=== PATIENT | male | born 1965 | race Hispanic/Latino ===

== ENCOUNTER 2017-02-07 00:31 | Emergency (ER) | payer MEDICAID ==
[2017-02-07 00:31] VITALS: BMI 31.2
--- NOTE | 2017-02-07 01:11 | ED PDOC ---
HPI: General Adult Time Seen by Provider: 02/07/17 01:10 Chief Complaint (Nursing): Abnormal Skin Integrity Chief Complaint (Provider): rash History Per: Patient (51 y/o male homeless here with complaint of rash noted today bilateral lower extremity. Has additional finding of lower extremity edema. Patient states this is new for him. IS not currently on any medications. Has had rash ) Past Medical History Vital Signs: Last Vital Signs Temp 98.6 F 02/07/17 00:38 Pulse 108 H 02/07/17 00:38 Resp 18 02/07/17 00:38 BP 141/70 02/07/17 00:38 Pulse Ox 100 02/07/17 02:53 - Medical History PMH: HTN Denies: Alzheimer's Disease, Anemia, Anxiety, Arthritis, Asthma, Atrial Fibrillation, Bipolar Disorder, Bronchitis, CAD, Cardia Arrhythmia, CHF, COPD, Crohn's Disease, Dementia, Depression, Diverticulitis, Emphysema, Fractures, Gastritis, Gall Bladder Disease, HIV, Hypercholesterolemia, Hyperthyroidism, Hypothyroidism, Kidney Stones, Migraine, Mitral Valve Prolapse, Multiple Sclerosis, Osteoporosis, Pancreatitis, Paranoia, Parkinson's Disease, Peripheral Edema, Pneumonia, Post Traumatic Stress Disorder, Pulmonary Embolism , Chronic Kidney Disease, Rheumatoid Arthritis, Schizophrenia, Seizures, Sickle Cell Disease, Sexually Transmitted Disease, Sleep Apnea, TIA - Surgical History Surgical History: Denies: Appendectomy, CABG, Carotid Endarterectomy, Cholecystectomy, Coronary Stent, Pacemaker, Tonsillectomy - Family History Family History: States: Unknown Family Hx - Home Medications Home Medications: Ambulatory Orders Medication Instructions Recorded Cyclobenzaprine [Cyclobenzaprine 10 mg PO TID #20 tab 01/20/17 HCl] Dicyclomine [Bentyl] 10 mg PO QID PRN #10 cap 01/20/17 Hydrocortisone 1% Cream [Cortizone 1 dap TOP BID #1 tube 01/20/17 1% Cream] Ibuprofen [Motrin] 600 mg PO Q6 #20 tab 01/20/17 Lisinopril [Prinivil] 1 tab PO DAILY 01/20/17 amLODIPine [Norvasc] 1 tab PO DAILY 01/20/17 hydroCHLOROthiazide [Hydrodiuril] 1 tab PO DAILY 01/20/17 Mupirocin 2% Cream [Bactroban 30 applic TOP BID PRN #30 tube 02/07/17 Cream] - Allergies Allergies/Adverse Reactions: Allergies Allergy/AdvReac Type Severity Reaction Status Date / Time No Known Allergies Allergy Verified 12/18/16 15:46 - Laboratory Results Result Diagrams: 02/07/17 01:15 02/07/17 01:15 - ECG O2 Sat by Pulse Oximetry: 100 Disposition - Clinical Impression Clinical Impression: Sun-damaged skin, Rash and nonspecific skin eruption - Patient ED Disposition Is Patient to be Admitted: No - Disposition Referrals: [facility] [Outside] Disposition: Routine/Home Disposition Time: 02:52 Condition: FAIR Prescriptions: Mupirocin 2% Cream [Bactroban Cream] 30 applic TOP BID PRN #30 tube PRN Reason: Rash Instructions: Sunburn (ED)
[2017-02-07 01:24] LABS: BASO # 0.1 K/uL (0.0-0.2); BASO % 0.9 % (0.0-2.0); EOS # 0.2 K/uL (0.0-0.7); EOS % 1.4 % (0.0-4.0); HEMATOCRIT 42.1 % (35.0-51.0); LYMPH # 1.7 K/uL (1.0-4.3); LYMPH % 15.7 % (20.0-40.0); MEAN CELL VOLUME 86.3 fl (80.0-94.0); MEAN CORPUSCULAR HEMOGLOBIN 29.5 pg (27.0-31.0); MEAN CORPUSCULAR HGB CONC 34.2 g/dL (33.0-37.0); MEAN PLATELET VOLUME 6.9 fl (7.2-11.7); MONO # 0.9 K/uL (0.0-0.8); MONO % 8.5 % (0.0-10.0); NEUT % 73.5 % (50.0-75.0); RED CELL DISTRIBUTION WIDTH 14.7 % (11.5-14.5); WHITE BLOOD COUNT 10.9 K/uL (4.8-10.8)
[2017-02-07 01:34] LABS: ALB/GLOB RATIO 1.2 (1.0-2.1); ALKALINE PHOSPHATASE 64 U/L (38-126); ALT/SGPT 41 U/L (21-72); AST/SGOT 33 U/L (17-59); BILIRUBIN,TOTAL 1.1 mg/dl (0.2-1.3); BLOOD UREA NITROGEN 10 mg/dl (9-20); CALCIUM 8.8 mg/dL (8.4-10.2); CARBON DIOXIDE 25 mmol/L (22-30); CHLORIDE 94 mmol/L (98-107); GFR AFRICAN-AMERICAN > 60; GLUCOSE,RANDOM 113 mg/dL (75-110); POTASSIUM 3.5 MMOL/L (3.6-5.0); SODIUM 133 mmol/l (132-148); TOTAL PROTEIN 7.5 G/DL (6.3-8.2)
[2017-02-07 03:07] VITALS: BP 149/87; PULSE 86; RESP 16; TEMP 98
[2017-02-07 03:10] VITALS: O2SAT 100
== END 2017-02-07 03:22 | disposition home or self-care (01) ==
LOC: H.ER 00:31
DX: L57.8 Other skin changes due to chronic exposure to nonionizing radiation (principal)

== ENCOUNTER 2017-02-18 13:55 | Emergency (ER) | payer MEDICAID ==
[2017-02-18 13:55] VITALS: BMI 31.2
[2017-02-18 14:22] VITALS: BP 156/85; PULSE 110; RESP 16; TEMP 98.5; O2SAT 100
--- NOTE | 2017-02-18 14:56 | ED PDOC ---
HPI: Skin/Bite Injury Time Seen by Provider: 02/18/17 14:45 Chief Complaint (Nursing): Abnormal Skin Integrity Chief Complaint (Provider): Abnormal Skin Integrity History Per: Patient History/Exam Limitations: no limitations Onset/Duration Of Symptoms: Days Current Symptoms Are (Timing): Still Present Quality Of Symptoms: Itching Severity: Mild Additional Complaint(s): Patient is a 51 year old male who presents to ED for evaluation of an itchy rash to extremities and abdomen for 2 weeks. Patient states he was initially evaluated in ED for rash to lower legs, prescribed Hydrocortisone cream but notes only mild relief. Patient concerned he may have scabies. Notes rash along hands and pubic region. States rash has since spread to upper extremities. Denies any new exposures. Patient also requesting a refill of his GERD medication, Omeprazole Past Medical History Reviewed: Historical Data, Nursing Documentation, Vital Signs Vital Signs: Last Vital Signs Temp 98.5 F 02/18/17 14:14 Pulse 110 H 02/18/17 14:14 Resp 16 02/18/17 14:14 BP 156/85 H 02/18/17 14:14 Pulse Ox 100 02/18/17 15:04 - Medical History PMH: HTN Denies: Alzheimer's Disease, Anemia, Anxiety, Arthritis, Asthma, Atrial Fibrillation, Bipolar Disorder, Bronchitis, CAD, Cardia Arrhythmia, CHF, COPD, Crohn's Disease, Dementia, Depression, Diverticulitis, Emphysema, Fractures, Gastritis, Gall Bladder Disease, HIV, Hypercholesterolemia, Hyperthyroidism, Hypothyroidism, Kidney Stones, Migraine, Mitral Valve Prolapse, Multiple Sclerosis, Osteoporosis, Pancreatitis, Paranoia, Parkinson's Disease, Peripheral Edema, Pneumonia, Post Traumatic Stress Disorder, Pulmonary Embolism , Chronic Kidney Disease, Rheumatoid Arthritis, Schizophrenia, Seizures, Sickle Cell Disease, Sexually Transmitted Disease, Sleep Apnea, TIA - Surgical History Surgical History: No Surg Hx Denies: Appendectomy, CABG, Carotid Endarterectomy, Cholecystectomy, Coronary Stent, Pacemaker, Tonsillectomy - Family History Family History: States: Unknown Family Hx - Home Medications Home Medications: Ambulatory Orders Medication Instructions Recorded Cyclobenzaprine [Cyclobenzaprine 10 mg PO TID #20 tab 01/20/17 HCl] Dicyclomine [Bentyl] 10 mg PO QID PRN #10 cap 01/20/17 Hydrocortisone 1% Cream [Cortizone 1 dap TOP BID #1 tube 01/20/17 1% Cream] Ibuprofen [Motrin] 600 mg PO Q6 #20 tab 01/20/17 Lisinopril [Prinivil] 1 tab PO DAILY 01/20/17 amLODIPine [Norvasc] 1 tab PO DAILY 01/20/17 hydroCHLOROthiazide [Hydrodiuril] 1 tab PO DAILY 01/20/17 Mupirocin 2% Cream [Bactroban 30 applic TOP BID PRN #30 tube 02/07/17 Cream] Omeprazole 40 mg PO DAILY #15 capsule. 02/18/17 Permethrin [Elimite] 60 gm TP ONCE #60 cream..g. 02/18/17 - Allergies Allergies/Adverse Reactions: Allergies Allergy/AdvReac Type Severity Reaction Status Date / Time No Known Allergies Allergy Verified 02/18/17 14:14 Review of Systems ROS Statement: Except As Marked, All Systems Reviewed And Found Negative Constitutional: Negative for: Fever, Chills Cardiovascular: Negative for: Chest Pain, Palpitations Respiratory: Negative for: Shortness of Breath Musculoskeletal: Negative for: Neck Pain, Back Pain Skin: Positive for: Rash Neurological: Negative for: Weakness, Numbness Physical Exam - Reviewed Nursing Documentation Reviewed: Yes Vital Signs Reviewed: Yes - Physical Exam Appears: Positive for: Non-toxic, No Acute Distress Head Exam: Positive for: ATRAUMATIC, NORMAL INSPECTION, NORMOCEPHALIC Skin: Positive for: Normal Color, Warm, Rash (papular lesions to upper axilla, bilateral inner thighs and pubic region ) Eye Exam: Positive for: Normal appearance ENT: Positive for: Normal ENT Inspection Neck: Positive for: Normal, Painless ROM Cardiovascular/Chest: Positive for: Regular Rate, Rhythm Respiratory: Positive for: CNT, Normal Breath Sounds Gastrointestinal/Abdominal: Positive for: Normal Exam, Bowel Sounds, Soft Back: Positive for: Normal Inspection Extremity: Positive for: Normal ROM Neurologic/Psych: Positive for: Alert, Oriented - ECG O2 Sat by Pulse Oximetry: 100 (RA) Pulse Ox Interpretation: Normal Medical Decision Making Medical Decision Making: Time: 1445 Initial Impression: Rash Initial Plan: Advised patient that we will prescribed a new medication and give a 2 week refill of his Omeprazole but he must follow up with PMD as soon as possible for further evaluation. Patient verbalized understanding and states he will see him next week Scribe Attestation: Documented by Loan Garcia, acting as a scribe for Cora Hodge PA-C. Provider Scribe Attestation: All medical record entries made by the Scribe were at my direction and personally dictated by me. I have reviewed the chart and agree that the record accurately reflects my personal performance of the history, physical exam, medical decision making, and the department course for this patient. I have also personally directed, reviewed, and agree with the discharge instructions and disposition. Disposition - Clinical Impression Clinical Impression: Rash and nonspecific skin eruption - Patient ED Disposition Is Patient to be Admitted: No - Disposition Disposition: Routine/Home Disposition Time: 15:43 Condition: FAIR Prescriptions: Permethrin [Elimite] 60 gm TP ONCE #60 cream..g. Omeprazole 40 mg PO DAILY #15 capsule. Instructions: Scabies (ED)
== END 2017-02-18 15:43 | disposition home or self-care (01) ==
LOC: H.ER 13:55
DX: R21 Rash and other nonspecific skin eruption (principal); I10 Essential (primary) hypertension

== ENCOUNTER 2017-04-12 10:48 | Emergency (ER) | payer MEDICAID ==
[2017-04-12 10:49] VITALS: BMI 31.2
[2017-04-12 10:54] VITALS: BP 156/99; PULSE 94; TEMP 97.9; O2SAT 98
[2017-04-12 11:00] VITALS: RESP 20
--- NOTE | 2017-04-12 11:32 | ED PDOC ---
HPI: General Adult Time Seen by Provider: 04/12/17 11:03 Chief Complaint (Nursing): Med Refill Chief Complaint (Provider): med refill History Per: Patient History/Exam Limitations: no limitations Additional Complaint(s): 51yo M in ED with hx of HTN for refill of HCTZ 50mg QD, Amlodipine 10mg QD, lisinopril 25mg QD, states he has been w/p medication x 5d and now has mild SINGH without weakness, vision changes, dizziness. PT states his doctor is too far to get to. Past Medical History Reviewed: Historical Data, Nursing Documentation, Vital Signs Vital Signs: Last Vital Signs Temp 97.9 F 04/12/17 10:58 Pulse 94 H 04/12/17 10:58 Resp 20 04/12/17 10:58 BP 156/99 H 04/12/17 10:58 Pulse Ox 98 04/12/17 10:58 - Medical History PMH: HTN Denies: Alzheimer's Disease, Anemia, Anxiety, Arthritis, Asthma, Atrial Fibrillation, Bipolar Disorder, Bronchitis, CAD, Cardia Arrhythmia, CHF, COPD, Crohn's Disease, Dementia, Depression, Diverticulitis, Emphysema, Fractures, Gastritis, Gall Bladder Disease, HIV, Hypercholesterolemia, Hyperthyroidism, Hypothyroidism, Kidney Stones, Migraine, Mitral Valve Prolapse, Multiple Sclerosis, Osteoporosis, Pancreatitis, Paranoia, Parkinson's Disease, Peripheral Edema, Pneumonia, Post Traumatic Stress Disorder, Pulmonary Embolism , Chronic Kidney Disease, Rheumatoid Arthritis, Schizophrenia, Seizures, Sickle Cell Disease, Sexually Transmitted Disease, Sleep Apnea, TIA - Surgical History Surgical History: Denies: Appendectomy, CABG, Carotid Endarterectomy, Cholecystectomy, Coronary Stent, Pacemaker, Tonsillectomy - Family History Family History: States: Unknown Family Hx - Home Medications Home Medications: Ambulatory Orders Medication Instructions Recorded Cyclobenzaprine [Cyclobenzaprine 10 mg PO TID #20 tab 01/20/17 HCl] Dicyclomine [Bentyl] 10 mg PO QID PRN #10 cap 01/20/17 Hydrocortisone 1% Cream [Cortizone 1 dap TOP BID #1 tube 01/20/17 1% Cream] Ibuprofen [Motrin] 600 mg PO Q6 #20 tab 01/20/17 Lisinopril [Prinivil] 1 tab PO DAILY 01/20/17 amLODIPine [Norvasc] 1 tab PO DAILY 01/20/17 hydroCHLOROthiazide [Hydrodiuril] 1 tab PO DAILY 01/20/17 Mupirocin 2% Cream [Bactroban 30 applic TOP BID PRN #30 tube 02/07/17 Cream] Omeprazole 40 mg PO DAILY #15 capsule.dr 02/18/17 Permethrin [Elimite] 60 gm TP ONCE #60 cream..g. 02/18/17 Lisinopril [Zestril] 20 mg PO DAILY #30 tab 04/12/17 amLODIPine [Norvasc] 10 mg PO DAILY #30 tab 04/12/17 hydroCHLOROthiazide [Microzide] 50 mg PO DAILY #30 tab 04/12/17 - Allergies Allergies/Adverse Reactions: Allergies Allergy/AdvReac Type Severity Reaction Status Date / Time No Known Allergies Allergy Verified 04/12/17 10:58 Review of Systems ROS Statement: Except As Marked, All Systems Reviewed And Found Negative Constitutional: Negative for: Fever, Weakness Eyes: Negative for: Vision Change Cardiovascular: Negative for: Chest Pain, Palpitations Musculoskeletal: Negative for: Neck Pain, Shoulder Pain Neurological: Positive for: Headache (mild). Negative for: Weakness, Numbness, Incoordination, Change in Speech, Confusion, Seizures, Altered Mental Status, Dizziness Physical Exam - Reviewed Nursing Documentation Reviewed: Yes Vital Signs Reviewed: Yes - Physical Exam Appears: Positive for: Well, Non-toxic, No Acute Distress Head Exam: Positive for: ATRAUMATIC, NORMAL INSPECTION, NORMOCEPHALIC Skin: Positive for: Normal Color, Warm, DRY Eye Exam: Positive for: Normal appearance, EOMI, PERRL Cardiovascular/Chest: Positive for: Regular Rate, Rhythm, Chest Non Tender Respiratory: Positive for: CNT, Normal Breath Sounds Gastrointestinal/Abdominal: Positive for: Normal Exam, Bowel Sounds, Soft. Negative for: Tenderness Neurologic/Psych: Positive for: Alert, grassroots organizer II-XII (intact), Oriented. Negative for: Motor/Sensory Deficits - ECG O2 Sat by Pulse Oximetry: 98 Medical Decision Making Medical Decision Making: PT at this time is stable, no longer is complaining of SINGH,. and denies additional symptoms pt is stable for d/c and given Rx for requested medication. 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 Disposition - Clinical Impression Clinical Impression: Medication refill - Patient ED Disposition Is Patient to be Admitted: No Counseled Patient/Family Regarding: Need For Followup, Rx Given - Disposition Referrals: [facility] [Outside] [facility] [Outside] Disposition: Routine/Home Disposition Time: 11:34 Condition: STABLE Prescriptions: amLODIPine [Norvasc] 10 mg PO DAILY #30 tab hydroCHLOROthiazide [Microzide] 50 mg PO DAILY #30 tab Lisinopril [Zestril] 20 mg PO DAILY #30 tab Instructions: Hypertension (ED)
== END 2017-04-12 12:00 | disposition home or self-care (01) ==
LOC: H.ER 10:48
DX: I10 Essential (primary) hypertension (principal)

== ENCOUNTER 2017-05-09 14:41 | Emergency (ER) | payer MEDICAID ==
[2017-05-09 14:41] VITALS: BMI 31.2
[2017-05-09 14:58] VITALS: BP 136/82; PULSE 116; RESP 19; TEMP 98.1; O2SAT 99
[2017-05-09] MEDS ORDERED: Alum-Mag Hydrox-Simethicone Susp (30 mL) PO ONE (15:43)
--- NOTE | 2017-05-09 15:59 | ED PDOC ---
HPI: General Adult Time Seen by Provider: 05/09/17 15:37 Chief Complaint (Nursing): Abdominal Pain Chief Complaint (Provider): nausea, heartburn History Per: Patient History/Exam Limitations: no limitations Current Symptoms Are (Timing): Still Present Recently: Seen In ED Additional Complaint(s): 51yo male states he ran out of his prilosec several weeks ago and now has symptoms of heartburn and nausea return. Denies vomiting, fever, melena or weakness. Past Medical History Reviewed: Historical Data, Nursing Documentation, Vital Signs Vital Signs: Last Vital Signs Temp 98.1 F 05/09/17 14:55 Pulse 116 H 05/09/17 14:55 Resp 19 05/09/17 14:55 BP 136/82 05/09/17 14:55 Pulse Ox 99 05/09/17 16:05 - Medical History PMH: HTN Denies: Alzheimer's Disease, Anemia, Anxiety, Arthritis, Asthma, Atrial Fibrillation, Bipolar Disorder, Bronchitis, CAD, Cardia Arrhythmia, CHF, COPD, Crohn's Disease, Dementia, Depression, Diverticulitis, Emphysema, Fractures, Gastritis, Gall Bladder Disease, HIV, Hypercholesterolemia, Hyperthyroidism, Hypothyroidism, Kidney Stones, Migraine, Mitral Valve Prolapse, Multiple Sclerosis, Osteoporosis, Pancreatitis, Paranoia, Parkinson's Disease, Peripheral Edema, Pneumonia, Post Traumatic Stress Disorder, Pulmonary Embolism , Chronic Kidney Disease, Rheumatoid Arthritis, Schizophrenia, Seizures, Sickle Cell Disease, Sexually Transmitted Disease, Sleep Apnea, TIA - Surgical History Surgical History: Denies: Appendectomy, CABG, Carotid Endarterectomy, Cholecystectomy, Coronary Stent, Pacemaker, Tonsillectomy - Family History Family History: States: Unknown Family Hx - Home Medications Home Medications: Ambulatory Orders Medication Instructions Recorded Cyclobenzaprine [Cyclobenzaprine 10 mg PO TID #20 tab 01/20/17 HCl] Dicyclomine [Bentyl] 10 mg PO QID PRN #10 cap 01/20/17 Hydrocortisone 1% Cream [Cortizone 1 dap TOP BID #1 tube 01/20/17 1% Cream] Ibuprofen [Motrin] 600 mg PO Q6 #20 tab 01/20/17 Lisinopril [Prinivil] 1 tab PO DAILY 01/20/17 amLODIPine [Norvasc] 1 tab PO DAILY 01/20/17 hydroCHLOROthiazide [Hydrodiuril] 1 tab PO DAILY 01/20/17 Mupirocin 2% Cream [Bactroban 30 applic TOP BID PRN #30 tube 02/07/17 Cream] Omeprazole 40 mg PO DAILY #15 capsule. 02/18/17 Permethrin [Elimite] 60 gm TP ONCE #60 cream..g. 02/18/17 Lisinopril [Zestril] 20 mg PO DAILY #30 tab 04/12/17 amLODIPine [Norvasc] 10 mg PO DAILY #30 tab 04/12/17 hydroCHLOROthiazide [Microzide] 50 mg PO DAILY #30 tab 04/12/17 Omeprazole Magnesium [Prilosec Otc] 20 mg PO DAILY #20 tablet. 05/09/17 - Allergies Allergies/Adverse Reactions: Allergies Allergy/AdvReac Type Severity Reaction Status Date / Time No Known Allergies Allergy Verified 04/12/17 10:58 Review of Systems ROS Statement: Except As Marked, All Systems Reviewed And Found Negative Constitutional: Negative for: Fever, Chills Cardiovascular: Negative for: Chest Pain, Palpitations Respiratory: Negative for: Cough, Shortness of Breath Gastrointestinal: Positive for: Nausea. Negative for: Vomiting Genitourinary Male: Negative for: Dysuria, Frequency Musculoskeletal: Negative for: Neck Pain, Shoulder Pain Skin: Negative for: Rash, Lesions, Jaundice Neurological: Negative for: Weakness, Numbness, Headache Physical Exam - Reviewed Nursing Documentation Reviewed: Yes Vital Signs Reviewed: Yes - Physical Exam Appears: Positive for: Well, Non-toxic, No Acute Distress Head Exam: Positive for: ATRAUMATIC, NORMAL INSPECTION, NORMOCEPHALIC Skin: Positive for: Normal Color, Warm, Dry (mild sunburn face) Eye Exam: Positive for: EOMI, Normal appearance, PERRL ENT: Positive for: Normal ENT Inspection Neck: Positive for: Normal, Painless ROM Cardiovascular/Chest: Positive for: Regular Rate, Rhythm Respiratory: Positive for: CNT, Normal Breath Sounds Gastrointestinal/Abdominal: Positive for: Bowel Sounds, Soft, Other (reducible umbilical hernia) Back: Positive for: Normal Inspection Extremity: Positive for: Normal ROM. Negative for: Tenderness Neurologic/Psych: Positive for: Alert, Oriented. Negative for: Motor/Sensory Deficits - ECG O2 Sat by Pulse Oximetry: 99 Medical Decision Making Medical Decision Makinyo male c/o epigastric burning since he ran out of prilosec medication. Unable to acquire new medication. Admits to social alcohol but denies daily etoh intake. Disposition - Clinical Impression Clinical Impression: Epigastric pain - Patient ED Disposition Is Patient to be Admitted: No Counseled Patient/Family Regarding: Need For Followup, Rx Given - Disposition Referrals: [facility] [Outside] Disposition: Routine/Home Disposition Time: 17:30 Condition: IMPROVED Additional Instructions: Followup with PMD and GI in 3-4 days. Return to ER for any new or worsening symptoms. Prescriptions: Omeprazole Magnesium [Prilosec Otc] 20 mg PO DAILY #20 tablet.dr Instructions: Acute Abdominal Pain (ED)
[2017-05-09] MEDS ORDERED: Alum-Mag Hydrox-Simethicone Susp (30 mL) ONE (17:08)
--- NOTE | 2017-05-15 06:32 | CARD ---
APPROVED REPORT EKG Measurement Heart [id number] <Conclusion> Sinus tachycardia Possible Left atrial enlargement Borderline ECG
== END 2017-05-09 18:45 | disposition home or self-care (01) ==
LOC: H.ER 14:41
DX: R10.13 Epigastric pain (principal); R12 Heartburn

== ENCOUNTER 2017-06-04 13:53 | Observation (INO) | payer MEDICAID ==
[2017-06-04 13:54] VITALS: BMI 31.2
--- NOTE | 2017-06-04 14:27 | ED PDOC ---
HPI: General Adult Time Seen by Provider: 06/04/17 14:10 Chief Complaint (Nursing): Med Refill Chief Complaint (Provider): Hypertension History Per: Patient History/Exam Limitations: no limitations Onset/Duration Of Symptoms: Days Have you had recent travel within the past 21 days to any of the following countries: [place], [place], [place] or [place]?: No Additional Complaint(s): The patient is a 51yo male, past medical history of hypertension, presents to the ED for evaluation of headache, present for the past couple days as the patient has not been able to take his medications due to running out of them. He denies any weaknesses and offers no additional medical complaints. 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 Past Medical History Reviewed: Historical Data, Nursing Documentation, Vital Signs Vital Signs: Last Vital Signs Temp 98 F 06/04/17 13:59 Pulse 98 H 06/04/17 15:56 Resp 18 06/04/17 15:42 BP 122/82 06/04/17 15:42 Pulse Ox 96 06/04/17 15:56 - Medical History PMH: HTN Denies: Alzheimer's Disease, Anemia, Anxiety, Arthritis, Asthma, Atrial Fibrillation, Bipolar Disorder, Bronchitis, CAD, Cardia Arrhythmia, CHF, COPD, Crohn's Disease, Dementia, Depression, Diverticulitis, Emphysema, Fractures, Gastritis, Gall Bladder Disease, HIV, Hypercholesterolemia, Hyperthyroidism, Hypothyroidism, Kidney Stones, Migraine, Mitral Valve Prolapse, Multiple Sclerosis, Osteoporosis, Pancreatitis, Paranoia, Parkinson's Disease, Peripheral Edema, Pneumonia, Post Traumatic Stress Disorder, Pulmonary Embolism , Chronic Kidney Disease, Rheumatoid Arthritis, Schizophrenia, Seizures, Sickle Cell Disease, Sexually Transmitted Disease, Sleep Apnea, TIA - Surgical History Surgical History: Denies: Appendectomy, CABG, Carotid Endarterectomy, Cholecystectomy, Coronary Stent, Pacemaker, Tonsillectomy - Family History Family History: States: Unknown Family Hx - Home Medications Home Medications: Ambulatory Orders Medication Instructions Recorded Cyclobenzaprine [Cyclobenzaprine 10 mg PO TID #20 tab 01/20/17 HCl] Dicyclomine [Bentyl] 10 mg PO QID PRN #10 cap 01/20/17 Hydrocortisone 1% Cream [Cortizone 1 dap TOP BID #1 tube 01/20/17 1% Cream] Ibuprofen [Motrin] 600 mg PO Q6 #20 tab 01/20/17 Lisinopril [Prinivil] 1 tab PO DAILY 01/20/17 amLODIPine [Norvasc] 1 tab PO DAILY 01/20/17 hydroCHLOROthiazide [Hydrodiuril] 1 tab PO DAILY 01/20/17 Mupirocin 2% Cream [Bactroban 30 applic TOP BID PRN #30 tube 02/07/17 Cream] Omeprazole 40 mg PO DAILY #15 capsule. 02/18/17 Permethrin [Elimite] 60 gm TP ONCE #60 cream..g. 02/18/17 Lisinopril [Zestril] 20 mg PO DAILY #30 tab 04/12/17 amLODIPine [Norvasc] 10 mg PO DAILY #30 tab 04/12/17 hydroCHLOROthiazide [Microzide] 50 mg PO DAILY #30 tab 04/12/17 Omeprazole Magnesium [Prilosec Otc] 20 mg PO DAILY #20 tablet. 05/09/17 - Allergies Allergies/Adverse Reactions: Allergies Allergy/AdvReac Type Severity Reaction Status Date / Time No Known Allergies Allergy Verified 04/12/17 10:58 Review of Systems ROS Statement: Except As Marked, All Systems Reviewed And Found Negative Constitutional: Negative for: Weakness Neurological: Positive for: Headache Physical Exam - Reviewed Nursing Documentation Reviewed: Yes Vital Signs Reviewed: Yes - Physical Exam Appears: Positive for: Well, Non-toxic, No Acute Distress Head Exam: Positive for: ATRAUMATIC, NORMAL INSPECTION, NORMOCEPHALIC Skin: Positive for: Normal Color, Warm, DRY Eye Exam: Positive for: EOMI, Normal appearance, PERRL Neck: Positive for: Normal, Supple Cardiovascular/Chest: Positive for: Regular Rate, Rhythm Respiratory: Positive for: Normal Breath Sounds. Negative for: Respiratory Distress Extremity: Positive for: Normal ROM, Other (faculty i on call medical assistant strength 5/5 bilaterally). Negative for: Deformity Neurologic/Psych: Positive for: Alert, Oriented. Negative for: Motor/Sensory Deficits - Laboratory Results Result Diagrams: 06/04/17 14:43 06/04/17 14:43 - ECG ECG: Positive for: Interpreted By Me, Viewed By Me ECG Rhythm: Positive for: Sinus Rhythm. Negative for: Nonspecific Changes Interpretation Of ECG: Performed at 1439. Rate: 98 O2 Sat by Pulse Oximetry: 96 Medical Decision Making Medical Decision Making: Time: 1420 Impression: Hypertension Plan: -- CT head -- Labs -- Amlodipine 10 mg -- Lisinopril 20 mg Reassess Time: 1535 CT Head IMPRESSION: Right periventricular and optic radiation lucency is appreciated of an indeterminate etiology in this 51-year-old patient. If the patient has a vasculopathic, then it may simply reflect chronic microangiopathy. Otherwise, evolving lacunar infarction not excluded on acute or subacute basis as well as other etiologies and further clinical correlation advised. Please see discussion above. No acute intra hemorrhage or significant mass effect. Decreased cerebral atrophy appears mild and is of uncertain origin. Yes CT head reviewed with ED attending Dr. Israel Time: 1545 Patient seen and evaluated by Dr. Israel at bedside. Dr. Israel advises patient to be admitted for 24 hours to be seen by neurologist for further evaluation. All questions answered and patient is agreeable. Time: [address] Armijo, neurologist conservation biology professor. Consult placed to Dr. Aguilar medical service conservation biology professor. Time: [address] Aguilar for admission. 16:00PM D/W DR. ARMIJO. REQUESTS MRI OF BRAIN FOR FURTHER EVALUATION OF CT SCAN FINDINGS Scribe Attestation: Documented by Racquel Remy acting as a scribe for DA Vázquez Provider Attestation: All medical record entries made by the Scribe were at my direction and personally dictated by me. I have reviewed the chart and agree that the record accurately reflects my personal performance of the history, physical exam, medical decision making, and the department course for this patient. I have also personally directed, reviewed, and agree with the discharge instructions and disposition. Disposition - Clinical Impression Clinical Impression: Abnormal finding on CT scan, Hypertensive urgency - Patient ED Disposition Is Patient to be Admitted: Yes - Disposition Disposition Time: 16:01 Condition: FAIR Forms: [employer] ([place]) - Pt Status Changed To: Hospital Disposition Of: Observation
[2017-06-04 15:06] LABS: ALBUMIN 4.5 g/dL (3.5-5.0)
[2017-06-04 15:09] LABS: ALB/GLOB RATIO 1.4 (1.0-2.1); AST/SGOT 30 U/L (17-59); BLOOD UREA NITROGEN 14 mg/dl (9-20); GFR AFRICAN-AMERICAN > 60; GFR NON-AFRICAN AMERICAN > 60
[2017-06-04 15:10] LABS: ALT/SGPT 33 U/L (21-72); CALCIUM 9.7 mg/dL (8.4-10.2)
[2017-06-04 15:15] LABS: BASO # 0.2 K/uL (0.0-0.2); BASO % 1.3 % (0.0-2.0); EOS # 0.2 K/uL (0.0-0.7); EOS % 1.6 % (0.0-4.0); LYMPH # 1.9 K/uL (1.0-4.3); LYMPH % 16.1 % (20.0-40.0); MEAN CELL VOLUME 88.7 fl (80.0-94.0); MEAN CORPUSCULAR HEMOGLOBIN 30.6 pg (27.0-31.0); MEAN CORPUSCULAR HGB CONC 34.5 g/dL (33.0-37.0); MEAN PLATELET VOLUME 7.6 fl (7.2-11.7); MONO # 1.1 K/uL (0.0-0.8); MONO % 9.3 % (0.0-10.0); NEUT # 8.6 K/uL (1.8-7.0); NEUT % 71.7 % (50.0-75.0); RBC 5.23 Mil/uL (4.40-5.90)
--- NOTE | 2017-06-04 15:34 | CT ---
PROCEDURE: CT HEAD WITHOUT CONTRAST. HISTORY: AMS COMPARISON: None available. TECHNIQUE: Axial computed tomography images were obtained through the head/brain without intravenous contrast. Radiation dose: Total exam DLP = 875 mGy-cm. This CT exam was performed using one or more of the following dose reduction techniques: Automated exposure control, adjustment of the mA and/or kV according to patient size, and/or use of iterative reconstruction technique. FINDINGS: HEMORRHAGE: No intracranial hemorrhage. BRAIN: No mass effect. Note is made of a right periventricular lucency as well as a rounded lucency in the right optic radiation of the right parietal lobe. If the patient is a vasculopath in these lucent findings may reflect chronic microangiopathy may reflect both but in the absence significant vascular disorder, consider other etiologies including prior demyelination or even evolving acute or subacute lacune anteriorly to the right. Mild expansion of the ventricular sulcal sternal spaces appreciated compatible with diffuse cerebral atrophy, somewhat accelerated for the patient's age of 51 years. Clinically correlate. Posterior fossa contents appear unremarkable to the brainstem. VENTRICLES: . No hydrocephalus. CALVARIUM: Unremarkable. PARANASAL SINUSES: Unremarkable as visualized. No significant inflammatory changes. MASTOID AIR CELLS: Unremarkable as visualized. No inflammatory changes. OTHER FINDINGS: None. IMPRESSION: Right periventricular and optic radiation lucency is appreciated of an indeterminate etiology in this 51-year-old patient. If the patient has a vasculopathic, then it may simply reflect chronic microangiopathy. Otherwise, evolving lacunar infarction not excluded on acute or subacute basis as well as other etiologies and further clinical correlation advised. Please see discussion above. No acute intra hemorrhage or significant mass effect. Decreased cerebral atrophy appears mild and is of uncertain origin. Yes
--- NOTE | 2017-06-04 18:02 | MRI ---
PROCEDURE: MRI BRAIN WITHOUT CONTRAST HISTORY: EVALUATE FOR POSSIBLE SUBACUTE INFARCT COMPARISON: Comparison made with prior CT scan obtained earlier same day. TECHNIQUE: Multiplanar, multisequence MR images of the brain were obtained without intravenous contrast enhancement. FINDINGS: HEMORRHAGE: No acute parenchymal, subarachnoid or extra-axial hemorrhage. DWI: No definitive evidence of acute infarcts seen on diffusion imaging small focal area of what appears represent shine through artifact noted in the subcortical region right posterior temporoparietal watershed zone. BRAIN PARENCHYMA: Re- demonstrated is a any elliptical shaped approximately 14 mm x 6.3 mm focus of increased T2 signal in the right carrington radiata/ inferior centrum semiovale nonspecific the however this lesion also exhibits some shine through type artifact. Rule out a demyelinating plaque. Additionally, there appear to be some very minimal slightly confluent prolonged T2 signal changes in the periventricular white matter most conspicuous in the parietal regions with more discrete focus adjacent to the right parieto-occipital sulcus. Multiple smaller focal areas of increased T2 signal also seen scattered about the subcortical white matter both cerebral hemispheres. Changes are of uncertain etiology however as mentioned above, rule out a demyelinating disease process such as multiple sclerosis. Chronic sequela of small vessel disease, sequela of old trauma, migraine headaches or post infectious/ inflammatory etiologies to be considered. Mild generalized volume loss. VENTRICLES: No evidence of obstructive hydrocephalus CRANIUM: Calvarium appears grossly intact. ORBITS: Orbits and contents grossly unremarkable. PARANASAL SINUSES/MASTOIDS: Clear VASCULAR SYSTEM: Skull base flow voids intact. OTHER FINDINGS: None. IMPRESSION: No evidence of acute intracranial hemorrhage or infarct. There are mild slightly confluent prolonged T2 signal changes seen in the periventricular white matter. Additionally, a discrete elliptical shaped focus of increased T2 signal in the right carrington radiata/centrum semiovale with this long axis perpendicular to the long axis of the ventricles noted. Rule out demyelinating disease process such as multiple sclerosis. See above discussion for additional differential diagnostic considerations. Smaller additional focal areas of increased T2 signal scattered about the subcortical white matter as detailed above.
--- NOTE | 2017-06-05 04:25 | CON ---
LOCATION: The patient's room number is 418, bed number 2. REASON FOR CONSULTATION: Abnormal CAT scan. CHIEF COMPLAINT: The patient was brought into [facility] with history of 4 to 5 days of right frontal headache. Because of the headache, the patient did have CT of the head, which showed some subacute process of stroke. Because of the abnormal CAT scan finding, from neurologic point of view, I was called in and the patient was admitted for further evaluation. PAST MEDICAL HISTORY: Hypertension. PERSONAL HISTORY: He is a smoker. No history of alcohol use. ALLERGIES: NO KNOWN ALLERGIES. REVIEW OF SYSTEMS: As per H and P. MEDICATIONS: Amlodipine, Zestril and lisinopril. PHYSICAL EXAMINATION: VITAL SIGNS: Blood pressure 122/82, mean arterial pressure of 95, respiratory rate is 16, temperature *------*, pulse rate 98 regular. NECK: Supple. No carotid bruit. HEART: Sounds regular. CHEST: Fair air entry. EXTREMITIES: No edema in legs. NEUROLOGIC EXAMINATION: MENTAL STATUS EXAMINATION: He is awake, alert, oriented to person, place and time. Speech is clear. Naming, repetition, fluency, comprehension all within normal. CRANIAL NERVE EXAMINATION: Visual field intact. Pupils reactive to light. Extraocular movements normal. No facial sensory deficit. 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 Hearing is normal. Tongue is midline. Good gag. MOTOR EXAMINATION: Outstretched hand with eyes closed, no drift noted. Power is symmetric on either side. DEEP TENDON REFLEXES: Biceps to brachialis, triceps 1+. Both knees are 1+. Both ankles are absent. Plantars are downgoing. SENSORY EXAMINATION: Grossly intact. GAIT: Romberg sign negative. Tandem is good. CONCLUSION: Upon reviewing his history and neurological examination, the patient has been presenting with no lateralizing sign at present. No ischemic process is going on from neurological point of view. His radiological findings are incidental findings. WORKUP: MRI of the brain showed 14 mm x 6.3 mm focus of increased T2 signal over right carrington radiata inferior to the centrum ovale region. There is also evidence of increased T2 signal in periventricular region noted. Multiple small areas of focal area of T2 signals noted in addition to this. EKG, normal sinus rhythm. BLOOD WORKUP: WBC 12.0, hemoglobin 16.0, hematocrit 46.3, platelet 342. Sodium 130, potassium 4.4, chloride of 94, bicarbonate is 26, BUN of 14, creatinine 0.9. GFR more than 60. Liver functions are normal. RECOMMENDATIONS: 1. The patient should be on blood pressure medication to keep the blood pressure under well control. 2. NSAID can be given for his headache. 3. Aspirin should be given for stroke prophylaxis. The patient should be checked for his lipid profile and given statin. The patient's abstinence from smoking has been well discussed with him. The patient should have further workup of his abnormal MRI that can be done as outpatient. The patient's condition has been well discussed. If medically stable, the patient can be discharged and should have followup visit as outpatient. Raz Dominguez MD
[2017-06-05] MEDS ORDERED: Pantoprazole 20 mg EC Tab PO SCH (09:00)
--- NOTE | 2017-06-05 10:33 | CARD ---
APPROVED REPORT EKG Measurement Heart [id number] <Conclusion> Normal sinus rhythm Possible Left atrial enlargement Borderline ECG
--- NOTE | 2017-06-05 15:22 | CP.PCM.HP ---
History of Present Illness - History of Present Illness History of Present Illness: 51 y/o obese male with a PMHx of HTN, [place] Palsy, presented to the [facility] ED for evaluation of headache. Pt reports headaches started a couple of days ago when he ran out of his anti-hypertension medications. Pain is 7/10, intermittent, nonradiating, w/o changes in vision, exacerbated by movement and mildly alleviated with rest/OTC NSAIDS. No other complaints. He denies fever/chills, changes in vision, dizziness/lightheadedness, CP/SOB/Palpitaitons, N/V/D/C, urinary symptoms, numbness/tingling/weakness. 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 FamilyHx: unknown ED COURSE: Vitals on presentation: T 98, BP 140/92, HR 108, RR 18, POX 96% RA Labs: CBC: 12.0>16.0/46.3<342 CMP: Na 130, otherwise WNL Imaging: Noncontrast CT HEAD: Right periventricular and optic radiation lucency is appreciated of an indeterminate etiology in this 51-year-old patient. If the patient has a vasculopathic, then it may simply reflect chronic microangiopathy. Otherwise, evolving lacunar infarction not excluded on acute or subacute basis as well as other etiologies and further clinical correlation advised. Please see discussion above. No acute intra hemorrhage or significant mass effect. Decreased cerebral atrophy appears mild and is of uncertain origin Admitted for Obs and neuro consult Present on Admission - Present on Admission Any Indicators Present on Admission: No Past Patient History - Infectious Disease Hx of Infectious Diseases: None - Past Medical History & Family History Past Medical History?: Yes - Past Social History Smoking Status: Heavy Smoker > 10 Cigarettes Daily - CARDIAC Hx Cardiac Disorders: Yes Hx Hypertension: Yes - PULMONARY Hx Respiratory Disorders: No - NEUROLOGICAL Hx Neurological Disorder: No - HEENT Hx HEENT Problems: No - RENAL Hx Chronic Kidney Disease: No - ENDOCRINE/METABOLIC Hx Endocrine Disorders: No - HEMATOLOGICAL/ONCOLOGICAL Hx Blood Disorders: No Hx AIDS: No Hx Human Immunodeficiency Virus (HIV): No - INTEGUMENTARY Hx Dermatological Problems: No - MUSCULOSKELETAL/RHEUMATOLOGICAL Hx Arthritis: Yes Hx Falls: No - GASTROINTESTINAL Hx Crohn's Disease: No Hx Diverticulitis: No Hx Gall Bladder Disease: No Hx Gastritis: No Hx Pancreatitis: No - GENITOURINARY/GYNECOLOGICAL Hx Genitourinary Disorders: No - PSYCHIATRIC Hx Psychophysiologic Disorder: No Hx Substance Use: No - SURGICAL HISTORY Hx Appendectomy: No Hx Carotid Endarterectomy: No Hx Cholecystectomy: No Hx Coronary Artery Bypass Graft: No Hx Coronary Stent: No Hx Herniorrhaphy: Yes (umbilical hernia repair) Hx Orthopedic Surgery: Yes (left forearm fx as a kid) Hx Tonsillectomy: No - ANESTHESIA Hx Anesthesia: Yes Hx Anesthesia Reactions: No Meds Home Medications: Home Medication List Medication Instructions Recorded Confirmed Type Aspirin [Ecotrin] 81 mg PO DAILY #30 06/05/17 Rx Atorvastatin [Lipitor] 10 mg PO DAILY #30 tab 06/05/17 Rx Lisinopril/Hydrochlorothiazide 1 each PO DAILY #30 tablet 06/05/17 Rx [Lisinopril-Hctz 20-25 mg Tab] amLODIPine [Norvasc] 10 mg PO DAILY #30 tab 06/05/17 Rx Allergies/Adverse Reactions: Allergies Allergy/AdvReac Type Severity Reaction Status Date / Time No Known Allergies Allergy Verified 04/12/17 10:58 Physical Exam - Constitutional Appears: Non-toxic, No Acute Distress - Head Exam Head Exam: ATRAUMATIC, NORMOCEPHALIC - Eye Exam Eye Exam: EOMI. absent: Conjunctival injection, Scleral icterus Pupil Exam: PERRL - ENT Exam ENT Exam: Mucous Membranes Moist - Respiratory Exam Respiratory Exam: Clear to Auscultation Bilateral, NORMAL BREATHING PATTERN. absent: Rales, Rhonchi, Wheezes - Cardiovascular Exam Cardiovascular Exam: REGULAR RHYTHM, RRR, +S1, +S2. absent: JVD, Rubs - GI/Abdominal Exam GI & Abdominal Exam: Normal Bowel Sounds, Soft. absent: Tenderness - Extremities Exam Extremities exam: Positive for: normal inspection - Back Exam Back exam: NORMAL INSPECTION - Neurological Exam Neurological exam: Alert, CN II-XII Intact, Oriented x3 - Psychiatric Exam Psychiatric exam: Normal Affect, Normal Mood Results - Vital Signs Recent Vital Signs: Last Vital Signs Temp 97.5 F L 06/05/17 12:00 Pulse 88 06/05/17 12:00 Resp 18 06/05/17 12:00 BP 136/79 06/05/17 12:00 Pulse Ox 97 06/05/17 12:00 - Labs Result Diagrams: 06/04/17 14:43 06/04/17 14:43 Assessment & Plan (1) Abnormal finding on CT scan Assessment and Plan: rule out CVA Neurology on board Brain MRI ordered Status: Acute (2) Hypertension Assessment and Plan: resumed pts home meds Status: Chronic
--- NOTE | 2017-06-05 15:22 | CP.PCM.DIS ---
Provider - Provider Date of Admission: 06/04/17 16:07 Attending physician: Tello Aguilar MD Time Spent in preparation of Discharge (in minutes): 35 Diagnosis - Discharge Diagnosis (1) Abnormal finding on CT scan Status: Acute Hospital Course - Lab Results Lab Results: Most Recent Lab Values WBC 12.0 K/uL (4.8-10.8) H 06/04/17 14:43 RBC 5.23 Mil/uL (4.40-5.90) 06/04/17 14:43 Hgb 16.0 g/dL (12.0-18.0) 06/04/17 14:43 Hct 46.3 % (35.0-51.0) 06/04/17 14:43 MCV 88.7 fl (80.0-94.0) D 06/04/17 14:43 MCH 30.6 pg (27.0-31.0) 06/04/17 14:43 MCHC 34.5 g/dL (33.0-37.0) 06/04/17 14:43 RDW 13.0 % (11.5-14.5) 06/04/17 14:43 Plt Count 342 K/uL (130-400) 06/04/17 14:43 MPV 7.6 fl (7.2-11.7) 06/04/17 14:43 Neut % (Auto) 71.7 % (50.0-75.0) 06/04/17 14:43 Lymph % (Auto) 16.1 % (20.0-40.0) L 06/04/17 14:43 [place] % (Auto) 9.3 % (0.0-10.0) 06/04/17 14:43 Eos % (Auto) 1.6 % (0.0-4.0) 06/04/17 14:43 Baso % (Auto) 1.3 % (0.0-2.0) 06/04/17 14:43 Neut # 8.6 K/uL (1.8-7.0) H 06/04/17 14:43 Lymph # 1.9 K/uL (1.0-4.3) 06/04/17 14:43 [place] # 1.1 K/uL (0.0-0.8) H 06/04/17 14:43 Eos # 0.2 K/uL (0.0-0.7) 06/04/17 14:43 Baso # 0.2 K/uL (0.0-0.2) 06/04/17 14:43 Sodium 130 mmol/l (132-148) L 06/04/17 14:43 Potassium 4.4 MMOL/L (3.6-5.0) 06/04/17 14:43 Chloride 94 mmol/L (98-107) L 06/04/17 14:43 Carbon Dioxide 26 mmol/L (22-30) 06/04/17 14:43 Anion Gap 14 (10-20) 06/04/17 14:43 BUN 14 mg/dl (9-20) 06/04/17 14:43 Creatinine 0.9 mg/dL (0.8-1.5) 06/04/17 14:43 Est GFR ( Amer) > 60 06/04/17 14:43 Est GFR (Non-Af Amer) > 60 06/04/17 14:43 Random Glucose 87 mg/dL (75-110) 06/04/17 14:43 Calcium 9.7 mg/dL (8.4-10.2) 06/04/17 14:43 Total Bilirubin 0.7 mg/dl (0.2-1.3) 06/04/17 14:43 AST 30 U/L (17-59) 06/04/17 14:43 ALT 33 U/L (21-72) 06/04/17 14:43 Alkaline Phosphatase 67 U/L (38-126) 06/04/17 14:43 Total Protein 7.8 G/DL (6.3-8.2) 06/04/17 14:43 Albumin 4.5 g/dL (3.5-5.0) 06/04/17 14:43 Globulin 3.3 gm/dL (2.2-3.9) 06/04/17 14:43 Albumin/Globulin Ratio 1.4 (1.0-2.1) 06/04/17 14:43 - Hospital Course Hospital Course: 51 y/o obese male with a PMHx of HTN, [place] Palsy, presented to the [facility] ED for evaluation of headache. Pt reports headaches started a couple of days ago when he ran out of his anti-hypertension medications. Pain is 7/10, intermittent, nonradiating, w/o changes in vision, exacerbated by movement and mildly alleviated with rest/OTC NSAIDS. No other complaints. He denies fever/chills, changes in vision, dizziness/lightheadedness, CP/SOB/Palpitaitons, N/V/D/C, urinary symptoms, numbness/tingling/weakness. 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 FamilyHx: unknown ED COURSE: Vitals on presentation: T 98, BP 140/92, HR 108, RR 18, POX 96% RA Labs: CBC: 12.0>16.0/46.3<342 CMP: Na 130, otherwise WNL Imaging: Noncontrast CT HEAD: Right periventricular and optic radiation lucency is appreciated of an indeterminate etiology in this 51-year-old patient. If the patient has a vasculopathic, then it may simply reflect chronic microangiopathy. Otherwise, evolving lacunar infarction not excluded on acute or subacute basis as well as other etiologies and further clinical correlation advised. Please see discussion above. No acute intra hemorrhage or significant mass effect. Decreased cerebral atrophy appears mild and is of uncertain origin Admitted for Obs and neuro consult HOSPITAL COURSE: Pt remained normotensive thoughout stay. Dr. Dominguez saw the pt and recommeded decreased tobacco usage, starting the pt on statin and controlling BP. Brain MRI was performed and was negative for acute hemorrhage or infarct. After an uneventful hospital stay, the pt was discharged in stable condition. Discharge Exam - Head Exam Head Exam: ATRAUMATIC, NORMAL INSPECTION, NORMOCEPHALIC - Eye Exam Eye Exam: EOMI Pupil Exam: PERRL - Respiratory Exam Respiratory Exam: Clear to PA & Lateral, NORMAL BREATHING PATTERN, UNREMARKABLE - Cardiovascular Exam Cardiovascular Exam: REGULAR RHYTHM, RRR, +S1, +S2. absent: JVD - GI/Abdominal Exam GI & Abdominal Exam: Normal Bowel Sounds, Unremarkable - Extremities Exam Extremities exam: normal inspection - Neurological Exam Neurological exam: Alert, CN II-XII Intact, Oriented x3, Reflexes Normal - Psychiatric Exam Psychiatric exam: Normal Affect, Normal Mood - Skin Skin Exam: Dry, Intact, Normal Color Discharge Plan - Discharge Medications Prescriptions: amLODIPine [Norvasc] 10 mg PO DAILY #30 tab Aspirin [Ecotrin] 81 mg PO DAILY #30 Atorvastatin [Lipitor] 10 mg PO DAILY #30 tab Lisinopril/Hydrochlorothiazide [Lisinopril-Hctz 20-25 mg Tab] 1 each PO DAILY # 30 tablet - Follow Up Plan Condition: FAIR Disposition: HOME/ ROUTINE Instructions: Chronic Hypertension (DC) Additional Instructions: patient cleared for discharge to Home today by ] Rx for all meds provided pt. will f/u with in 1 week fu with neuro outpatient in 1 week
[2017-06-05 15:48] VITALS: BP 102/65; PULSE 99; RESP 20; TEMP 98; O2SAT 98
== END 2017-06-05 16:25 | disposition home or self-care (01) ==
LOC: H.ER 13:53 → H.ERHOLD 16:07 → H.TEL 18:56
PROVIDERS: ADMIT Family Medicine; ATTEND Family Medicine
DX: R93.0 Abnormal findings on diagnostic imaging of skull and head, not elsewhere classified (principal); I10 Essential (primary) hypertension; G51.0 Bell's palsy; E66.9 Obesity, unspecified; Z68.31 Body mass index [BMI] 31.0-31.9, adult; F17.200 Nicotine dependence, unspecified, uncomplicated

== ENCOUNTER 2017-06-30 22:40 | Emergency (ER) | payer MEDICAID ==
[2017-06-30 22:40] VITALS: BMI 31.2
--- NOTE | 2017-06-30 23:10 | ED PDOC ---
HPI: General Adult Time Seen by Provider: 06/30/17 23:04 Chief Complaint (Nursing): Medical Clearance Chief Complaint (Provider): insect bites History Per: Patient Additional Complaint(s): 51-year-old male with history of high blood pressure presents to emergency department with insect bites to buttocks area 2 days. Patient believes he was bit by mosquitoes. Patient denies any symptoms of possible infestation. He has history of bedbugs and states that his symptoms today are not consistent with previous bedbugs infestations. Patient has insect bites to buttocks region only. He denies active drainage, no fever or chills. Past Medical History Reviewed: Historical Data, Nursing Documentation, Vital Signs Vital Signs: Last Vital Signs Temp 98.1 F 06/30/17 23:22 Pulse 83 06/30/17 23:22 Resp 18 06/30/17 23:22 BP 147/81 06/30/17 23:22 Pulse Ox 98 06/30/17 23:22 - Medical History PMH: Arthritis, HTN Denies: Alzheimer's Disease, Anemia, Anxiety, Asthma, Atrial Fibrillation, Bipolar Disorder, Bronchitis, CAD, Cardia Arrhythmia, CHF, COPD, Crohn's Disease , Dementia, Depression, Diverticulitis, Emphysema, Fractures, Gastritis, Gall Bladder Disease, HIV, Hypercholesterolemia, Hyperthyroidism, Hypothyroidism, Kidney Stones, Migraine, Mitral Valve Prolapse, Multiple Sclerosis, Osteoporosis , Pancreatitis, Paranoia, Parkinson's Disease, Peripheral Edema, Pneumonia, Post Traumatic Stress Disorder, Pulmonary Embolism, Chronic Kidney Disease, Rheumatoid Arthritis, Schizophrenia, Seizures, Sickle Cell Disease, Sexually Transmitted Disease, Sleep Apnea, TIA - Surgical History Surgical History: Denies: Appendectomy, CABG, Carotid Endarterectomy, Cholecystectomy, Coronary Stent, Pacemaker, Tonsillectomy - Family History Family History: States: No Known Family Hx - Living Arrangements Living Arrangements: Other (non-domiciled) - Social History Current smoker - smoking cessation education provided: No Alcohol: None Drugs: Denies - Home Medications Home Medications: Ambulatory Orders Medication Instructions Recorded Aspirin [Ecotrin] 81 mg PO DAILY #30 06/05/17 Atorvastatin [Lipitor] 10 mg PO DAILY #30 tab 06/05/17 Lisinopril/Hydrochlorothiazide 1 each PO DAILY #30 tablet 06/05/17 [Lisinopril-Hctz 20-25 mg Tab] amLODIPine [Norvasc] 10 mg PO DAILY #30 tab 06/05/17 DiphenhydrAMINE [Benadryl] 25 mg PO ASDIR #1 packet 06/30/17 Prednisone 50 mg PO DAILY #5 tablet 06/30/17 - Allergies Allergies/Adverse Reactions: Allergies Allergy/AdvReac Type Severity Reaction Status Date / Time No Known Allergies Allergy Verified 04/12/17 10:58 Review of Systems ROS Statement: Except As Marked, All Systems Reviewed And Found Negative Constitutional: Negative for: Fever Skin: Positive for: Other (insect bites to buttocks) Physical Exam - Reviewed Nursing Documentation Reviewed: Yes Vital Signs Reviewed: Yes - Physical Exam Appears: Positive for: Well, Non-toxic, No Acute Distress Skin: Positive for: Rash (Raised erythematous lesions noted to buttocks bilaterally, appearance consistent with insect bites, no acute infection) Eye Exam: Positive for: Normal appearance Cardiovascular/Chest: Positive for: Regular Rate, Rhythm Respiratory: Positive for: Normal Breath Sounds Neurologic/Psych: Positive for: Alert, Oriented - ECG O2 Sat by Pulse Oximetry: 98 Pulse Ox Interpretation: Normal Medical Decision Making Medical Decision Makin51 year old with insect bites to buttocks Patient given initial dose of prednisone and Benadryl. Prescriptions given for same. Patient was advised to keep area clean and dry and take meds as directed. He was referred to clinic for follow up. Disposition - Clinical Impression Clinical Impression: Insect bites - Patient ED Disposition Is Patient to be Admitted: No Counseled Patient/Family Regarding: Diagnosis, Need For Followup, Rx Given - Disposition Referrals: [facility] [Outside] Disposition: Routine/Home Disposition Time: 23:05 Condition: STABLE Additional Instructions: Take rx meds as directed. Follow up in 2-3 days with clinic. Prescriptions: DiphenhydrAMINE [Benadryl] 25 mg PO ASDIR #1 packet Prednisone 50 mg PO DAILY #5 tablet Instructions: Insect Bite or Sting (ED) Forms: [employer] (Croatian)
[2017-06-30 23:23] VITALS: BP 147/81; PULSE 83; RESP 18; TEMP 98.1; O2SAT 98
== END 2017-06-30 23:48 | disposition home or self-care (01) ==
LOC: H.ER 22:40
DX: T14.8 Other injury of unspecified body region (principal); W57.XXXA Bitten or stung by nonvenomous insect and other nonvenomous arthropods, initial encounter; Y92.89 Other specified places as the place of occurrence of the external cause; I10 Essential (primary) hypertension; Z79.82 Long term (current) use of aspirin

== ENCOUNTER 2017-09-01 13:55 | Emergency (ER) | payer MEDICAID ==
[2017-09-01 13:56] VITALS: BMI 31.2
[2017-09-01 14:03] VITALS: RESP 16; TEMP 98
--- NOTE | 2017-09-01 14:34 | ED PDOC ---
Lower Extremity Pain/Injury Time Seen by Provider: 09/01/17 14:15 Chief Complaint (Nursing): Lower Extremity Problem/Injury Chief Complaint (Provider): Left ankle pain History Per: Patient History/Exam Limitations: no limitations Onset/Duration Of Symptoms: Days (x1) Current Symptoms Are (Timing): Still Present Additional Complaint(s): Juan J is a 51 y/o non-domiciled male who presents to the ED complaining of left ankle pain since this morning. He states that this morning he was sitting on the bench when his leg fell asleep, and he jumped up, rolling the left ankle. Took Ibuprofen this morning without relief. He is able to ambulate and move his toes. PMD: Provider TBD Past Medical History Reviewed: Historical Data, Nursing Documentation, Vital Signs Vital Signs: Last Vital Signs Temp 98.0 F 09/01/17 14:00 Pulse 97 H 09/01/17 14:00 Resp 16 09/01/17 14:00 BP 178/112 H 09/01/17 14:00 Pulse Ox 98 09/01/17 14:00 - Medical History PMH: Arthritis, HTN Denies: Alzheimer's Disease, Anemia, Anxiety, Asthma, Atrial Fibrillation, Bipolar Disorder, Bronchitis, CAD, Cardia Arrhythmia, CHF, COPD, Crohn's Disease , Dementia, Depression, Diverticulitis, Emphysema, Fractures, Gastritis, Gall Bladder Disease, HIV, Hypercholesterolemia, Hyperthyroidism, Hypothyroidism, Kidney Stones, Migraine, Mitral Valve Prolapse, Multiple Sclerosis, Osteoporosis , Pancreatitis, Paranoia, Parkinson's Disease, Peripheral Edema, Pneumonia, Post Traumatic Stress Disorder, Pulmonary Embolism, Chronic Kidney Disease, Rheumatoid Arthritis, Schizophrenia, Seizures, Sickle Cell Disease, Sexually Transmitted Disease, Sleep Apnea, TIA - Surgical History Surgical History: Denies: Appendectomy, CABG, Carotid Endarterectomy, Cholecystectomy, Coronary Stent, Pacemaker, Tonsillectomy - Family History Family History: States: Unknown Family Hx - Living Arrangements Living Arrangements: Other (Non-domiciled) - Home Medications Home Medications: Ambulatory Orders Medication Instructions Recorded Aspirin [Ecotrin] 81 mg PO DAILY #30 06/05/17 Atorvastatin [Lipitor] 10 mg PO DAILY #30 tab 06/05/17 Lisinopril/Hydrochlorothiazide 1 each PO DAILY #30 tablet 06/05/17 [Lisinopril-Hctz 20-25 mg Tab] amLODIPine [Norvasc] 10 mg PO DAILY #30 tab 06/05/17 DiphenhydrAMINE [Benadryl] 25 mg PO ASDIR #1 packet 06/30/17 Prednisone 50 mg PO DAILY #5 tablet 06/30/17 traMADol [Ultram] 50 mg PO Q6H PRN #5 tab 09/01/17 - Allergies Allergies/Adverse Reactions: Allergies Allergy/AdvReac Type Severity Reaction Status Date / Time No Known Allergies Allergy Verified 04/12/17 10:58 Review of Systems ROS Statement: Except As Marked, All Systems Reviewed And Found Negative Musculoskeletal: Positive for: Foot Pain (Left ankle) Physical Exam - Reviewed Nursing Documentation Reviewed: Yes Vital Signs Reviewed: Yes - Physical Exam Appears: Positive for: Well, Non-toxic, No Acute Distress Head Exam: Positive for: ATRAUMATIC, NORMAL INSPECTION, NORMOCEPHALIC Skin: Positive for: Normal Color, Warm, Dry Eye Exam: Positive for: Normal appearance Neck: Positive for: Normal Respiratory: Negative for: Accessory Muscle Use, Respiratory Distress Extremity: Positive for: Normal ROM, Capillary Refill (< 2 sec). Negative for: Tenderness, Pedal Edema, Deformity Neurologic/Psych: Positive for: Alert, Oriented - ECG O2 Sat by Pulse Oximetry: 98 (RA) Pulse Ox Interpretation: Normal Medical Decision Making Medical Decision Making: Time: 14:45 Initial Plan: --X-Ray Left Foot --Tramadol 50 mg PO --Pending reevaluation Scribe Attestation: Documented by Pamela Garcia, acting as a scribe for Azucena Cherry PA-C Provider Scribe Attestation: All medical record entries made by the Scribe were at my direction and personally dictated by me. I have reviewed the chart and agree that the record accurately reflects my personal performance of the history, physical exam, medical decision making, and the department course for this patient. I have also personally directed, reviewed, and agree with the discharge instructions and disposition. Disposition - Clinical Impression Clinical Impression: Foot injury - Disposition Disposition: Routine/Home Disposition Time: 15:29 Condition: GOOD Prescriptions: traMADol [Ultram] 50 mg PO Q6H PRN #5 tab PRN Reason: Pain Instructions: Foot Sprain (ED) Forms: [employer] (Micronesian)
[2017-09-01 15:32] VITALS: BP 135/85; PULSE 91; O2SAT 99
--- NOTE | 2017-09-01 18:41 | RAD ---
PROCEDURE: Left Foot Radiographs. HISTORY: right foot pain, twisted ankle COMPARISON: None. FINDINGS: BONES: Normal. No fracture. JOINTS: Normal. SOFT TISSUES: Normal. OTHER FINDINGS: None. IMPRESSION: No acute findings related to/accounting for the clinical presentation. Please note: No preliminary report/ innterpretation of this examination provided by emergency department personnel.
== END 2017-09-01 15:34 | disposition home or self-care (01) ==
LOC: H.ER 13:55
DX: M79.672 Pain in left foot (principal); I10 Essential (primary) hypertension; Z79.82 Long term (current) use of aspirin

== ENCOUNTER 2017-10-30 12:07 | Emergency (ER) | payer MEDICAID ==
[2017-10-30 12:08] VITALS: BMI 31.2
[2017-10-30 12:12] VITALS: BP 161/103; PULSE 99; RESP 16; TEMP 97; O2SAT 99
--- NOTE | 2017-10-30 12:23 | ED PDOC ---
HPI: General Adult Time Seen by Provider: 10/30/17 12:14 Chief Complaint (Nursing): Cough, Cold, Congestion Chief Complaint (Provider): Flu-Like Symptoms History Per: Patient History/Exam Limitations: no limitations Onset/Duration Of Symptoms: Days (x3) Have you had recent travel within the past 21 days to any of the following countries: [place], [place], [place] or [place]?: No Current Symptoms Are (Timing): Still Present Additional Complaint(s): 52 year old male presents to ED with complaints of flu-like symptoms x3 days and has a past medical history of HTN. (+) productive cough, chest tightness, subjective fever, pleuritic chest pain, sore throat, headache, and body aches. ( -) sneezing. Denies receiving the flu vaccine this year. PCP: Dr. Blake Manuel Past Medical History Reviewed: Historical Data, Nursing Documentation, Vital Signs Vital Signs: Last Vital Signs Temp 97.0 F L 10/30/17 12:09 Pulse 99 H 10/30/17 12:09 Resp 16 10/30/17 12:09 BP 161/103 H 10/30/17 12:09 Pulse Ox 99 10/30/17 12:47 - Medical History PMH: Arthritis, HTN Denies: Alzheimer's Disease, Anemia, Anxiety, Asthma, Atrial Fibrillation, Bipolar Disorder, Bronchitis, CAD, Cardia Arrhythmia, CHF, COPD, Crohn's Disease , Dementia, Depression, Diverticulitis, Emphysema, Fractures, Gastritis, Gall Bladder Disease, HIV, Hypercholesterolemia, Hyperthyroidism, Hypothyroidism, Kidney Stones, Migraine, Mitral Valve Prolapse, Multiple Sclerosis, Osteoporosis , Pancreatitis, Paranoia, Parkinson's Disease, Peripheral Edema, Pneumonia, Post Traumatic Stress Disorder, Pulmonary Embolism, Chronic Kidney Disease, Rheumatoid Arthritis, Schizophrenia, Seizures, Sickle Cell Disease, Sexually Transmitted Disease, Sleep Apnea, TIA - Surgical History Surgical History: Denies: Appendectomy, CABG, Carotid Endarterectomy, Cholecystectomy, Coronary Stent, Pacemaker, Tonsillectomy - Family History Family History: States: Unknown Family Hx - Social History Current smoker - smoking cessation education provided: Yes Ex-Smoker (has not smoked in the last 12 months): No Drugs: Denies - Immunization History Hx Influenza Vaccination: No - Home Medications Home Medications: Ambulatory Orders Medication Instructions Recorded Aspirin [Ecotrin] 81 mg PO DAILY #30 06/05/17 Atorvastatin [Lipitor] 10 mg PO DAILY #30 tab 06/05/17 Lisinopril/Hydrochlorothiazide 1 each PO DAILY #30 tablet 06/05/17 [Lisinopril-Hctz 20-25 mg Tab] amLODIPine [Norvasc] 10 mg PO DAILY #30 tab 06/05/17 DiphenhydrAMINE [Benadryl] 25 mg PO ASDIR #1 packet 06/30/17 Prednisone 50 mg PO DAILY #5 tablet 06/30/17 traMADol [Ultram] 50 mg PO Q6H PRN #5 tab 09/01/17 Azithromycin [Zithromax] 250 mg PO DAILY #6 tab 09/18/17 Dextromethorphan Polistirex 30 mg PO BID #100 tennille.er.12h 10/30/17 [Delsym] Guaifenesin [Mucinex] 600 mg PO BID #14 tab.er.12h 10/30/17 Oseltamivir Phosphate [Tamiflu] 75 mg PO BID #10 capsule 10/30/17 - Allergies Allergies/Adverse Reactions: Allergies Allergy/AdvReac Type Severity Reaction Status Date / Time No Known Allergies Allergy Verified 09/18/17 08:35 Review of Systems ROS Statement: Except As Marked, All Systems Reviewed And Found Negative Constitutional: Positive for: Fever (subjective), Other ((+) body aches) ENT: Positive for: Throat Pain. Negative for: Nose Discharge Cardiovascular: Positive for: Chest Pain (chest tightness) Respiratory: Positive for: Cough (productive), Pleuritic Pain Neurological: Positive for: Headache Physical Exam - Reviewed Nursing Documentation Reviewed: Yes Vital Signs Reviewed: Yes - Physical Exam Appears: Positive for: Non-toxic, No Acute Distress Skin: Positive for: Normal Color, Warm, Dry Eye Exam: Positive for: Normal appearance ENT: Positive for: Normal ENT Inspection, Pharynx Is (clear), TM Is/Are (clear) . Negative for: Sinus Pain/Drainage, Pharyngeal Erythema Neck: Positive for: Normal Respiratory: Positive for: Normal Breath Sounds. Negative for: Respiratory Distress Lymphatic: Negative for: Adenopathy Neurologic/Psych: Positive for: Alert. Negative for: Oriented - ECG O2 Sat by Pulse Oximetry: 99 (RA) Pulse Ox Interpretation: Normal Medical Decision Making Medical Decision Makin Initial impression: viral illness Initial plan: * CXR 1245 CXR unchanged from previous: mild left atelectasis Patient is stable for discharge with Rx for Tamiflu. Scribe Attestation: Documented by Carmen Jacob, acting as a scribe for Magalie Khan PA-C. Provider Scribe Attestation: All medical record entries made by the Scribe were at my direction and personally dictated by me. I have reviewed the chart and agree that the record accurately reflects my personal performance of the history, physical exam, medical decision making, and the department course for this patient. I have also personally directed, reviewed, and agree with the discharge instructions and disposition. Disposition - Clinical Impression Clinical Impression: Influenza-like symptoms - Patient ED Disposition Is Patient to be Admitted: No Counseled Patient/Family Regarding: Need For Followup - Disposition Disposition: Routine/Home Disposition Time: 12:45 Condition: STABLE Prescriptions: Dextromethorphan Polistirex [Delsym] 30 mg PO BID #100 tennille.er.12h Guaifenesin [Mucinex] 600 mg PO BID #14 tab.er.12h Oseltamivir Phosphate [Tamiflu] 75 mg PO BID #10 capsule Instructions: Influenza (ED) Forms: [employer] (Belarusian)
--- NOTE | 2017-10-30 15:28 | RAD ---
HISTORY: cough COMPARISON: Chest radiographs 09/18/2017. TECHNIQUE: Chest PA and lateral FINDINGS: LUNGS: No active pulmonary disease. PLEURA: No significant pleural effusion identified. No pneumothorax apparent. CARDIOVASCULAR: Normal. OSSEOUS STRUCTURES: No significant abnormalities. VISUALIZED UPPER ABDOMEN: Normal. OTHER FINDINGS: None. IMPRESSION: No interval acute cardiopulmonary disease appreciated.
== END 2017-10-30 14:07 | disposition home or self-care (01) ==
LOC: H.ER 12:07
DX: R05 Cough (principal); R50.9 Fever, unspecified; B34.9 Viral infection, unspecified; F17.200 Nicotine dependence, unspecified, uncomplicated; I10 Essential (primary) hypertension; Z79.82 Long term (current) use of aspirin

== ENCOUNTER 2017-11-04 14:09 | Emergency (ER) | payer MEDICAID ==
[2017-11-04 14:09] VITALS: BMI 31.2
[2017-11-04 14:23] VITALS: TEMP 97.7
[2017-11-04] MEDS ORDERED: Albuterol-Ipratrop 3 mg / 0.5 (3 ml) UD ONE (14:49)
[2017-11-04] MEDS: Albuterol-Ipratrop 3 mg / 0.5 (3 ml) UD INH STA (14:52)
--- NOTE | 2017-11-04 15:11 | ED PDOC ---
HPI: CCC, URI, Sore Throat Time Seen by Provider: 11/04/17 14:23 Chief Complaint (Nursing): Chest Pain Chief Complaint (Provider): Cough, "I'm still sick" History Per: Patient History/Exam Limitations: no limitations Onset/Duration Of Symptoms: Days Current Symptoms Are (Timing): Still Present Location Of Pain: Diffuse Myalgias Sick Contacts (Context): None Associated Symptoms: Chills, Cough, Sputum. denies: Fever, Sore Throat Ear Symptoms: Bilateral: None Additional Complaint(s): Cough, yellow phlegm x 2 weeks. Chest pain only when coughing. Past Medical History Reviewed: Historical Data, Nursing Documentation, Vital Signs Vital Signs: Last Vital Signs Temp 97.7 F 11/04/17 14:20 Pulse 109 H 11/04/17 14:20 Resp 20 11/04/17 14:20 BP 168/108 H 11/04/17 14:20 Pulse Ox 97 11/04/17 14:20 - Medical History PMH: Arthritis, HTN Denies: Alzheimer's Disease, Anemia, Anxiety, Asthma, Atrial Fibrillation, Bipolar Disorder, Bronchitis, CAD, Cardia Arrhythmia, CHF, COPD, Crohn's Disease , Dementia, Depression, Diverticulitis, Emphysema, Fractures, Gastritis, Gall Bladder Disease, HIV, Hypercholesterolemia, Hyperthyroidism, Hypothyroidism, Kidney Stones, Migraine, Mitral Valve Prolapse, Multiple Sclerosis, Osteoporosis , Pancreatitis, Paranoia, Parkinson's Disease, Peripheral Edema, Pneumonia, Post Traumatic Stress Disorder, Pulmonary Embolism, Chronic Kidney Disease, Rheumatoid Arthritis, Schizophrenia, Seizures, Sickle Cell Disease, Sexually Transmitted Disease, Sleep Apnea, TIA - Surgical History Surgical History: Denies: Appendectomy, CABG, Carotid Endarterectomy, Cholecystectomy, Coronary Stent, Pacemaker, Tonsillectomy - Family History Family History: States: Unknown Family Hx - Living Arrangements Living Arrangements: Other - Social History Current smoker - smoking cessation education provided: No - Immunization History Hx Influenza Vaccination: No - Home Medications Home Medications: Ambulatory Orders Medication Instructions Recorded Aspirin [Ecotrin] 81 mg PO DAILY #30 06/05/17 Atorvastatin [Lipitor] 10 mg PO DAILY #30 tab 06/05/17 Lisinopril/Hydrochlorothiazide 1 each PO DAILY #30 tablet 06/05/17 [Lisinopril-Hctz 20-25 mg Tab] amLODIPine [Norvasc] 10 mg PO DAILY #30 tab 06/05/17 DiphenhydrAMINE [Benadryl] 25 mg PO ASDIR #1 packet 06/30/17 Prednisone 50 mg PO DAILY #5 tablet 06/30/17 traMADol [Ultram] 50 mg PO Q6H PRN #5 tab 09/01/17 Azithromycin [Zithromax] 250 mg PO DAILY #6 tab 09/18/17 Dextromethorphan Polistirex 30 mg PO BID #100 tennille.er.12h 10/30/17 [Delsym] Guaifenesin [Mucinex] 600 mg PO BID #14 tab.er.12h 10/30/17 Oseltamivir Phosphate [Tamiflu] 75 mg PO BID #10 capsule 10/30/17 Albuterol 0.083% [Albuterol 0.083% 2.5 mg IH QID PRN #20 11/04/17 Inhal Jamee (2.5 mg/3 ml) UD] Albuterol HFA [Ventolin HFA 90 1 puff IH BID PRN #1 unit 11/04/17 mcg/actuation (8 g)] Azithromycin [Zithromax] 250 mg PO DAILY #6 tab 11/04/17 - Allergies Allergies/Adverse Reactions: Allergies Allergy/AdvReac Type Severity Reaction Status Date / Time No Known Allergies Allergy Verified 09/18/17 08:35 Review of Systems ROS Statement: Except As Marked, All Systems Reviewed And Found Negative Constitutional: Positive for: Chills. Negative for: Fever Respiratory: Positive for: Cough. Negative for: Shortness of Breath Physical Exam - Reviewed Nursing Documentation Reviewed: Yes Vital Signs Reviewed: Yes - Physical Exam Appears: Positive for: Well, Non-toxic, No Acute Distress Head Exam: Positive for: ATRAUMATIC, NORMAL INSPECTION, NORMOCEPHALIC Skin: Positive for: Normal Color, Warm, DRY Eye Exam: Positive for: Normal appearance ENT: Positive for: Normal ENT Inspection Neck: Positive for: Normal, Painless ROM Cardiovascular/Chest: Positive for: Regular Rate, Rhythm Respiratory: Positive for: CNT, Normal Breath Sounds Gastrointestinal/Abdominal: Positive for: Normal Exam, Bowel Sounds, Soft Back: Positive for: Normal Inspection Extremity: Positive for: Normal ROM Neurologic/Psych: Positive for: Alert, Oriented - ECG O2 Sat by Pulse Oximetry: 97 Disposition - Clinical Impression Clinical Impression: URI (upper respiratory infection) - Patient ED Disposition Is Patient to be Admitted: No Counseled Patient/Family Regarding: Diagnosis, Need For Followup, Rx Given - Disposition Disposition: Routine/Home Disposition Time: 15:09 Condition: GOOD Prescriptions: Albuterol 0.083% [Albuterol 0.083% Inhal Jamee (2.5 mg/3 ml) UD] 2.5 mg IH QID PRN #20 PRN Reason: Shortness Of Breath Albuterol HFA [Ventolin HFA 90 mcg/actuation (8 g)] 1 puff IH BID PRN #1 unit PRN Reason: Wheezing Azithromycin [Zithromax] 250 mg PO DAILY #6 tab Instructions: Upper Respiratory Infection (ED)
[2017-11-04 15:29] VITALS: BP 160/90; PULSE 91; RESP 16
[2017-11-04 15:31] VITALS: O2SAT 97
--- NOTE | 2017-11-05 08:25 | CARD ---
APPROVED REPORT EKG Measurement Heart [id number] <Conclusion> Sinus tachycardia Possible Left atrial enlargement Borderline ECG
== END 2017-11-04 15:29 | disposition home or self-care (01) ==
LOC: H.ER 14:09
DX: J06.9 Acute upper respiratory infection, unspecified (principal); I10 Essential (primary) hypertension; Z79.82 Long term (current) use of aspirin

== ENCOUNTER 2018-02-24 21:55 | Observation (INO) | payer MEDICAID ==
[2018-02-24 21:56] VITALS: BMI 32.5
[2018-02-24 22:54] LABS: BASO # 0.2 K/uL (0.0-0.2); BASO % 1.5 % (0.0-2.0); EOS # 0.5 K/uL (0.0-0.7); EOS % 3.1 % (0.0-4.0); HEMOGLOBIN 13.6 g/dL (12.0-18.0); LYMPH # 2.9 K/uL (1.0-4.3); LYMPH % 18.4 % (20.0-40.0); MEAN CORPUSCULAR HEMOGLOBIN 30.9 pg (27.0-31.0); MEAN CORPUSCULAR HGB CONC 35.5 g/dL (33.0-37.0); MONO # 1.3 K/uL (0.0-0.8); MONO % 8.2 % (0.0-10.0); NEUT % 68.8 % (50.0-75.0); NRBC % 0.1 % (0.0-0.0); RBC 4.39 Mil/uL (4.40-5.90); RED CELL DISTRIBUTION WIDTH 13.1 % (11.5-14.5); WHITE BLOOD COUNT 15.9 K/uL (4.8-10.8)
--- NOTE | 2018-02-24 22:54 | ED PDOC ---
HPI: Chest Pain Time Seen by Provider: 02/24/18 22:16 Chief Complaint (Nursing): Chest Pain Chief Complaint (Provider): Chest pain History Per: Patient History/Exam Limitations: no limitations Onset/Duration Of Symptoms: Hrs Current Symptoms Are (Timing): Still Present Additional Complaint(s): 52yo male,with history of hypertension, dislipidemia, presents to ed with complaints of chest pain since this afternoon. Patient states he is 1 week post- op from a ventral hernia repair, performed by Dr. Rivera. Patient states he developed a "nagging" chest pain, mostly left sided; also reports associated diaphoresis and shortness of breath but denies any nausea or vomiting. Patient has no other medical complaints. Past Medical History Reviewed: Historical Data, Nursing Documentation, Vital Signs Vital Signs: Last Vital Signs Temp 97.5 F L 02/24/18 22:07 Pulse 96 H 02/25/18 02:46 Resp 18 02/25/18 02:13 BP 139/90 02/25/18 02:13 Pulse Ox 99 02/25/18 02:46 - Medical History PMH: Arthritis, HTN Denies: Atrial Fibrillation, CAD - Surgical History Surgical History: Endoscopy, Hernia Repair (ventral) - Family History Family History: States: Unknown Family Hx - Social History Current smoker - smoking cessation education provided: Yes - Immunization History Hx Influenza Vaccination: No - Home Medications Home Medications: Ambulatory Orders Medication Instructions Recorded Atorvastatin [Lipitor] 10 mg PO DAILY #30 tab 06/05/17 amLODIPine [Norvasc] 10 mg PO DAILY #30 tab 06/05/17 Omeprazole 40 mg PO DAILY 02/19/18 Hydrochlorothiazide [Microzide] 02/25/18 Lisinopril/Hydrochlorothiazide 20 mg PO DAILY 02/25/18 [Lisinopril-Hctz 20-25 mg Tab] - Allergies Allergies/Adverse Reactions: Allergies Allergy/AdvReac Type Severity Reaction Status Date / Time No Known Allergies Allergy Verified 09/18/17 08:35 Review of Systems ROS Statement: Except As Marked, All Systems Reviewed And Found Negative Constitutional: Positive for: Sweats. Negative for: Fever, Chills Cardiovascular: Positive for: Chest Pain Respiratory: Positive for: Shortness of Breath Gastrointestinal: Negative for: Nausea, Vomiting Physical Exam - Reviewed Nursing Documentation Reviewed: Yes Vital Signs Reviewed: Yes - Physical Exam Appears: Positive for: Non-toxic, No Acute Distress Head Exam: Positive for: ATRAUMATIC Skin: Positive for: Normal Color Eye Exam: Positive for: Normal appearance Neck: Positive for: Normal, Supple Cardiovascular/Chest: Positive for: Regular Rate, Rhythm Respiratory: Positive for: Normal Breath Sounds. Negative for: Respiratory Distress Gastrointestinal/Abdominal: Positive for: Normal Exam, Soft, Other ((+)healing ventral midline scar is noted that is C/D w/o surrounding erythema, warmth, or drainage). Negative for: Tenderness Back: Positive for: Normal Inspection Extremity: Positive for: Normal ROM. Negative for: Deformity, Swelling Neurologic/Psych: Positive for: Alert, Oriented. Negative for: Motor/Sensory Deficits - Laboratory Results Result Diagrams: 02/24/18 22:40 02/24/18 22:40 - ECG ECG: Positive for: Interpreted By Me, Viewed By Me ECG Rhythm: Positive for: Sinus Rhythm Rate: 96 (22:03) O2 Sat by Pulse Oximetry: 99 (RA) Pulse Ox Interpretation: Normal Medical Decision Making Medical Decision Making: Impression: 52yo male with chest pain in setting of known post-op status Plan: -- Labs -- EKG -- Chest x-ray -- CT Angio Chest (PE Protocol) Time: 3 --CTA chest FINDINGS: Pulmonary arteries: Unremarkable. No pulmonary embolism. Aorta: No acute findings. No thoracic aortic aneurysm. Lungs: Unremarkable. No mass. No consolidation. Pleural space: Unremarkable. No significant effusion. No pneumothorax. Heart: Coronary artery calcifications. No significant pericardial effusion. No evidence of RV dysfunction. Mediastinum: Small esophageal hiatal hernia. Bones/joints: Old healed right anterior rib fractures. No dislocation. Soft tissues: Unremarkable. Lymph nodes: Unremarkable. No enlarged lymph nodes. IMPRESSION: No pulmonary embolism. No acute findings. Time: 0130 --Labs: no significant abnormalities. --Upon provider reevaluation, patient is medically stable and requires no further treatment in the ED at this time. Patient will be admitted to hospital to Dr. Geiger for chest pain observation. Counseling was provided and all questions were answered regarding diagnosis. There is agreement to discharge plan. Return if symptoms persist or worsen. Clinical Impression: Chest pain Scribe Attestation: Documented by Racquel Remy and Filomena Monteiro, acting scribes for Luis Angel Aponte MD. Provider Attestation: All medical record entries made by the Scribe were at my direction and personally dictated by me. I have reviewed the chart and agree that the record accurately reflects my personal performance of the history, physical exam, medical decision making, and the department course for this patient. I have also personally directed, reviewed, and agree with the discharge instructions and disposition. Disposition - Clinical Impression Clinical Impression: Chest pain - Patient ED Disposition Is Patient to be Admitted: Yes Discussed With DrSis: Tello Aguilar Doctor Will See Patient In The: Hospital Counseled Patient/Family Regarding: Studies Performed, Diagnosis, Need For Followup - Disposition Disposition Time: 23:56 Condition: FAIR - Pt Status Changed To: Hospital Disposition Of: Observation
[2018-02-24 23:01] LABS: ALB/GLOB RATIO 1.2 (1.0-2.1); ALT/SGPT 57 U/L (21-72); AST/SGOT 42 U/L (17-59); BLOOD UREA NITROGEN 19 mg/dl (9-20); CALCIUM 8.6 mg/dL (8.4-10.2); GFR AFRICAN-AMERICAN > 60; GFR NON-AFRICAN AMERICAN > 60
[2018-02-24 23:02] LABS: PARTIAL THROMBOPLASTIN TIME 30.9 Seconds (25.6-37.1); PROTHROMBIN TIME 10.6 Seconds (9.8-13.1)
[2018-02-24] MEDS ORDERED: Sodium Chloride 0.9% 100 ML ONE (23:08)
[2018-02-24] MEDS ORDERED: Iodixanol 320 MG/ML 100 ML BOTTLE IV ONE (23:08)
[2018-02-24 23:25] LABS: BARBITURATES, UR NEGATIVE (NEGATIVE); BENZODIAZEPINES, UR NEGATIVE (NEGATIVE); OPIATES, UR NEGATIVE (NEGATIVE); PHENCYCLIDINE, UR NEGATIVE (NEGATIVE)
--- NOTE | 2018-02-25 07:34 | RAD ---
HISTORY: chest pain COMPARISON: Chest radiographs 10/30/2017. FINDINGS: LUNGS: No acute pulmonary disease. Trace fibrosis in the inferior left base laterally. PLEURA: No significant pleural effusion identified, no pneumothorax apparent. CARDIOVASCULAR: Normal. OSSEOUS STRUCTURES: No significant abnormalities. VISUALIZED UPPER ABDOMEN: Normal. OTHER FINDINGS: None. IMPRESSION: No acute cardiopulmonary disease is seen in the interval.
--- NOTE | 2018-02-25 08:16 | CARD ---
APPROVED REPORT EKG Measurement Heart [id number] <Conclusion> Normal sinus rhythm Possible Left atrial enlargement Borderline ECG
--- NOTE | 2018-02-25 08:39 | CT ---
PROCEDURE: CT Chest with contrast (Pulmonary Angiogram) HISTORY: chest pain r/o PE COMPARISON: None available. TECHNIQUE: Axial computed tomography images were obtained of the chest in the pulmonary arterial phase of enhancement. Coronal and sagittal reformatted images were created and reviewed. Maximum intensity projection (MIP) reconstructed images in the following planes: Axial only. Intravenous contrast dose: 95 cc Visipaque 320. Mean Hounsfield unit values in the main pulmonary artery: 231.87 Radiation dose: Total exam DLP = 467. 880 mGy-cm. This CT exam was performed using one or more of the following dose reduction techniques: Automated exposure control, adjustment of the mA and/or kV according to patient size, and/or use of iterative reconstruction technique. FINDINGS: PULMONARY ARTERIES: Unremarkable. No pulmonary embolism. AORTA: No acute findings. No thoracic aortic aneurysm. LUNGS: Unremarkable. No nodule, mass or pulmonary consolidation. PLEURAL SPACES: Unremarkable. No effusion or pneuomothorax. HEART: Unremarkable. No cardiomegaly. No significant pericardial effusion. LYMPH NODES: No lymphadenopathy. BONES, CHEST WALL: Unremarkable. No fracture or destructive lesion OTHER FINDINGS: Hepatomegaly although the liver is incompletely visualized. IMPRESSION: Unremarkable CT pulmonary angiogram. No pulmonary embolus. Additional benign and/or incidental findings described above. Concordant results (preliminary interpretation) provided by [employer]. Procedure Completed: 23:31 Preliminary ([facility]Rad) Report: Dictated and Authenticated: 23:53 Final Interpretation: 08:36 February 25, 2018.
[2018-02-25] MEDS: Enoxaparin 40 mg Syringe SC SCH (08:47)
[2018-02-25] MEDS: Pantoprazole 40 mg EC Tab PO SCH (08:47)
[2018-02-25] MEDS ORDERED: HYDROCHLOROTHIAZIDE PO SCH (09:00)
[2018-02-25] MEDS ORDERED: LISINOPRIL PO SCH (09:00)
[2018-02-25 09:19] LABS: HEMOGLOBIN 13.4 g/dL (12.0-18.0); MEAN CELL VOLUME 88.9 fl (80.0-94.0); MEAN CORPUSCULAR HEMOGLOBIN 30.4 pg (27.0-31.0); MEAN CORPUSCULAR HGB CONC 34.1 g/dL (33.0-37.0); RBC 4.42 Mil/uL (4.40-5.90); RED CELL DISTRIBUTION WIDTH 13.1 % (11.5-14.5)
[2018-02-25 09:51] LABS: BLOOD UREA NITROGEN 16 mg/dl (9-20); CALCIUM 9.2 mg/dL (8.4-10.2); GFR AFRICAN-AMERICAN > 60; GFR NON-AFRICAN AMERICAN > 60
[2018-02-25] MEDS ORDERED: Lactulose 10 gm/15 ml Syrup PO PRN (11:03)
[2018-02-25] MEDS: Metoprolol Succinate 50 mg XL Tab PO SCH (12:49)
[2018-02-25] MEDS: Amoxicillin-Clav 875-125 mg Tab PO SCH ×2 (12:49→22:02)
--- NOTE | 2018-02-25 13:17 | CP.PCM.HP ---
History of Present Illness - History of Present Illness History of Present Illness: CC: chest pain HPI: 52 y/o man w/ pmh of HTN presented to ED with complaints of chest pain. Patient reports chest pain started yesterday afternoon. Patient reports mid- sternal/left sided chest pain, sharp in nature, non-radiating, not relieved by anything, associated w/ mild dyspnea and diaphoresis. Patient reports he is 1 week post-op s/p open ventral hernia repair, performed by Dr. Rivera. Patient reports abdominal pain and the surgical site. Patient denies headaches, nausea , vomiting, diarrhea, dysuria, or fever. PMD: Dr. Mendez (in [place]) PMH: HTN meds: see med list Allergies: NKDA PSH: open ventral hernia repair 02/17/2018, laparascopic ventral hernia repair 2015 Fam: mother HTN age 67, father healthy age 90 SOC: smokes 2-10 cigarettes/day, denies alcohol, and drugs ROS: 12 points assessed and negative unless otherwise reported in HPI Present on Admission - Present on Admission Any Indicators Present on Admission: No History of DVT/PE: No History of Uncontrolled Diabetes: No Urinary Catheter: No Decubitus Ulcer Present: No Review of Systems - Constitutional Constitutional: absent: Chills, Fever, Headache - EENT Eyes: absent: Change in Vision - Cardiovascular Cardiovascular: As Per HPI, Chest Pain, Dyspnea - Respiratory Respiratory: As Per HPI, Dyspnea - Gastrointestinal Gastrointestinal: Abdominal Pain. absent: Diarrhea, Nausea, Vomiting - Genitourinary Genitourinary: absent: Dysuria - Integumentary Integumentary: absent: Rash Past Patient History - Infectious Disease Hx of Infectious Diseases: None - Past Medical History & Family History Past Medical History?: Yes - Past Social History Smoking Status: Current Some Days Smoker - CARDIAC Hx Atrial Fibrillation: No Hx Hypercholesterolemia: Yes Hx Hypertension: Yes - PULMONARY Hx Bronchitis: Yes - MUSCULOSKELETAL/RHEUMATOLOGICAL Hx Arthritis: Yes Hx Falls: No - PSYCHIATRIC Hx Substance Use: No - ANESTHESIA Hx Anesthesia: Yes Hx Anesthesia Reactions: No Meds Allergies/Adverse Reactions: Allergies Allergy/AdvReac Type Severity Reaction Status Date / Time No Known Allergies Allergy Verified 09/18/17 08:35 Physical Exam - Constitutional Appears: Non-toxic, No Acute Distress - Head Exam Head Exam: ATRAUMATIC, NORMAL INSPECTION, NORMOCEPHALIC - Eye Exam Eye Exam: Normal appearance - ENT Exam ENT Exam: Mucous Membranes Moist - Neck Exam Neck exam: Positive for: Full Rom. Negative for: Tenderness - Respiratory Exam Respiratory Exam: Clear to Auscultation Bilateral. absent: Accessory Muscle Use , Decreased Breath Sounds, Rales, Rhonchi, Wheezes, Respiratory Distress - Cardiovascular Exam Cardiovascular Exam: REGULAR RHYTHM. absent: Tachycardia - GI/Abdominal Exam GI & Abdominal Exam: Normal Bowel Sounds, Soft. absent: Distended, Tenderness Additional comments: healing incision s/p open ventral hernia repair, jazmin in place, no discharge - Extremities Exam Extremities exam: Negative for: calf tenderness, pedal edema, tenderness - Neurological Exam Neurological exam: Alert, Normal Gait, Oriented x3 - Skin Skin Exam: Dry, Intact, Normal Color, Warm Results - Vital Signs Recent Vital Signs: Last Vital Signs Temp 98.3 F 02/25/18 12:00 Pulse 90 02/25/18 12:49 Resp 18 02/25/18 12:00 BP 105/67 02/25/18 12:49 Pulse Ox 98 02/25/18 12:00 - Labs Result Diagrams: 02/25/18 09:00 02/25/18 09:15 Labs: Laboratory Results - last 24 hr 02/24/18 02/24/18 02/24/18 22:40 22:40 22:40 WBC 15.9 H RBC 4.39 L Hgb 13.6 D Hct 38.2 MCV 87.0 MCH 30.9 MCHC 35.5 RDW 13.1 Plt Count 422 H MPV 7.0 L Neut % (Auto) 68.8 Lymph % (Auto) 18.4 L [place] % (Auto) 8.2 Eos % (Auto) 3.1 Baso % (Auto) 1.5 Neut # (Auto) 11.0 H Lymph # (Auto) 2.9 [place] # (Auto) 1.3 H Eos # (Auto) 0.5 Baso # (Auto) 0.2 PT 10.6 INR 1.0 APTT 30.9 D-Dimer, Quantitative 479 H Sodium 131 L Potassium 4.0 Chloride 91 L Carbon Dioxide 26 Anion Gap 18 BUN 19 Creatinine 1.0 Est GFR ( Amer) > 60 Est GFR (Non-Af Amer) > 60 Random Glucose 108 Calcium 8.6 Total Bilirubin 0.5 AST 42 ALT 57 Alkaline Phosphatase 80 Troponin I < 0.0120 Total Protein 7.3 Albumin 4.0 Globulin 3.3 Albumin/Globulin Ratio 1.2 Triglycerides Cholesterol LDL Cholesterol Direct HDL Cholesterol TSH 3rd Generation Urine Opiates Screen Urine Methadone Screen Ur Barbiturates Screen Ur Phencyclidine Scrn Ur Amphetamines Screen U Benzodiazepines Scrn U Oth Cocaine Metabols U Cannabinoids Screen 02/24/18 02/25/18 02/25/18 22:40 06:15 08:00 WBC RBC Hgb Hct MCV MCH MCHC RDW Plt Count MPV Neut % (Auto) Lymph % (Auto) [place] % (Auto) Eos % (Auto) Baso % (Auto) Neut # (Auto) Lymph # (Auto) [place] # (Auto) Eos # (Auto) Baso # (Auto) PT INR APTT D-Dimer, Quantitative Sodium Potassium Chloride Carbon Dioxide Anion Gap BUN Creatinine Est GFR ( Amer) Est GFR (Non-Af Amer) Random Glucose Calcium Total Bilirubin AST ALT Alkaline Phosphatase Troponin I < 0.0120 Total Protein Albumin Globulin Albumin/Globulin Ratio Triglycerides 262 H Cholesterol 190 LDL Cholesterol Direct 119 HDL Cholesterol 26 L TSH 3rd Generation 3.41 Urine Opiates Screen Negative Urine Methadone Screen Negative Ur Barbiturates Screen Negative Ur Phencyclidine Scrn Negative Ur Amphetamines Screen Negative U Benzodiazepines Scrn Negative U Oth Cocaine Metabols Negative U Cannabinoids Screen Negative 02/25/18 02/25/18 09:00 09:15 WBC 14.0 H RBC 4.42 Hgb 13.4 Hct 39.3 MCV 88.9 MCH 30.4 MCHC 34.1 RDW 13.1 Plt Count 415 H MPV Neut % (Auto) Lymph % (Auto) [place] % (Auto) Eos % (Auto) Baso % (Auto) Neut # (Auto) Lymph # (Auto) [place] # (Auto) Eos # (Auto) Baso # (Auto) PT INR APTT D-Dimer, Quantitative Sodium 137 Potassium 4.1 Chloride 96 L Carbon Dioxide 24 Anion Gap 21 H BUN 16 Creatinine 0.9 Est GFR ( Amer) > 60 Est GFR (Non-Af Amer) > 60 Random Glucose 106 Calcium 9.2 Total Bilirubin AST ALT Alkaline Phosphatase Troponin I Total Protein Albumin Globulin Albumin/Globulin Ratio Triglycerides Cholesterol LDL Cholesterol Direct HDL Cholesterol TSH 3rd Generation Urine Opiates Screen Urine Methadone Screen Ur Barbiturates Screen Ur Phencyclidine Scrn Ur Amphetamines Screen U Benzodiazepines Scrn U Oth Cocaine Metabols U Cannabinoids Screen Assessment & Plan (1) Chest pain Status: Acute (2) Hypertension Status: Chronic - Assessment and Plan (Free Text) Plan: c/w present management afebrile, nontachycardic, normotensive cardiology consult ordered EKG: NSR, possible left atrial enlargement, no acute ST elevation/depression CXR: no active cardiopulmonary disease process CT chest: no pulmonary embolism CBC: 14.0>13.4/39.3<415 CMP: 137/4.1, 96/24, 16/0.9, glucose 106 troponin negative x2 TSH 3.41 lipid profile: trig 262, chol 190, LDL 119, HDL 26 c/w atorvastatin 20 mg PO daily start augmentin 1 tab PO Q12h start valsartan 160 mg PO daily start metoprolol succinate 50 mg PO daily f/u echo f/u 3rd troponin f/u HbA1c prophylactic measures: DVT lovenox 40 mg SC daily monitor for acute changes
[2018-02-25] MEDS: Lactobacillus Acidophilus 500 MU Cap PO SCH (17:07)
--- NOTE | 2018-02-25 19:45 | CP.PCM.CON ---
History of Present Illness - History of Present Illness History of Present Illness: I was asked to evaluate patient by Dr Aguilar. Patient is a 52 year old male with PMH HTN, hypercholesterolemia who presents with chest pain. He had reapir of a ventral hernia about one week ago and has noted substernal chest discomfort while at rest. Symptoms occurred while lying down. He denied associated dyspnea. The patient presented for further evaluation. Review of Systems - Constitutional Constitutional: absent: As Per HPI, Anorexia, Chills, Daytime Sleepiness, Excessive Sweating, Fatigue, Fever, Frequent Falls, Headache, Increased Appetite , Lethargy, Malaise, Night Sweats, Snoring, Sleep Apnea, Weight Gain, Weight Loss, Weakness, Other - EENT Eyes: absent: As Per HPI, Blind Spots, Blurred Vision, Change in Vision, Decreased Night Vision, Diplopia, Discharge, Dry Eye, Exophthalmos, Floaters, Irritation, Itchy Eyes, Loss of Peripheral Vision, Pain, Photophobia, Requires Corrective Lenses, Sees Flashes, Spots in Vision, Tunnel Vision, Other Visual Disturbances, Loss of Vision, Other Ears: absent: As Per HPI, Decreased Hearing, Ear Discharge, Ear Pain, Tinnitus, Abnormal Hearing, Disequilibrium, Dizziness, Other Nose/Mouth/Throat: absent: As Per HPI, Epistaxis, Nasal Congestion, Nasal Discharge, Nasal Obstruction, Nasal Trauma, Nose Pain, Post Nasal Drip, Sinus Pain, Sinus Pressure, Bleeding Gums, Change in Voice, Dental Pain, Dry Mouth, Dysphagia, Halitosis, Hoarsness, Lip Swelling, Mouth Lesions, Mouth Pain, Odynophagia, Sore Throat, Throat Swelling, Tongue Swelling, Facial Pain, Neck Pain, Neck Mass, Other - Cardiovascular Cardiovascular: Chest Pain - Respiratory Respiratory: absent: As Per HPI, Cough, Dyspnea, Hemoptysis, Dyspnea on Exertion , Wheezing, Snoring, Stridor, Pain on Inspiration, Chest Congestion, Excessive Mucous Production, Change in Mucous Color, Pain with Coughing, Other - Gastrointestinal Gastrointestinal: absent: As Per HPI, Abdominal Pain, Belching, Bloating, Change in Bowel Habits, Change in Stool Character, Coffee Ground Emesis, Constipation, Cramping, Diarrhea, Dyspepsia, Dysphagia, Early Satiety, Excessive Flatus, Fecal Incontinence, Heartburn, Hematemesis, Hematochezia, Loose Stools, Melena, Nausea, Odynophagia, Temesmus, Vomiting, Other - Genitourinary Genitourinary: absent: As Per HPI, Change in Urinary Stream, Difficulty Urinating, Dysuria, Flank Pain, Hematuria, Pyuria, Nocturia, Urinary Incontinence, Urinary Frequency, Urinary Hesitance, Urinary Urgency, Voiding Freq/Small Amts, Freq UTI, Hx Renal/Bladder Calculi, Hx /Renal Surgery, Bladder Distension, Other - Musculoskeletal Musculoskeletal: absent: As Per HPI, Abnormal Gait, Arthralgias, Atrophy, Back Pain, Deformity, Joint Swelling, Limited Range of Motion, Loss of Height, Muscle Cramps, Muscle Weakness, Myalgias, Neck Pain, Numbness, Radiating Pain into Limb, Stiffness, Tingling, Other - Integumentary Integumentary: absent: As Per HPI, Acne, Alopecia, Bleeding Lesions, Change in Hair, Change in Nails, Change in Pigmentation, Changing Lesions, Dry Skin, Erythema, Furuncle, Hirsutism, Lesions, New Lesions, Non-Healing Lesions, Photosensitivity, Pruritus, Rash, Skin Pain, Skin Ulcer, Sores, Striae, Swelling , Unusual Bruising, Wounds, Jaundice, Other - Neurological Neurological: absent: As Per HPI, Abnormal Gait, Abnormal Hearing, Abnormal Movements, Abnormal Speech, Behavioral Changes, Burning Sensations, Confusion, Convulsions, Disequilibrium, Dizziness, Numbness, Focal Weakness, Frequent Falls , Headaches, Lack of Coordination, Loss of Vision, Memory Loss, Paresthesias, Radicular Pain, Restless Legs, Sensory Deficit, Syncope, Tingling, Tremor, Vertigo, Weakness, Other Visual Disturbances, Other - Psychiatric Psychiatric: absent: As Per HPI, Abnormal Sleep Pattern, Anhedonia, Anxiety, Auditory Hallucinations, Behavioral Changes, Change in Appetite, Change in Libido, Confusion, Depression, Difficulty Concentrating, Hallucinations, Homicidal Ideation, Hopelessness, Irritability, Memory Loss, Mood Swings, Panic Attacks, Paranoia, Suicidal Ideation, Visual Hallucinations, Tactile Hallucinations, Other - Endocrine Endocrine: absent: As Per HPI, Change in Body Appearance, Change in Libido, Cold Intolorance, Deepening of Voice, Excessive Sweating, Fatigue, Flushing, Heat Intolorance, Increase in Ring/Shoe/Hat Size, Palpitations, Polydipsia, Polyphagia, Polyuria, Other - Hematologic/Lymphatic Hematologic: absent: As Per HPI, Easy Bleeding, Easy Bruising, Lymphadenopathy, Other Past Patient History - Infectious Disease Hx of Infectious Diseases: None - Past Medical History & Family History Past Medical History?: Yes - Past Social History Smoking Status: Current Some Days Smoker - CARDIAC Hx Atrial Fibrillation: No Hx Hypercholesterolemia: Yes Hx Hypertension: Yes - PULMONARY Hx Bronchitis: Yes - MUSCULOSKELETAL/RHEUMATOLOGICAL Hx Arthritis: Yes Hx Falls: No - PSYCHIATRIC Hx Substance Use: No - ANESTHESIA Hx Anesthesia: Yes Hx Anesthesia Reactions: No Meds Allergies/Adverse Reactions: Allergies Allergy/AdvReac Type Severity Reaction Status Date / Time No Known Allergies Allergy Verified 09/18/17 08:35 - Medications Medications: Current Medications Amoxicillin/Clavulanate Potassium (Augmentin 875 Mg-125 Mg Tab) 1 tab PO Q12 [facility] PRN Reason: Protocol Last Admin: 02/25/18 12:49 Dose: 1 tab Atorvastatin Calcium (Lipitor) 20 mg PO DAILY [facility] Last Admin: 02/25/18 12:49 Dose: 20 mg Enoxaparin Sodium (Lovenox) 40 mg SC DAILY [facility] PRN Reason: Protocol Last Admin: 02/25/18 08:47 Dose: 40 mg Lactobacillus Acidophilus (Bacid Acidophilus) 1 cap PO BID [facility] Last Admin: 02/25/18 17:07 Dose: Not Given Lactulose (Enulose) 10 gm PO DAILY PRN PRN Reason: Constipation Metoprolol Succinate (Toprol Xl) 50 mg PO DAILY [facility] Last Admin: 02/25/18 12:49 Dose: 50 mg Pantoprazole Sodium (Protonix Ec Tab) 40 mg PO DAILY [facility] Last Admin: 02/25/18 08:47 Dose: 40 mg Valsartan (Diovan) 160 mg PO DAILY [facility] Last Admin: 02/25/18 12:48 Dose: 160 mg Physical Exam - Constitutional Appears: Non-toxic - Head Exam Head Exam: NORMAL INSPECTION - Eye Exam Eye Exam: Normal appearance - ENT Exam ENT Exam: Mucous Membranes Moist - Neck Exam Neck exam: Positive for: Normal Inspection - Respiratory Exam Respiratory Exam: NORMAL BREATHING PATTERN - Cardiovascular Exam Cardiovascular Exam: REGULAR RHYTHM - GI/Abdominal Exam GI & Abdominal Exam: Normal Bowel Sounds - Rectal Exam Rectal Exam: Deferred - Extremities Exam Extremities exam: Negative for: pedal edema - Back Exam Back exam: NORMAL INSPECTION - Neurological Exam Neurological exam: Alert, Oriented x3 - Psychiatric Exam Psychiatric exam: Normal Affect - Skin Skin Exam: Normal Color Results - Vital Signs Recent Vital Signs: Last Vital Signs Temp 98 F 02/25/18 15:59 Pulse 79 02/25/18 15:59 Resp 20 02/25/18 15:59 BP 143/73 02/25/18 15:59 Pulse Ox 94 L 02/25/18 15:59 - Labs Result Diagrams: 02/25/18 09:00 02/25/18 09:15 Labs: Laboratory Results - last 24 hr 02/24/18 02/24/18 02/24/18 22:40 22:40 22:40 WBC 15.9 H RBC 4.39 L Hgb 13.6 D Hct 38.2 MCV 87.0 MCH 30.9 MCHC 35.5 RDW 13.1 Plt Count 422 H MPV 7.0 L Neut % (Auto) 68.8 Lymph % (Auto) 18.4 L Josephine % (Auto) 8.2 Eos % (Auto) 3.1 Baso % (Auto) 1.5 Neut # (Auto) 11.0 H Lymph # (Auto) 2.9 Josephine # (Auto) 1.3 H Eos # (Auto) 0.5 Baso # (Auto) 0.2 PT 10.6 INR 1.0 APTT 30.9 D-Dimer, Quantitative 479 H Sodium 131 L Potassium 4.0 Chloride 91 L Carbon Dioxide 26 Anion Gap 18 BUN 19 Creatinine 1.0 Est GFR ( Amer) > 60 Est GFR (Non-Af Amer) > 60 Random Glucose 108 Calcium 8.6 Total Bilirubin 0.5 AST 42 ALT 57 Alkaline Phosphatase 80 Troponin I < 0.0120 Total Protein 7.3 Albumin 4.0 Globulin 3.3 Albumin/Globulin Ratio 1.2 Triglycerides Cholesterol LDL Cholesterol Direct HDL Cholesterol TSH 3rd Generation Urine Opiates Screen Urine Methadone Screen Ur Barbiturates Screen Ur Phencyclidine Scrn Ur Amphetamines Screen U Benzodiazepines Scrn U Oth Cocaine Metabols U Cannabinoids Screen 02/24/18 02/25/18 02/25/18 22:40 06:15 08:00 WBC RBC Hgb Hct MCV MCH MCHC RDW Plt Count MPV Neut % (Auto) Lymph % (Auto) Josephine % (Auto) Eos % (Auto) Baso % (Auto) Neut # (Auto) Lymph # (Auto) Josephine # (Auto) Eos # (Auto) Baso # (Auto) PT INR APTT D-Dimer, Quantitative Sodium Potassium Chloride Carbon Dioxide Anion Gap BUN Creatinine Est GFR ( Amer) Est GFR (Non-Af Amer) Random Glucose Calcium Total Bilirubin AST ALT Alkaline Phosphatase Troponin I < 0.0120 Total Protein Albumin Globulin Albumin/Globulin Ratio Triglycerides 262 H Cholesterol 190 LDL Cholesterol Direct 119 HDL Cholesterol 26 L TSH 3rd Generation 3.41 Urine Opiates Screen Negative Urine Methadone Screen Negative Ur Barbiturates Screen Negative Ur Phencyclidine Scrn Negative Ur Amphetamines Screen Negative U Benzodiazepines Scrn Negative U Oth Cocaine Metabols Negative U Cannabinoids Screen Negative 02/25/18 02/25/18 02/25/18 09:00 09:15 15:13 WBC 14.0 H RBC 4.42 Hgb 13.4 Hct 39.3 MCV 88.9 MCH 30.4 MCHC 34.1 RDW 13.1 Plt Count 415 H MPV Neut % (Auto) Lymph % (Auto) Josephine % (Auto) Eos % (Auto) Baso % (Auto) Neut # (Auto) Lymph # (Auto) Josephine # (Auto) Eos # (Auto) Baso # (Auto) PT INR APTT D-Dimer, Quantitative Sodium 137 Potassium 4.1 Chloride 96 L Carbon Dioxide 24 Anion Gap 21 H BUN 16 Creatinine 0.9 Est GFR ( Amer) > 60 Est GFR (Non-Af Amer) > 60 Random Glucose 106 Calcium 9.2 Total Bilirubin AST ALT Alkaline Phosphatase Troponin I < 0.0120 Total Protein Albumin Globulin Albumin/Globulin Ratio Triglycerides Cholesterol LDL Cholesterol Direct HDL Cholesterol TSH 3rd Generation Urine Opiates Screen Urine Methadone Screen Ur Barbiturates Screen Ur Phencyclidine Scrn Ur Amphetamines Screen U Benzodiazepines Scrn U Oth Cocaine Metabols U Cannabinoids Screen - EKG Data EKG Interpreted by: Myself EKG shows normal: Sinus rhythm Assessment & Plan (1) Chest pain Assessment and Plan: patient has ruled out for myocardial infarction. I reviewed the echocardiogram with the patient. The left ventricular function is normal and there are no regional wall motion abnormalities. He has cardiac risk factors and I have discussed risk factor modification. I recommend medical therapy with ASA. statin. Will schedule outpatient stress test. Status: Acute (2) Hypertension Assessment and Plan: blood pressure control. Status: Chronic
[2018-02-26 08:12] VITALS: PULSE 77
[2018-02-26] MEDS: Amoxicillin-Clav 875-125 mg Tab PO SCH (09:14)
[2018-02-26] MEDS: Pantoprazole 40 mg EC Tab PO SCH (09:14)
[2018-02-26] MEDS: Metoprolol Succinate 50 mg XL Tab PO SCH (09:15)
[2018-02-26] MEDS: Enoxaparin 40 mg Syringe SC SCH (09:16)
--- NOTE | 2018-02-26 09:28 | CARD ---
APPROVED REPORT EXAM: Two-dimensional and M-mode echocardiogram with Doppler and color Doppler. Other Information Quality : GoodRhythm : NSR INDICATION Chest Pain 2D DIMENSIONS IVSd1.57 (0.7-1.1cm)LVDd2.86 (3.9-5.9cm) LVOT Diameter2.45 (1.8-2.4cm)PWd1.82 (0.7-1.1cm) IVSs1.60 (0.8-1.2cm)LVDs2.15 (2.5-4.0cm) FS (%) 24.9 %PWs1.84 (0.8-1.2cm) M-Mode DIMENSIONS Left Atrium (MM)4.33 (2.5-4.0cm)IVSd1.62 (0.7-1.1cm) Aortic Root3.21 (2.2-3.7cm)LVDd5.36 (4.0-5.6cm) Aortic Cusp Exc.2.32 (1.5-2.0cm)PWd0.93 (0.7-1.1cm) IVSs1.65 cmFS (%) 38 % LVDs3.31 (2.0-3.8cm)PWs1.92 cm Mitral Valve MV E Gibksmpz27.1cm/sMV DECEL [id number] A Gctnzgby82.6cm/s MV LUG73kiV/A ratio1.2MVA (PHT)3.85cm2 TDI Lateral E' Peak V14.34cm/sMedial E' Peak V11.57cm/sE/Lateral E'4.7 E/Medial E'5.8 LEFT VENTRICLE The left ventricle is normal size. There is normal left ventricular wall thickness. The left ventricular function is normal. The left ventricular ejection fraction is within the normal range. The Ejection Fraction is 55-60%. There is normal LV segmental wall motion. The left ventricular diastolic function is normal. RIGHT VENTRICLE The right ventricle is normal size. There is normal right ventricular wall thickness. The right ventricular systolic function is normal. ATRIA The left atrium size is normal. The right atrium size is normal. AORTIC VALVE The aortic valve is normal in structure. No aortic regurgitation is present. There is no aortic valvular stenosis. MITRAL VALVE The mitral valve is normal in structure. There is no mitral valve stenosis. There is no mitral valve regurgitation noted. TRICUSPID VALVE The tricuspid valve is normal in structure. There is no tricuspid valve regurgitation noted. There is no tricuspid valve stenosis. PULMONIC VALVE The pulmonary valve is normal in structure. There is no pulmonic valvular regurgitation. GREAT VESSELS The aortic root is normal in size. The IVC is normal in size and collapses >50% with inspiration. PERICARDIAL EFFUSION The pericardium appears normal. <Conclusion> The left ventricle is normal size. The left ventricular function is normal. The left ventricular ejection fraction is within the normal range. The Ejection Fraction is 55-60%.
[2018-02-26] MEDS: Lactobacillus Acidophilus 500 MU Cap PO SCH (09:47)
[2018-02-26 11:57] VITALS: RESP 20
[2018-02-26 12:04] VITALS: BP 116/78; TEMP 98.3; O2SAT 98
--- NOTE | 2018-02-26 12:38 | CP.PCM.DIS ---
Provider - Provider Date of Admission: 02/24/18 23:56 Attending physician: Tello Aguilar MD Time Spent in preparation of Discharge (in minutes): 15 Diagnosis - Discharge Diagnosis (1) Chest pain Status: Acute (2) Hypertension Status: Chronic Hospital Course - Lab Results Lab Results: Most Recent Lab Values WBC 14.0 K/uL (4.8-10.8) H 02/25/18 09:00 RBC 4.42 Mil/uL (4.40-5.90) 02/25/18 09:00 Hgb 13.4 g/dL (12.0-18.0) 02/25/18 09:00 Hct 39.3 % (35.0-51.0) 02/25/18 09:00 MCV 88.9 fl (80.0-94.0) 02/25/18 09:00 MCH 30.4 pg (27.0-31.0) 02/25/18 09:00 MCHC 34.1 g/dL (33.0-37.0) 02/25/18 09:00 RDW 13.1 % (11.5-14.5) 02/25/18 09:00 Plt Count 415 K/uL (130-400) H 02/25/18 09:00 MPV 7.0 fl (7.2-11.7) L 02/24/18 22:40 Neut % (Auto) 68.8 % (50.0-75.0) 02/24/18 22:40 Lymph % (Auto) 18.4 % (20.0-40.0) L 02/24/18 22:40 Ashe % (Auto) 8.2 % (0.0-10.0) 02/24/18 22:40 Eos % (Auto) 3.1 % (0.0-4.0) 02/24/18 22:40 Baso % (Auto) 1.5 % (0.0-2.0) 02/24/18 22:40 Neut # (Auto) 11.0 K/uL (1.8-7.0) H 02/24/18 22:40 Lymph # (Auto) 2.9 K/uL (1.0-4.3) 02/24/18 22:40 Ashe # (Auto) 1.3 K/uL (0.0-0.8) H 02/24/18 22:40 Eos # (Auto) 0.5 K/uL (0.0-0.7) 02/24/18 22:40 Baso # (Auto) 0.2 K/uL (0.0-0.2) 02/24/18 22:40 PT 10.6 Seconds (9.8-13.1) 02/24/18 22:40 INR 1.0 (0.9-1.2) 02/24/18 22:40 APTT 30.9 Seconds (25.6-37.1) 02/24/18 22:40 D-Dimer, Quantitative 479 ng/mlDDU (0-230) H 02/24/18 22:40 Sodium 137 mmol/l (132-148) 02/25/18 09:15 Potassium 4.1 MMOL/L (3.6-5.0) 02/25/18 09:15 Chloride 96 mmol/L (98-107) L 02/25/18 09:15 Carbon Dioxide 24 mmol/L (22-30) 02/25/18 09:15 Anion Gap 21 (10-20) H 02/25/18 09:15 BUN 16 mg/dl (9-20) 02/25/18 09:15 Creatinine 0.9 mg/dl (0.8-1.5) 02/25/18 09:15 Est GFR ( Amer) > 60 02/25/18 09:15 Est GFR (Non-Af Amer) > 60 02/25/18 09:15 Random Glucose 106 mg/dL (75-110) 02/25/18 09:15 Hemoglobin A1c 5.9 % (4.2-6.5) 02/26/18 05:50 Calcium 9.2 mg/dL (8.4-10.2) 02/25/18 09:15 Total Bilirubin 0.5 mg/dl (0.2-1.3) 02/24/18 22:40 AST 42 U/L (17-59) 02/24/18 22:40 ALT 57 U/L (21-72) 02/24/18 22:40 Alkaline Phosphatase 80 U/L (38-126) 02/24/18 22:40 Troponin I < 0.0120 ng/mL (0.00-0.120) 02/25/18 15:13 Total Protein 7.3 G/DL (6.3-8.2) 02/24/18 22:40 Albumin 4.0 g/dL (3.5-5.0) 02/24/18 22:40 Globulin 3.3 gm/dL (2.2-3.9) 02/24/18 22:40 Albumin/Globulin Ratio 1.2 (1.0-2.1) 02/24/18 22:40 Triglycerides 262 mg/DL (0-149) H 02/25/18 06:15 Cholesterol 190 mg/dL (0-199) 02/25/18 06:15 LDL Cholesterol Direct 119 mg/dL (0-129) 02/25/18 06:15 HDL Cholesterol 26 MG/DL (30-70) L 02/25/18 06:15 TSH 3rd Generation 3.41 mIU/ML (0.46-4.68) 02/25/18 06:15 Urine Opiates Screen Negative (NEGATIVE) 02/24/18 22:40 Urine Methadone Screen Negative (NEGATIVE) 02/24/18 22:40 Ur Barbiturates Screen Negative (NEGATIVE) 02/24/18 22:40 Ur Phencyclidine Scrn Negative (NEGATIVE) 02/24/18 22:40 Ur Amphetamines Screen Negative (NEGATIVE) 02/24/18 22:40 U Benzodiazepines Scrn Negative (NEGATIVE) 02/24/18 22:40 U Oth Cocaine Metabols Negative (NEGATIVE) 02/24/18 22:40 U Cannabinoids Screen Negative (NEGATIVE) 02/24/18 22:40 - Hospital Course Hospital Course: 52 y/o man w/ pmh of HTN presented to ED with complaints of chest pain. Patient seen and evaluated in the ED. Patient admitted for rule out ACS. Patient seen by cardiology. Patient's EKG, CXR, chest CT, and Echo showed no acute findings. Patient's WBC has decreased w/ augmentin PO. ACS has been ruled out and patient cleared by cardiology. Patient reports feeling better. The patient has been seen, examined, and deemed medically fit for discharge home. The patient is to follow up w/ PMD in 1 week and patient is to follow up w/ credit card clerk, Dr. Adler in 1 week. The patient has been given an updated medication list and prescriptions. The patient is to complete course of augmentin Q12 PO for 5 more days. Discharge Exam - Head Exam Head Exam: NORMAL INSPECTION - Eye Exam Eye Exam: Normal appearance - ENT Exam ENT Exam: Mucous Membranes Moist - Neck Exam Neck exam: Full Rom - Respiratory Exam Respiratory Exam: Clear to PA & Lateral. absent: Accessory Muscle Use, Decreased Breath Sounds, Rales, Rhonchi, Wheezes, Respiratory Distress - Cardiovascular Exam Cardiovascular Exam: REGULAR RHYTHM. absent: Tachycardia - GI/Abdominal Exam GI & Abdominal Exam: Normal Bowel Sounds, Soft, Tenderness. absent: Distended Additional comments: healing incision s/p open ventral hernia repair, jazmin in place, no discharge - Extremities Exam Extremities exam: normal inspection - Neurological Exam Neurological exam: Alert, Normal Gait, Oriented x3 - Skin Skin Exam: Dry, Normal Color, Warm Discharge Plan - Discharge Medications Prescriptions: Amoxicillin/Clavulanate [Augmentin 875 MG-125 MG Tab] 1 tab PO Q12 #10 tab Atorvastatin [Lipitor] 20 mg PO DAILY #30 tab Lactobacillus Acidophilus [Bacid Acidophilus] 1 cap PO BID #10 cap Metoprolol Succinate [Toprol XL] 50 mg PO DAILY #30 tab Valsartan [Diovan] 160 mg PO DAILY #30 tab - Follow Up Plan Condition: FAIR Disposition: HOME/ ROUTINE Instructions: Chest Pain (DC) Additional Instructions: pt. cleared for discharge to home today by and Rx for all meds sent to [facility] pt. instructed to f/u with for outpatient stress test f/u with and outpatient Referrals: Tello Aguilar MD [Staff Provider] - Harsh Adler MD [Medical Doctor] -
== END 2018-02-26 15:00 | disposition home or self-care (01) ==
LOC: H.ER 21:55 → H.ERHOLD 23:56 → H.TEL 02-25 03:17
PROVIDERS: ADMIT Family Medicine; ATTEND Family Medicine
DX: R07.9 Chest pain, unspecified (principal); I10 Essential (primary) hypertension; E78.00 Pure hypercholesterolemia, unspecified; F17.200 Nicotine dependence, unspecified, uncomplicated; M19.90 Unspecified osteoarthritis, unspecified site
CPT/HCPCS: 36415; 71045; 71275; 80048; 80053; 80061; 80324; 80345; 80346; 80349; 80353; 80358; 80361; 83036; 83992; 84443; 84484; 85025; 85027; 85378; 85610; 85730; 87086; 93005; 93306; 99285; G0378; J1650; J1885; Q9967

== ENCOUNTER 2018-02-27 22:09 | Observation (INO) | payer MEDICAID ==
[2018-02-27 22:09] VITALS: BMI 32.5
[2018-02-27] MEDS ORDERED: Iohexol 240 (50 ml) PO ONE (23:08)
[2018-02-27 23:22] LABS: BASO # 0.1 K/uL (0.0-0.2); BASO % 1.1 % (0.0-2.0); EOS # 0.3 K/uL (0.0-0.7); EOS % 2.6 % (0.0-4.0); HEMOGLOBIN 11.3 g/dL (12.0-18.0); LYMPH # 2.1 K/uL (1.0-4.3); LYMPH % 15.3 % (20.0-40.0); MEAN CORPUSCULAR HEMOGLOBIN 29.8 pg (27.0-31.0); MEAN CORPUSCULAR HGB CONC 33.9 g/dL (33.0-37.0); MEAN PLATELET VOLUME 6.7 fl (7.2-11.7); MONO # 0.9 K/uL (0.0-0.8); MONO % 6.6 % (0.0-10.0); NEUT % 74.4 % (50.0-75.0); RBC 3.79 Mil/uL (4.40-5.90); RED CELL DISTRIBUTION WIDTH 13.2 % (11.5-14.5); WHITE BLOOD COUNT 13.5 K/uL (4.8-10.8)
--- NOTE | 2018-02-27 23:30 | ED PDOC ---
HPI: Abdomen Time Seen by Provider: 02/27/18 22:28 Chief Complaint (Nursing): GI Problem Chief Complaint (Provider): GI Problem History Per: Patient History/Exam Limitations: no limitations Onset/Duration Of Symptoms: Hrs (today) Current Symptoms Are (Timing): Still Present Additional Complaint(s): Juan J Hurtado is a 52 year old male with a past medical history of hypertension, hypercholesterolemia, and arthritis, who is presenting to the ER with complaints of bright red blood in the stool, with associated loose bowel movements, onset earlier today. Patient reports 3 episodes of blood in the stool and states that he had a hernia repair at [facility] on 02/17/[address] Rivera. 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 Patient states he has abdominal pain localized to the surgical site for which he takes Percocet and Motrin. He denies any dark stool, vomiting, fever, dizziness, chest pain, rectal trauma, or sexual activity. Patient reports no other medical complaints. Of Note: patient reports having a colonoscopy done with normal results. Patient denies taking any blood thinners. PMD: Dedrick Mendez Past Medical History Reviewed: Historical Data, Nursing Documentation, Vital Signs Vital Signs: Last Vital Signs Temp 98.0 F 03/02/18 08:25 Pulse 74 03/02/18 08:36 Resp 20 03/02/18 08:25 BP 155/76 H 03/02/18 08:36 Pulse Ox 95 03/02/18 08:25 - Medical History PMH: Arthritis, Bronchitis, HTN, Hypercholesterolemia Denies: Atrial Fibrillation, CAD, Chronic Kidney Disease - Surgical History Surgical History: Endoscopy, Hernia Repair (ventral) - Family History Family History: States: Unknown Family Hx - Social History Current smoker - smoking cessation education provided: Yes (some, occasional) Alcohol: None Drugs: Denies - Immunization History Hx Influenza Vaccination: No - Home Medications Home Medications: Ambulatory Orders Medication Instructions Recorded Omeprazole 40 mg PO DAILY 02/19/18 Amoxicillin/Clavulanate [Augmentin 1 tab PO Q12 #10 tab 02/26/18 875 MG-125 MG Tab] Atorvastatin [Lipitor] 20 mg PO DAILY #30 tab 02/26/18 Lactobacillus Acidophilus [Bacid 1 cap PO BID #10 cap 02/26/18 Acidophilus] Metoprolol Succinate [Toprol XL] 50 mg PO DAILY #30 tab 02/26/18 Valsartan [Diovan] 160 mg PO DAILY #30 tab 02/26/18 - Allergies Allergies/Adverse Reactions: Allergies Allergy/AdvReac Type Severity Reaction Status Date / Time No Known Allergies Allergy Verified 09/18/17 08:35 Review of Systems ROS Statement: Except As Marked, All Systems Reviewed And Found Negative Constitutional: Negative for: Fever Cardiovascular: Negative for: Chest Pain Gastrointestinal: Positive for: Abdominal Pain (surgical site), Hematochezia, Other (loose bowel movements, (-) rectal trauma and sexual activity). Negative for: Vomiting, Melena Neurological: Negative for: Dizziness, Other (syncope) Physical Exam - Reviewed Nursing Documentation Reviewed: Yes Vital Signs Reviewed: Yes - Physical Exam Appears: Positive for: Non-toxic, No Acute Distress Head Exam: Positive for: ATRAUMATIC, NORMAL INSPECTION, NORMOCEPHALIC Skin: Positive for: Normal Color, Warm, Dry Eye Exam: Positive for: EOMI, Normal appearance, PERRL Neck: Positive for: Normal, Painless ROM, Supple Cardiovascular/Chest: Positive for: Regular Rate, Rhythm. Negative for: Murmur Respiratory: Positive for: Normal Breath Sounds. Negative for: Respiratory Distress Gastrointestinal/Abdominal: Positive for: Soft, Other ((+) vertical surgical scar to lower abdomen, sutures in place, swelling to the left of scar, blood oozing from lower third of surgical site. (-) dehiscence). Negative for: Tenderness, Mass Back: Positive for: Normal Inspection. Negative for: L CVA Tenderness, R CVA Tenderness, Vertebral Tenderness Rectal: Positive for: Other (bright red blood present, Male nurse Eamon chaperoned). Negative for: Hemorrhoids, Mass, Tenderness Extremity: Positive for: Normal ROM. Negative for: Pedal Edema, Deformity, Swelling Neurologic/Psych: Positive for: Alert, Oriented. Negative for: Motor/Sensory Deficits - Laboratory Results Result Diagrams: 03/01/18 05:30 02/27/18 23:19 - ECG O2 Sat by Pulse Oximetry: 95 (RA) Pulse Ox Interpretation: Normal Medical Decision Making Medical Decision Making: Time: 22:08 Impression: Rectal Bleeding Differentials: Internal hemorrhoids, colitis, diverticulitis, AVM, small bowel obstruction, other complications related to hernia repair such as bowel ischemia Plan: --Blood Type and Screen --CT Abd/Pelvis --CMP --CBC --PTT --COAG --Omnipaque 50 ml PO --Protonix Inj 40 mg IVP 23:[address] Rivera. Provider discussed the case with Dr. Rivera and surgical appliance fitter. residential property manager saw patient in ER and discussed case with Dr. Rivera. Dr. Rivera states that no surgical workup for postop complications is needed and intervention is no necessary at this time. CT report reviewed. [address] Aguliar who admitted the patient last week and accepts the patient today. Surgical consult is on board. GI will be consulted inpatient. Scribe Attestation: Documented by Hallie Connors, acting as a scribe for Chi Rojas MD. Provider Scribe Attestation: All medical record entries made by the Scribe were at my direction and personally dictated by me. I have reviewed the chart and agree that the record accurately reflects my personal performance of the history, physical exam, medical decision making, and the department course for this patient. I have also personally directed, reviewed, and agree with the discharge instructions and disposition. Disposition - Clinical Impression Clinical Impression: Gastrointestinal hemorrhage - Patient ED Disposition Is Patient to be Admitted: Yes Discussed With : Tello Aguilar Doctor Will See Patient In The: Hospital Counseled Patient/Family Regarding: Studies Performed, Diagnosis - Disposition Disposition Time: 06:30 Condition: GOOD - Pt Status Changed To: Hospital Disposition Of: Observation - POA Present On Arrival: None
[2018-02-27 23:43] LABS: PARTIAL THROMBOPLASTIN TIME 27.3 Seconds (25.6-37.1); PROTHROMBIN TIME 11.1 Seconds (9.8-13.1)
[2018-02-27 23:56] LABS: ALB/GLOB RATIO 1.2 (1.0-2.1); ALBUMIN 3.5 g/dL (3.5-5.0); ALT/SGPT 48 U/L (21-72); AST/SGOT 33 U/L (17-59); BLOOD UREA NITROGEN 16 mg/dl (9-20); CALCIUM 8.2 mg/dL (8.4-10.2); GFR AFRICAN-AMERICAN > 60; GFR NON-AFRICAN AMERICAN > 60
[2018-02-28] MEDS ORDERED: Iohexol 240 (50 ml) ONE (02:30)
[2018-02-28] MEDS ORDERED: Oxycodone/Acetaminophen 5/325 mg Tab PO ONE (02:35)
[2018-02-28] MEDS ORDERED: Iohexol 300 100 ML IJ ONE (04:16)
--- NOTE | 2018-02-28 06:18 | CT ---
EXAM: CT Abdomen and Pelvis With Intravenous Contrast CLINICAL HISTORY: 52 years old, male; Signs and symptoms; Other: Rectal bleeding; Additional info: Lower gi bleed TECHNIQUE: Axial computed tomography images of the abdomen and pelvis with intravenous contrast. All CT scans at this facility use one or more dose reduction techniques, viz.: automated exposure control; ma/kV adjustment per patient size (including targeted exams where dose is matched to indication; i.e. head); or iterative reconstruction technique. 734 images are submitted. Oral contrast was administered. Axial images are submitted in lung and soft tissue windows. Coronal and sagittal reformatted images were created and reviewed. CONTRAST: 95 mL of omnipaque 300 administered intravenously. COMPARISON: No relevant prior studies available. FINDINGS: Lung bases: Unremarkable. No mass. No consolidation. Mediastinum: Small hiatal hernia. ABDOMEN: Liver: Fatty liver. Gallbladder and bile ducts: Unremarkable. No ductal dilation. Pancreas: Unremarkable. No mass. No ductal dilation. Spleen: Unremarkable. No splenomegaly. Adrenals: Unremarkable. No mass. Kidneys and ureters: Unremarkable. No solid mass. No hydronephrosis. Stomach and bowel: There is focal distention of small bowel loops with air fluid level abutting the anterior abdominal wall seen on image 66 series 2 image 79 series 2 there is transition seen in the midabdomen on image 77 series 2. These findings may represent focal ileus versus developing partial or early small bowel obstruction patient is clinically obstructed. No mucosal thickening. There is some hyperdensity in the transverse and left colon may represent prior contrast retention. No contrast is seen in the cecal or mid to distal small bowel. Appendix: The appendix is not seen. PELVIS: Bladder: Bladder distention 16 cm. Correlation with patient's voiding status is recommended. Reproductive: Mild enlargement of prostate gland. ABDOMEN and PELVIS: Intraperitoneal space: Unremarkable. No free air. No significant fluid collection. Bones/joints: Multilevel vacuum degenerative disc disease. Remote fracture deformity of right-sided ribs. Soft tissues: There is a large anterior abdominal wall subcutaneous complex density hematoma measuring 13 cm x 13 cm by 11.6 cm. There are areas of hyperdensity and gas in this hematoma. Correlation with clinical data is recommended if infected hematoma versus acute on subacute hematoma is clinically suspected. There are anterior abdominal wall skin jazmin. Vasculature: The aorta demonstrates calcified plaque and is mildly ectatic but normal in caliber. No abdominal aortic aneurysm. Lymph nodes: Subcentimeter mesenteric and para-aortic lymph nodes. Shotty gastrohepatic ligament lymph nodes. IMPRESSION: 1. Possible focal ileus versus partial versus early mid small bowel obstruction. Correlation with patient's obstructive symptoms is recommended. If clinically indicated delayed imaging may be helpful to see transition of the contrast into the colon. 2. There is a large anterior abdominal wall subcutaneous complex density hematoma measuring 13 cm x 13 cm by 11.6 cm. There are areas of hyperdensity and gas in this hematoma. Correlation with clinical data is recommended if infected hematoma versus acute on subacute hematoma is clinically suspected. 3. Bladder distention 16 cm. Correlation with patient's voiding status is recommended.
[2018-02-28 10:44] VITALS: RESP 20
[2018-02-28] MEDS ORDERED: Sodium Chloride 0.9% 1,000 ML IV SCH (11:45)
--- NOTE | 2018-02-28 12:00 | CP.PCM.CON ---
History of Present Illness - History of Present Illness History of Present Illness: Surgery consult for hematoma, rectal bleed and partial SBO/ileus 52 M w recent surgery on 02/17 for recurrent ventral hernia came with rectal bleeding. Pt had surgery recently and when he finished percocet Rx he started to take motrin 600mg q6 for 1 week. Yesterday he noticed bloody stool x3 and decided to come in. It was bright red blood per rectum. Denies taking any blood thinner. Pt had chest pain in the last admission and ASA was recommended. Denies taking ASA. Denies h/o hemorrhoids. Pt also noticed bump on the incisional site. It is about [id number] and reports no change in size. There are small amount of blood clot draining from the punctate in the incision. Pt was send home with Augmentin for cellulitis of the incisional site. Denies Fever, chills, nausea, vomiting. PSH: ventral hernia repair PMH: HTN, HLD Review of Systems - Constitutional Constitutional: As Per HPI Past Patient History - Infectious Disease Hx of Infectious Diseases: None - Past Medical History & Family History Past Medical History?: Yes - Past Social History Alcohol: None Drugs: Denies - CARDIAC Hx Cardiac Disorders: Yes - PULMONARY Hx Respiratory Disorders: Yes - HEENT Hx HEENT Problems: No - RENAL Hx Chronic Kidney Disease: No - INTEGUMENTARY Hx Dermatological Problems: No - MUSCULOSKELETAL/RHEUMATOLOGICAL Hx Musculoskeletal Disorders: Yes - ANESTHESIA Hx Anesthesia: Yes Hx Anesthesia Reactions: No Meds Allergies/Adverse Reactions: Allergies Allergy/AdvReac Type Severity Reaction Status Date / Time No Known Allergies Allergy Verified 09/18/17 08:35 - Medications Medications: Current Medications Acetaminophen (Tylenol 325mg Tab) 650 mg PO Q6 PRN PRN Reason: Fever >100.4 F Sodium Chloride (Sodium Chloride 0.9%) 1,000 mls @ 100 mls/hr IV .Q10H [id number] Stop: 03/01/18 11:32 Oxycodone/Acetaminophen (Percocet 5/325 Mg Tab) 2 tab PO Q4 PRN PRN Reason: Pain, moderate (4-7) Stop: 03/03/18 11:30 Pantoprazole Sodium (Protonix Inj) 40 mg IVP BID [id number] Physical Exam - Constitutional Appears: No Acute Distress - Head Exam Head Exam: ATRAUMATIC, NORMAL INSPECTION, NORMOCEPHALIC - Eye Exam Eye Exam: EOMI, Normal appearance, PERRL Pupil Exam: NORMAL ACCOMODATION, PERRL - ENT Exam ENT Exam: Mucous Membranes Moist, Normal Exam - Neck Exam Neck exam: Positive for: Normal Inspection - Respiratory Exam Respiratory Exam: Clear to Auscultation Bilateral, NORMAL BREATHING PATTERN - Cardiovascular Exam Cardiovascular Exam: REGULAR RHYTHM - GI/Abdominal Exam GI & Abdominal Exam: Normal Bowel Sounds, Soft, Tenderness. absent: Distended, Firm, Hernia, Rebound, Rigid Additional comments: [id number] cm mass under the incision . Firm. jazmin in place. small amount of dry clot on the punctate. Non fluctuant. Erythema. - Rectal Exam Rectal Exam: NORMAL INSPECTION. absent: Black Stool, Bloody Stool, Hemorrhoids - Extremities Exam Extremities exam: Positive for: normal inspection - Back Exam Back exam: NORMAL INSPECTION - Neurological Exam Neurological exam: Alert, CN II-XII Intact, Normal Gait, Oriented x3, Reflexes Normal - Psychiatric Exam Psychiatric exam: Normal Affect, Normal Mood - Skin Skin Exam: Erythema, Normal Color, Warm Results - Vital Signs Recent Vital Signs: Last Vital Signs Temp 97.8 F 02/28/18 10:44 Pulse 85 02/28/18 10:44 Resp 20 02/28/18 10:44 BP 131/88 02/28/18 10:44 Pulse Ox 99 02/28/18 10:44 - Labs Result Diagrams: 02/27/18 23:19 02/27/18 23:19 Labs: Laboratory Results - last 24 hr 02/27/18 02/27/18 02/27/18 22:45 23:19 23:19 WBC 13.5 H RBC 3.79 L Hgb 11.3 L D Hct 33.3 L MCV 88.0 MCH 29.8 MCHC 33.9 RDW 13.2 Plt Count 391 MPV 6.7 L Neut % (Auto) 74.4 Lymph % (Auto) 15.3 L [place] % (Auto) 6.6 Eos % (Auto) 2.6 Baso % (Auto) 1.1 Neut # (Auto) 10.0 H Lymph # (Auto) 2.1 [place] # (Auto) 0.9 H Eos # (Auto) 0.3 Baso # (Auto) 0.1 PT INR APTT Sodium 137 Potassium 4.6 Chloride 99 Carbon Dioxide 25 Anion Gap 18 BUN 16 Creatinine 1.1 Est GFR ( Amer) > 60 Est GFR (Non-Af Amer) > 60 Random Glucose 104 Calcium 8.2 L Total Bilirubin 0.4 AST 33 ALT 48 Alkaline Phosphatase 54 Total Protein 6.3 Albumin 3.5 Globulin 2.8 Albumin/Globulin Ratio 1.2 Blood Type O POSITIVE Antibody Screen Negative BBK History Checked No verified bt 02/27/18 23:19 WBC RBC Hgb Hct MCV MCH MCHC RDW Plt Count MPV Neut % (Auto) Lymph % (Auto) [place] % (Auto) Eos % (Auto) Baso % (Auto) Neut # (Auto) Lymph # (Auto) [place] # (Auto) Eos # (Auto) Baso # (Auto) PT 11.1 INR 1.0 APTT 27.3 Sodium Potassium Chloride Carbon Dioxide Anion Gap BUN Creatinine Est GFR ( Amer) Est GFR (Non-Af Amer) Random Glucose Calcium Total Bilirubin AST ALT Alkaline Phosphatase Total Protein Albumin Globulin Albumin/Globulin Ratio Blood Type Antibody Screen BBK History Checked Assessment & Plan - Assessment and Plan (Free Text) Assessment: abd wall hematoma under incision s/p ventral hernia repair w mesh hgb 11 wbc 13.5 INR 1, PTT 25 -Diet per GI -GI consult for lower GI bleed -IVF -ABX -PPI -SCD -monitor labs -No anticoagulation JUWAN Rivera
[2018-02-28] MEDS: Dextrose 5%/Lactated Ringer's 1,000 ML IV SCH ×3 (14:27→23:54)
[2018-02-28] MEDS: Oxycodone/Acetaminophen 5/325 mg Tab PO PRN ×2 (14:32→22:23)
--- NOTE | 2018-02-28 22:02 | CP.PCM.HP ---
History of Present Illness - History of Present Illness History of Present Illness: This is a 52 y/o male admitted for a first episode of fresh blood rectal bleed yesterday . There was no abdominal pain.. Claims that the episode started when he had a bowel movement yesterday morning. He was just recently discharged the other day after an episode of chest pain. He was also noted to have an elevated WBC but negative blood and urine C and S and was sent home on Augmentin and Ibuprofen, Has a hx of HTn and hyperlipidemia. Present on Admission - Present on Admission Any Indicators Present on Admission: No History of DVT/PE: No History of Uncontrolled Diabetes: No Urinary Catheter: No Decubitus Ulcer Present: No Review of Systems - Cardiovascular Cardiovascular: Chest Pain Past Patient History - Infectious Disease Hx of Infectious Diseases: None - Past Medical History & Family History Past Medical History?: Yes - Past Social History Alcohol: None Drugs: Denies - CARDIAC Hx Cardiac Disorders: Yes - PULMONARY Hx Respiratory Disorders: Yes - HEENT Hx HEENT Problems: No - RENAL Hx Chronic Kidney Disease: No - INTEGUMENTARY Hx Dermatological Problems: No - MUSCULOSKELETAL/RHEUMATOLOGICAL Hx Musculoskeletal Disorders: Yes - ANESTHESIA Hx Anesthesia: Yes Hx Anesthesia Reactions: No Meds Allergies/Adverse Reactions: Allergies Allergy/AdvReac Type Severity Reaction Status Date / Time No Known Allergies Allergy Verified 09/18/17 08:35 Physical Exam - Head Exam Head Exam: NORMAL INSPECTION - Eye Exam Eye Exam: Normal appearance - ENT Exam ENT Exam: Mucous Membranes Moist - Respiratory Exam Respiratory Exam: NORMAL BREATHING PATTERN - Cardiovascular Exam Cardiovascular Exam: REGULAR RHYTHM - GI/Abdominal Exam GI & Abdominal Exam: Normal Bowel Sounds, Tenderness - Neurological Exam Neurological exam: CN II-XII Intact, Oriented x3 Results - Vital Signs Recent Vital Signs: Last Vital Signs Temp 97.9 F 02/28/18 16:22 Pulse 92 H 02/28/18 16:22 Resp 20 02/28/18 16:22 BP 96/63 L 02/28/18 16:22 Pulse Ox 95 02/28/18 16:22 - Labs Result Diagrams: 02/27/18 23:19 02/27/18 23:19 Labs: Laboratory Results - last 24 hr 02/27/18 02/27/18 02/27/18 22:45 23:19 23:19 WBC 13.5 H RBC 3.79 L Hgb 11.3 L D Hct 33.3 L MCV 88.0 MCH 29.8 MCHC 33.9 RDW 13.2 Plt Count 391 MPV 6.7 L Neut % (Auto) 74.4 Lymph % (Auto) 15.3 L [place] % (Auto) 6.6 Eos % (Auto) 2.6 Baso % (Auto) 1.1 Neut # (Auto) 10.0 H Lymph # (Auto) 2.1 [place] # (Auto) 0.9 H Eos # (Auto) 0.3 Baso # (Auto) 0.1 PT INR APTT Sodium 137 Potassium 4.6 Chloride 99 Carbon Dioxide 25 Anion Gap 18 BUN 16 Creatinine 1.1 Est GFR ( Amer) > 60 Est GFR (Non-Af Amer) > 60 Random Glucose 104 Calcium 8.2 L Total Bilirubin 0.4 AST 33 ALT 48 Alkaline Phosphatase 54 Total Protein 6.3 Albumin 3.5 Globulin 2.8 Albumin/Globulin Ratio 1.2 Blood Type O POSITIVE Antibody Screen Negative BBK History Checked No verified bt 02/27/18 23:19 WBC RBC Hgb Hct MCV MCH MCHC RDW Plt Count MPV Neut % (Auto) Lymph % (Auto) [place] % (Auto) Eos % (Auto) Baso % (Auto) Neut # (Auto) Lymph # (Auto) [place] # (Auto) Eos # (Auto) Baso # (Auto) PT 11.1 INR 1.0 APTT 27.3 Sodium Potassium Chloride Carbon Dioxide Anion Gap BUN Creatinine Est GFR ( Amer) Est GFR (Non-Af Amer) Random Glucose Calcium Total Bilirubin AST ALT Alkaline Phosphatase Total Protein Albumin Globulin Albumin/Globulin Ratio Blood Type Antibody Screen BBK History Checked Assessment & Plan (1) Rectal bleeding Status: Acute (2) Gastritis Status: Acute (3) Hypertension Status: Chronic - Assessment and Plan (Free Text) Plan: Keep NPO Hydrate IV protonix GI eval.
--- NOTE | 2018-03-01 02:09 | CP.PCM.CON ---
History of Present Illness - History of Present Illness History of Present Illness: 52 yo male with surgery 1 1/2 weeks ago for ventral wall hernia admitted for bleeding from surgical incision for 2 days and then rectal bleed the day before admission. Patient over past week has been using ibuprofen 600 mg for pain. since admission has not been having rectal bleeding. Review of Systems - Constitutional Constitutional: absent: Chills - EENT Eyes: absent: Blurred Vision Ears: absent: Decreased Hearing Nose/Mouth/Throat: absent: Epistaxis - Cardiovascular Cardiovascular: absent: Chest Pain - Respiratory Respiratory: absent: Dyspnea - Gastrointestinal Gastrointestinal: Abdominal Pain, Hematochezia Past Patient History - Infectious Disease Hx of Infectious Diseases: None - Past Medical History & Family History Past Medical History?: Yes - Past Social History Alcohol: None Drugs: Denies - CARDIAC Hx Cardiac Disorders: Yes - PULMONARY Hx Respiratory Disorders: Yes - HEENT Hx HEENT Problems: No - RENAL Hx Chronic Kidney Disease: No - INTEGUMENTARY Hx Dermatological Problems: No - MUSCULOSKELETAL/RHEUMATOLOGICAL Hx Musculoskeletal Disorders: Yes - ANESTHESIA Hx Anesthesia: Yes Hx Anesthesia Reactions: No Meds Allergies/Adverse Reactions: Allergies Allergy/AdvReac Type Severity Reaction Status Date / Time No Known Allergies Allergy Verified 09/18/17 08:35 - Medications Medications: Current Medications Acetaminophen (Tylenol 325mg Tab) 650 mg PO Q6 PRN PRN Reason: Fever >100.4 F Vancomycin HCl 1 gm/ Sodium (Chloride) 250 mls @ 166.667 mls/hr IVPB Q12H [facility] PRN Reason: Protocol Last Admin: 02/28/18 23:52 Dose: 166.667 mls/hr Dextrose/Lactated Ringer's (Dextrose 5%/Lactated Ringer's) 1,000 mls @ 125 mls/ hr IV .Q8H [facility] Stop: 03/03/18 23:00 Last Admin: 02/28/18 23:54 Dose: 125 mls/hr Oxycodone/Acetaminophen (Percocet 5/325 Mg Tab) 2 tab PO Q4 PRN PRN Reason: Pain, moderate (4-7) Stop: 03/03/18 11:30 Last Admin: 02/28/18 22:23 Dose: 2 tab Pantoprazole Sodium (Protonix Inj) 40 mg IVP BID [facility] Last Admin: 02/28/18 16:59 Dose: 40 mg Physical Exam - Head Exam Head Exam: ATRAUMATIC - Eye Exam Eye Exam: Normal appearance Pupil Exam: PERRL - ENT Exam ENT Exam: Mucous Membranes Moist - Neck Exam Neck exam: Positive for: Normal Inspection - Respiratory Exam Respiratory Exam: Clear to Auscultation Bilateral - Cardiovascular Exam Cardiovascular Exam: REGULAR RHYTHM, +S1, +S2 - GI/Abdominal Exam GI & Abdominal Exam: Distended, Tenderness Results - Vital Signs Recent Vital Signs: Last Vital Signs Temp 97.6 F 03/01/18 00:06 Pulse 82 03/01/18 00:06 Resp 20 03/01/18 00:06 BP 126/82 03/01/18 00:06 Pulse Ox 95 03/01/18 00:06 - Labs Result Diagrams: 02/27/18 23:19 02/27/18 23:19 - Imaging and Cardiology CT scan - abdomen Status: Report reviewed by me Additional comment: Accession No. : [id number] Patient Name / ID : HARRY KURTZ / [id number] Exam Date : 02/28/2018 04:28:48 ( Approved ) Study Comment : Sex / Age : M / 52Y Creator : FELICIA PEREZ Dictator : Access Specialist : Utility Locate Technician : FELICIA PEREZ Approver2 : Report Date : 02/28/2018 06:18:00 My Comment : [facility] Division of Radiology [address] [place] [address] Tel. no. Patient Name: TESSIE MCDONALD Pt. Address: [address] [place] [address] Rec #: [id number] [place] [address]: Crystal MAGALLANES, Chi Crystal Pt Order Location: [facility] : 1965 Male Age: 52 Order #: [id number] Reason for exam: lower GI bleed CT Scan ABD PELVIS PO IV CONTRAST Exam Date: 02/27/18 This imaging exam was performed at [facility] ADDENDUM Addendum created by Felicia Perez MD on 02/28/2018 6:34:38 AM EDT CRITICAL RESULT: The study was personally discussed on the telephone with [Dr. Rojas [facility]] on 02/28/2018 6:33 AM EDT. The results were understood and acknowledged. Initial report created on 02/28/2018 6:18:05 AM EDT EXAM: CT Abdomen and Pelvis With Intravenous Contrast CLINICAL HISTORY: 52 years old, male; Signs and symptoms; Other: Rectal bleeding; Additional info: Lower gi bleed TECHNIQUE: Axial computed tomography images of the abdomen and pelvis with intravenous contrast. All CT scans at this facility use one or more dose reduction techniques, viz.: automated exposure control; ma/kV adjustment per patient size (including targeted exams where dose is matched to indication; i.e. head); or iterative reconstruction technique. 734 images are submitted. Oral contrast was administered. Axial images are submitted in lung and soft tissue windows. Coronal and sagittal reformatted images were created and reviewed. CONTRAST: 95 mL of omnipaque 300 administered intravenously. COMPARISON: No relevant prior studies available. FINDINGS: Lung bases: Unremarkable. No mass. No consolidation. Mediastinum: Small hiatal hernia. ABDOMEN: Liver: Fatty liver. Gallbladder and bile ducts: Unremarkable. No ductal dilation. Pancreas: Unremarkable. No mass. No ductal dilation. Spleen: Unremarkable. No splenomegaly. Adrenals: Unremarkable. No mass. Kidneys and ureters: Unremarkable. No solid mass. No hydronephrosis. Stomach and bowel: There is focal distention of small bowel loops with air fluid level abutting the anterior abdominal wall seen on image 66 series 2 image 79 series 2 there is transition seen in the midabdomen on image 77 series 2. These findings may represent focal ileus versus developing partial or early small bowel obstruction patient is clinically obstructed. No mucosal thickening. There is some hyperdensity in the transverse and left colon may represent prior contrast retention. No contrast is seen in the cecal or mid to distal small bowel. Appendix: The appendix is not seen. PELVIS: Bladder: Bladder distention 16 cm. Correlation with patient's voiding status is recommended. Reproductive: Mild enlargement of prostate gland. ABDOMEN and PELVIS: Intraperitoneal space: Unremarkable. No free air. No significant fluid collection. Bones/joints: Multilevel vacuum degenerative disc disease. Remote fracture deformity of right-sided ribs. Soft tissues: There is a large anterior abdominal wall subcutaneous complex density hematoma measuring 13 cm x 13 cm by 11.6 cm. There are areas of hyperdensity and gas in this hematoma. Correlation with clinical data is recommended if infected hematoma versus acute on subacute hematoma is clinically suspected. There are anterior abdominal wall skin jazmin. Vasculature: The aorta demonstrates calcified plaque and is mildly ectatic but normal in caliber. No abdominal aortic aneurysm. Lymph nodes: Subcentimeter mesenteric and para-aortic lymph nodes. Shotty gastrohepatic ligament lymph nodes. IMPRESSION: 1. Possible focal ileus versus partial versus early mid small bowel obstruction. Correlation with patient's obstructive symptoms is recommended. If clinically indicated delayed imaging may be helpful to see transition of the contrast into the colon. 2. There is a large anterior abdominal wall subcutaneous complex density hematoma measuring 13 cm x 13 cm by 11.6 cm. There are areas of hyperdensity and gas in this hematoma. Correlation with clinical data is recommended if infected hematoma versus acute on subacute hematoma is clinically suspected. 3. Bladder distention 16 cm. Correlation with patient's voiding status is recommended. Addendum Dictated By: FELICIA PEREZ MD Addendum Dictated Date Time:02/28/18 Addendum Signed by:FELICIA PEREZ MD Addendum signed Date Time: 02/28/18633 Addendum Transcribed By: CORBY Addendum Transcribed Date Time: 02/28/18 YANY/NICOLE EXAM: CT Abdomen and Pelvis With Intravenous Contrast CLINICAL HISTORY: 52 years old, male; Signs and symptoms; Other: Rectal bleeding; Additional info: Lower gi bleed TECHNIQUE: Axial computed tomography images of the abdomen and pelvis with intravenous contrast. All CT scans at this facility use one or more dose reduction techniques, viz.: automated exposure control; ma/kV adjustment per patient size (including targeted exams where dose is matched to indication; i.e. head); or iterative reconstruction technique. 734 images are submitted. Oral contrast was administered. Axial images are submitted in lung and soft tissue windows. Coronal and sagittal reformatted images were created and reviewed. CONTRAST: 95 mL of omnipaque 300 administered intravenously. COMPARISON: No relevant prior studies available. FINDINGS: Lung bases: Unremarkable. No mass. No consolidation. Mediastinum: Small hiatal hernia. ABDOMEN: Liver: Fatty liver. Gallbladder and bile ducts: Unremarkable. No ductal dilation. Pancreas: Unremarkable. No mass. No ductal dilation. Spleen: Unremarkable. No splenomegaly. Adrenals: Unremarkable. No mass. Kidneys and ureters: Unremarkable. No solid mass. No hydronephrosis. Stomach and bowel: There is focal distention of small bowel loops with air fluid level abutting the anterior abdominal wall seen on image 66 series 2 image 79 series 2 there is transition seen in the midabdomen on image 77 series 2. These findings may represent focal ileus versus developing partial or early small bowel obstruction patient is clinically obstructed. No mucosal thickening. There is some hyperdensity in the transverse and left colon may represent prior contrast retention. No contrast is seen in the cecal or mid to distal small bowel. Appendix: The appendix is not seen. PELVIS: Bladder: Bladder distention 16 cm. Correlation with patient's voiding status is recommended. Reproductive: Mild enlargement of prostate gland. ABDOMEN and PELVIS: Intraperitoneal space: Unremarkable. No free air. No significant fluid collection. Bones/joints: Multilevel vacuum degenerative disc disease. Remote fracture deformity of right-sided ribs. Soft tissues: There is a large anterior abdominal wall subcutaneous complex density hematoma measuring 13 cm x 13 cm by 11.6 cm. There are areas of hyperdensity and gas in this hematoma. Correlation with clinical data is recommended if infected hematoma versus acute on subacute hematoma is clinically suspected. There are anterior abdominal wall skin jazmin. Vasculature: The aorta demonstrates calcified plaque and is mildly ectatic but normal in caliber. No abdominal aortic aneurysm. Lymph nodes: Subcentimeter mesenteric and para-aortic lymph nodes. Shotty gastrohepatic ligament lymph nodes. IMPRESSION: 1. Possible focal ileus versus partial versus early mid small bowel obstruction. Correlation with patient's obstructive symptoms is recommended. If clinically indicated delayed imaging may be helpful to see transition of the contrast into the colon. 2. There is a large anterior abdominal wall subcutaneous complex density hematoma measuring 13 cm x 13 cm by 11.6 cm. There are areas of hyperdensity and gas in this hematoma. Correlation with clinical data is recommended if infected hematoma versus acute on subacute hematoma is clinically suspected. 3. Bladder distention 16 cm. Correlation with patient's voiding status is recommended. Dictated By: FELICIA PEREZ Dictated Date/Time: 02/28/18617 Signed By: FELICIA PEREZ MD Date Signed: [id number] Transcribed By: CORBY Transcribe Date/Time : 02/28/18617 PARSJACQUI/NICOLE Assessment & Plan (1) Abnormal finding on CT scan Assessment and Plan: Large abdominal hematoma and abdominal distention with focal distention of small bowel loops. Differential includes ileus vs early small bowel obstruction. Currently the rectal bleeding has stopped. Will advance diet to clears and follow with you. Status: Acute
[2018-03-01] MEDS ORDERED: Alum-Mag Hydrox-Simethicone Susp (30 mL) PO ONE (03:14)
[2018-03-01] MEDS: Dextrose 5%/Lactated Ringer's 1,000 ML IV SCH ×2 (05:15→12:14)
[2018-03-01 07:16] LABS: BASO # 0.1 K/uL (0.0-0.2); EOS # 0.3 K/uL (0.0-0.7); EOS % 2.7 % (0.0-4.0); HEMOGLOBIN 10.4 g/dL (12.0-18.0); LYMPH % 18.7 % (20.0-40.0); MEAN CELL VOLUME 88.4 fl (80.0-94.0); MEAN CORPUSCULAR HEMOGLOBIN 30.2 pg (27.0-31.0); MEAN CORPUSCULAR HGB CONC 34.2 g/dL (33.0-37.0); MEAN PLATELET VOLUME 6.9 fl (7.2-11.7); MONO # 0.7 K/uL (0.0-0.8); MONO % 6.9 % (0.0-10.0); NEUT # 7.5 K/uL (1.8-7.0); NEUT % 70.7 % (50.0-75.0); RBC 3.43 Mil/uL (4.40-5.90); RED CELL DISTRIBUTION WIDTH 13.2 % (11.5-14.5); WHITE BLOOD COUNT 10.6 K/uL (4.8-10.8)
[2018-03-01] MEDS: Oxycodone/Acetaminophen 5/325 mg Tab PO PRN ×3 (07:36→23:39)
--- NOTE | 2018-03-01 08:00 | CP.PCM.PN ---
Subjective - Date & Time of Evaluation Date of Evaluation: 03/01/18 Time of Evaluation: 07:58 - Subjective Subjective: Surgery Pt seen and examined. Abdominal hematoma spontaneously drained overnight. Dressing place. Dressing replaced yesterday. Abd pain improved since the drainage. No bloody BM since admissions. TOlerating CLD Objective - Vital Signs/Intake and Output Vital Signs (last 24 hours): Temp Pulse Resp BP Pulse Ox 97.6 F 82 20 126/82 95 03/01/18 00:06 03/01/18 00:06 03/01/18 00:06 03/01/18 00:06 03/01/18 00:06 - Medications Medications: Current Medications Acetaminophen (Tylenol 325mg Tab) 650 mg PO Q6 PRN PRN Reason: Fever >100.4 F Vancomycin HCl 1 gm/ Sodium (Chloride) 250 mls @ 166.667 mls/hr IVPB Q12H [facility] PRN Reason: Protocol Last Admin: 02/28/18 23:52 Dose: 166.667 mls/hr Dextrose/Lactated Ringer's (Dextrose 5%/Lactated Ringer's) 1,000 mls @ 125 mls/ hr IV .Q8H [facility] Stop: 03/03/18 23:00 Last Admin: 03/01/18 05:15 Dose: Not Given Oxycodone/Acetaminophen (Percocet 5/325 Mg Tab) 2 tab PO Q4 PRN PRN Reason: Pain, moderate (4-7) Stop: 03/03/18 11:30 Last Admin: 03/01/18 07:36 Dose: 2 tab Pantoprazole Sodium (Protonix Inj) 40 mg IVP BID [facility] Last Admin: 02/28/18 16:59 Dose: 40 mg - Labs Labs: 03/01/18 05:30 02/27/18 23:19 PT 11.1 Seconds (9.8-13.1) 02/27/18 23:19 INR 1.0 (0.9-1.2) 02/27/18 23:19 APTT 27.3 Seconds (25.6-37.1) 02/27/18 23:19 - Constitutional Appears: No Acute Distress - Head Exam Head Exam: ATRAUMATIC, NORMAL INSPECTION, NORMOCEPHALIC - Eye Exam Eye Exam: EOMI, Normal appearance, PERRL Pupil Exam: NORMAL ACCOMODATION, PERRL - ENT Exam ENT Exam: Mucous Membranes Moist, Normal Exam - Neck Exam Neck Exam: Full ROM, Normal Inspection. absent: Lymphadenopathy - Respiratory Exam Respiratory Exam: Clear to Ausculation Bilateral, NORMAL BREATHING PATTERN - Cardiovascular Exam Cardiovascular Exam: REGULAR RHYTHM, +S1, +S2. absent: Murmur - GI/Abdominal Exam GI & Abdominal Exam: Soft, Tenderness, Normal Bowel Sounds. absent: Distended, Firm, Guarding, Rigid, Rebound Additional comments: Bloody drainage from the incision. 5x6cm hematoma on the L side of the incision persists. Greg in place - Exam Exam: NORMAL INSPECTION - Extremities Exam Extremities Exam: Full ROM, Normal Capillary Refill, Normal Inspection. absent : Joint Swelling, Pedal Edema - Back Exam Back Exam: NORMAL INSPECTION - Neurological Exam Neurological Exam: Alert, Awake, CN II-XII Intact, Normal Gait, Oriented x3 - Psychiatric Exam Psychiatric exam: Normal Affect, Normal Mood - Skin Skin Exam: Erythema, Warm. absent: Dry, Intact, Normal Color Assessment and Plan - Assessment and Plan (Free Text) Assessment: abd wall hematoma under incision s/p ventral hernia repair w mesh early p SBO hgb 11 wbc 13.5 INR 1, PTT 25 -Dressing change PRN -Liquid Diet per GI -GI consult for lower GI bleed -IVF -ABX -PPI -SCD -monitor labs -No anticoagulation Will DW Dr. Rivera
[2018-03-01] MEDS: POLYETHYLENE GLYCOL 3350 17 GM/Dose PACKET PO SCH (11:47)
[2018-03-01] MEDS: Metoprolol Succinate 50 mg XL Tab PO SCH (16:17)
--- NOTE | 2018-03-01 23:47 | CP.PCM.PN ---
Subjective - Date & Time of Evaluation Date of Evaluation: 03/01/18 Time of Evaluation: 11:30 - Subjective Subjective: Patient remains stable Has no episode of GI bleed. Noted slight decrease in Hgb. Objective - Vital Signs/Intake and Output Vital Signs (last 24 hours): Temp Pulse Resp BP Pulse Ox 98.2 F 98 H 20 105/64 95 03/01/18 16:10 03/01/18 16:10 03/01/18 16:10 03/01/18 16:10 03/01/18 16:10 - Medications Medications: Current Medications Acetaminophen (Tylenol 325mg Tab) 650 mg PO Q6 PRN PRN Reason: Fever >100.4 F Docusate Sodium (Colace) 100 mg PO BID [facility] Last Admin: 03/01/18 16:17 Dose: 100 mg Vancomycin HCl 1 gm/ Sodium (Chloride) 250 mls @ 166.667 mls/hr IVPB Q12H [facility] PRN Reason: Protocol Last Admin: 03/01/18 23:38 Dose: 166.667 mls/hr Metoprolol Succinate (Toprol Xl) 50 mg PO DAILY [facility] Last Admin: 03/01/18 16:17 Dose: 50 mg Oxycodone/Acetaminophen (Percocet 5/325 Mg Tab) 2 tab PO Q4 PRN PRN Reason: Pain, moderate (4-7) Stop: 03/03/18 11:30 Last Admin: 03/01/18 23:39 Dose: 2 tab Pantoprazole Sodium (Protonix Inj) 40 mg IVP BID [facility] Last Admin: 03/01/18 16:16 Dose: 40 mg Polyethylene Glycol (Miralax) 17 gm PO DAILY [facility] Last Admin: 03/01/18 11:47 Dose: 17 gm - Labs Labs: 03/01/18 05:30 02/27/18 23:19 PT 11.1 Seconds (9.8-13.1) 02/27/18 23:19 INR 1.0 (0.9-1.2) 02/27/18 23:19 APTT 27.3 Seconds (25.6-37.1) 02/27/18 23:19 - Head Exam Head Exam: NORMAL INSPECTION - Eye Exam Eye Exam: Normal appearance - ENT Exam ENT Exam: Mucous Membranes Moist - Respiratory Exam Respiratory Exam: Clear to Ausculation Bilateral - Cardiovascular Exam Cardiovascular Exam: REGULAR RHYTHM - GI/Abdominal Exam GI & Abdominal Exam: Normal Bowel Sounds - Neurological Exam Neurological Exam: Awake, Oriented x3 Assessment and Plan (1) Rectal bleeding Status: Acute (2) Gastritis Status: Acute (3) Hypertension Status: Chronic - Assessment and Plan (Free Text) Plan: Cont meds Cont tx advance diet DC planning.
[2018-03-02] MEDS ORDERED: Alum-Mag Hydrox-Simethicone Susp (30 mL) PO ONE (01:39)
[2018-03-02 08:26] VITALS: BP 155/76; PULSE 74; TEMP 98; O2SAT 95
[2018-03-02] MEDS: Oxycodone/Acetaminophen 5/325 mg Tab PO PRN ×2 (08:34→14:18)
--- NOTE | 2018-03-02 08:34 | CP.PCM.PN ---
Subjective - Date & Time of Evaluation Date of Evaluation: 03/02/18 Time of Evaluation: 08:32 - Subjective Subjective: SURGERY NOTE FOR DR. RIVERA 52M seen and examined at bedside. Patient doing well, pain controlled, tolerating diet. Abdominal wall hematoma is draining small amount. Objective - Vital Signs/Intake and Output Vital Signs (last 24 hours): Temp Pulse Resp BP Pulse Ox 98.0 F 74 20 155/76 H 95 03/02/18 08:25 03/02/18 08:25 03/02/18 08:25 03/02/18 08:25 03/02/18 08:25 - Medications Medications: Current Medications Acetaminophen (Tylenol 325mg Tab) 650 mg PO Q6 PRN PRN Reason: Fever >100.4 F Docusate Sodium (Colace) 100 mg PO BID [facility] Last Admin: 03/01/18 16:17 Dose: 100 mg Vancomycin HCl 1 gm/ Sodium (Chloride) 250 mls @ 166.667 mls/hr IVPB Q12H [facility] PRN Reason: Protocol Last Admin: 03/01/18 23:38 Dose: 166.667 mls/hr Metoprolol Succinate (Toprol Xl) 50 mg PO DAILY [facility] Last Admin: 03/01/18 16:17 Dose: 50 mg Oxycodone/Acetaminophen (Percocet 5/325 Mg Tab) 2 tab PO Q4 PRN PRN Reason: Pain, moderate (4-7) Stop: 03/03/18 11:30 Last Admin: 03/01/18 23:39 Dose: 2 tab Pantoprazole Sodium (Protonix Inj) 40 mg IVP BID [facility] Last Admin: 03/01/18 16:16 Dose: 40 mg Polyethylene Glycol (Miralax) 17 gm PO DAILY [facility] Last Admin: 03/01/18 11:47 Dose: 17 gm - Labs Labs: 03/01/18 05:30 02/27/18 23:19 PT 11.1 Seconds (9.8-13.1) 02/27/18 23:19 INR 1.0 (0.9-1.2) 02/27/18 23:19 APTT 27.3 Seconds (25.6-37.1) 02/27/18 23:19 - Constitutional Appears: Well, Non-toxic, No Acute Distress - Respiratory Exam Respiratory Exam: Clear to Ausculation Bilateral, NORMAL BREATHING PATTERN - Cardiovascular Exam Cardiovascular Exam: REGULAR RHYTHM, +S1, +S2 - GI/Abdominal Exam GI & Abdominal Exam: Soft, Tenderness. absent: Distended, Firm, Guarding, Rigid , Rebound Additional comments: staple in place. dark blood draining from hematoma - Neurological Exam Neurological Exam: Alert, Awake Assessment and Plan - Assessment and Plan (Free Text) Assessment: 52M with abdominal wall hematoma, draining, resolving Plan: - f/u with Dr Rivera friday03/06/18 in outpatient setting for further staple removal - Patient clear for DC from surgery Discussed with Dr Miguel Vega, PGY2
[2018-03-02] MEDS: POLYETHYLENE GLYCOL 3350 17 GM/Dose PACKET PO SCH (08:35)
[2018-03-02] MEDS: Metoprolol Succinate 50 mg XL Tab PO SCH (08:36)
--- NOTE | 2018-03-02 10:30 | CP.PCM.DIS ---
Provider - Provider Date of Admission: 03/01/18 14:28 Attending physician: Tello Aguilar MD Time Spent in preparation of Discharge (in minutes): 30 Diagnosis - Discharge Diagnosis (1) Rectal bleeding Status: Acute (2) Gastritis Status: Acute (3) Hypertension Status: Chronic Hospital Course - Lab Results Lab Results: Most Recent Lab Values WBC 10.6 K/uL (4.8-10.8) 03/01/18 05:30 RBC 3.43 Mil/uL (4.40-5.90) L 03/01/18 05:30 Hgb 10.4 g/dL (12.0-18.0) L 03/01/18 05:30 Hct 30.3 % (35.0-51.0) L 03/01/18 05:30 MCV 88.4 fl (80.0-94.0) 03/01/18 05:30 MCH 30.2 pg (27.0-31.0) 03/01/18 05:30 MCHC 34.2 g/dL (33.0-37.0) 03/01/18 05:30 RDW 13.2 % (11.5-14.5) 03/01/18 05:30 Plt Count 377 K/uL (130-400) 03/01/18 05:30 MPV 6.9 fl (7.2-11.7) L 03/01/18 05:30 Neut % (Auto) 70.7 % (50.0-75.0) 03/01/18 05:30 Lymph % (Auto) 18.7 % (20.0-40.0) L 03/01/18 05:30 [place] % (Auto) 6.9 % (0.0-10.0) 03/01/18 05:30 Eos % (Auto) 2.7 % (0.0-4.0) 03/01/18 05:30 Baso % (Auto) 1.0 % (0.0-2.0) 03/01/18 05:30 Neut # (Auto) 7.5 K/uL (1.8-7.0) H 03/01/18 05:30 Lymph # (Auto) 2.0 K/uL (1.0-4.3) 03/01/18 05:30 [place] # (Auto) 0.7 K/uL (0.0-0.8) 03/01/18 05:30 Eos # (Auto) 0.3 K/uL (0.0-0.7) 03/01/18 05:30 Baso # (Auto) 0.1 K/uL (0.0-0.2) 03/01/18 05:30 PT 11.1 Seconds (9.8-13.1) 02/27/18 23:19 INR 1.0 (0.9-1.2) 02/27/18 23:19 APTT 27.3 Seconds (25.6-37.1) 02/27/18 23:19 Sodium 137 mmol/l (132-148) 02/27/18 23:19 Potassium 4.6 MMOL/L (3.6-5.0) 02/27/18 23:19 Chloride 99 mmol/L (98-107) 02/27/18 23:19 Carbon Dioxide 25 mmol/L (22-30) 02/27/18 23:19 Anion Gap 18 (10-20) 02/27/18 23:19 BUN 16 mg/dl (9-20) 02/27/18 23:19 Creatinine 1.1 mg/dl (0.8-1.5) 02/27/18 23:19 Est GFR ( Amer) > 60 02/27/18 23:19 Est GFR (Non-Af Amer) > 60 02/27/18 23:19 Random Glucose 104 mg/dL (75-110) 02/27/18 23:19 Calcium 8.2 mg/dL (8.4-10.2) L 02/27/18 23:19 Total Bilirubin 0.4 mg/dl (0.2-1.3) 02/27/18 23:19 AST 33 U/L (17-59) 02/27/18 23:19 ALT 48 U/L (21-72) 02/27/18 23:19 Alkaline Phosphatase 54 U/L (38-126) 02/27/18 23:19 Total Protein 6.3 G/DL (6.3-8.2) 02/27/18 23:19 Albumin 3.5 g/dL (3.5-5.0) 02/27/18 23:19 Globulin 2.8 gm/dL (2.2-3.9) 02/27/18 23:19 Albumin/Globulin Ratio 1.2 (1.0-2.1) 02/27/18 23:19 Blood Type O POSITIVE 02/27/18 22:45 Antibody Screen Negative 02/27/18 22:45 BBK History Checked No verified bt 02/27/18 22:45 - Hospital Course Hospital Course: This is a 52 y/o male admitted for an episode of acute red blood rectal bleeding few days after he got home from hospitalization for chest pain. He was sent home on ASA and ibuprofen. he denied any chest pain or abd pain. he was admitted for observation. he had vague tenderness on the lower suprapubic area. there was no sign of trauma. He had a normal colonoscopy 2 years ago. CBC was monitored which was normal and Dr Helene Aguiar evaluated him. He had no other episode of GI bleed since he was admitted. Discharge Exam - Head Exam Head Exam: NORMAL INSPECTION - Eye Exam Eye Exam: Normal appearance - Respiratory Exam Respiratory Exam: NORMAL BREATHING PATTERN - Cardiovascular Exam Cardiovascular Exam: REGULAR RHYTHM - GI/Abdominal Exam GI & Abdominal Exam: Normal Bowel Sounds - Neurological Exam Neurological exam: CN II-XII Intact - Psychiatric Exam Psychiatric exam: Normal Mood - Skin Skin Exam: Dry Discharge Plan - Follow Up Plan Condition: GOOD Disposition: HOME/ ROUTINE Additional Instructions: Follow up with Dr. Rivera Friday03/06/18 Advised follow up with Dr Aguiar and Dr Tomeka Adler.
[2018-03-02 11:28] LABS: HEMOGLOBIN 10.6 g/dL (12.0-18.0); MEAN CELL VOLUME 88.4 fl (80.0-94.0); MEAN CORPUSCULAR HEMOGLOBIN 30.1 pg (27.0-31.0); MEAN CORPUSCULAR HGB CONC 34.1 g/dL (33.0-37.0); RBC 3.53 Mil/uL (4.40-5.90); RED CELL DISTRIBUTION WIDTH 13.1 % (11.5-14.5); WHITE BLOOD COUNT 11.6 K/uL (4.8-10.8)
--- NOTE | 2018-03-02 13:05 | CP.PCM.PN ---
Subjective - Date & Time of Evaluation Date of Evaluation: 03/02/18 Time of Evaluation: 10:00 - Subjective Subjective: Has minor rectal bleeding. Abdominal swelling improving. Objective - Vital Signs/Intake and Output Vital Signs (last 24 hours): Temp Pulse Resp BP Pulse Ox 98.0 F 74 20 155/76 H 95 03/02/18 08:25 03/02/18 08:36 03/02/18 08:25 03/02/18 08:36 03/02/18 11:22 - Medications Medications: Current Medications Acetaminophen (Tylenol 325mg Tab) 650 mg PO Q6 PRN PRN Reason: Fever >100.4 F Docusate Sodium (Colace) 100 mg PO BID [facility] Last Admin: 03/02/18 08:35 Dose: 100 mg Vancomycin HCl 1 gm/ Sodium (Chloride) 250 mls @ 166.667 mls/hr IVPB Q12H [facility] PRN Reason: Protocol Last Admin: 03/01/18 23:38 Dose: 166.667 mls/hr Metoprolol Succinate (Toprol Xl) 50 mg PO DAILY [facility] Last Admin: 03/02/18 08:36 Dose: 50 mg Oxycodone/Acetaminophen (Percocet 5/325 Mg Tab) 2 tab PO Q4 PRN PRN Reason: Pain, moderate (4-7) Stop: 03/03/18 11:30 Last Admin: 03/02/18 08:34 Dose: 2 tab Pantoprazole Sodium (Protonix Inj) 40 mg IVP BID [facility] Last Admin: 03/02/18 08:36 Dose: 40 mg Polyethylene Glycol (Miralax) 17 gm PO DAILY [facility] Last Admin: 03/02/18 08:35 Dose: 17 gm Valsartan (Diovan) 160 mg PO DAILY [facility] - Labs Labs: 03/02/18 10:55 02/27/18 23:19 PT 11.1 Seconds (9.8-13.1) 02/27/18 23:19 INR 1.0 (0.9-1.2) 02/27/18 23:19 APTT 27.3 Seconds (25.6-37.1) 02/27/18 23:19 - Head Exam Head Exam: ATRAUMATIC - Eye Exam Eye Exam: PERRL - ENT Exam ENT Exam: Normal Exam - Respiratory Exam Respiratory Exam: Clear to Ausculation Bilateral - Cardiovascular Exam Cardiovascular Exam: REGULAR RHYTHM, +S1, +S2 - GI/Abdominal Exam GI & Abdominal Exam: Soft. absent: Tenderness Assessment and Plan (1) Abnormal finding on CT scan Status: Acute (2) Rectal bleeding Assessment & Plan: Episodic rectal bleeding. Hgb remains stable. Should have colonoscopy as outpatient. Status: Acute
== END 2018-03-02 15:30 | disposition home or self-care (01) ==
LOC: H.ER 22:09 → H.ERHOLD 02-28 06:38 → H.MEDSURG1 02-28 10:14 → INTOOBSV 03-01 14:28 → OBSVTOIN 03-01 14:28
PROVIDERS: ADMIT Family Medicine; ATTEND Family Medicine
DX: K62.5 Hemorrhage of anus and rectum (principal); K29.70 Gastritis, unspecified, without bleeding; I10 Essential (primary) hypertension; E78.00 Pure hypercholesterolemia, unspecified; E78.5 Hyperlipidemia, unspecified; M19.90 Unspecified osteoarthritis, unspecified site; F17.200 Nicotine dependence, unspecified, uncomplicated
CPT/HCPCS: 36415; 74177; 80053; 85025; 85027; 85610; 85730; 86850; 86900; 96374; 99285; C9113; G0378; J7120; Q9966; Q9967

== ENCOUNTER 2018-03-12 18:36 | Emergency (ER) | payer MEDICAID ==
[2018-03-12 18:37] VITALS: BMI 32.5
[2018-03-12 18:48] VITALS: TEMP 98.1; O2SAT 99
[2018-03-12] MEDS ORDERED: Albuterol 0.083% Inhal Sol (2.5 mg/3 mL) UD INH ONE (20:26)
--- NOTE | 2018-03-12 20:41 | ED PDOC ---
HPI: SOB/CHF/COPD Time Seen by Provider: 03/12/18 18:40 Chief Complaint (Nursing): Shortness Of Breath Chief Complaint (Provider): Shortness Of Breath History Per: Patient History/Exam Limitations: no limitations Onset/Duration Of Symptoms: Days Current Symptoms Are (Timing): Still Present Additional Complaint(s): 52 year old male presents to the ED with complaints of cough for two days and shortness of breath for one day associated with sweats. Patient reports cough has know become productive. Patient has recently had umbilical hernia repair at [facility] on 02/17/2018. Denies fever, vomiting, and diarrhea. PMD: Dr. Dedrick Mendez Past Medical History Reviewed: Historical Data, Nursing Documentation, Vital Signs Vital Signs: Last Vital Signs Temp 98.1 F 03/12/18 18:46 Pulse 80 03/12/18 22:20 Resp 20 03/12/18 22:20 BP 139/88 03/12/18 22:20 Pulse Ox 99 03/12/18 23:15 - Medical History PMH: Arthritis, Bronchitis, HTN, Hypercholesterolemia Denies: Atrial Fibrillation, CAD, Chronic Kidney Disease - Surgical History Surgical History: Endoscopy, Hernia Repair (ventral on 02/17/2018) - Family History Family History: States: Unknown Family Hx - Social History Current smoker - smoking cessation education provided: No Alcohol: None Drugs: Denies - Immunization History Hx Influenza Vaccination: No - Home Medications Home Medications: Ambulatory Orders Medication Instructions Recorded Amoxicillin/Clavulanate [Augmentin 1 tab PO Q12 #10 tab 02/26/18 875 MG-125 MG Tab] Atorvastatin [Lipitor] 20 mg PO DAILY #30 tab 02/26/18 Lactobacillus Acidophilus [Bacid 1 cap PO BID #10 cap 02/26/18 Acidophilus] Metoprolol Succinate [Toprol XL] 50 mg PO DAILY #30 tab 02/26/18 Valsartan [Diovan] 160 mg PO DAILY #30 tab 02/26/18 Docusate [Colace] 100 mg PO BID #10 cap 03/02/18 Pantoprazole Sodium [Protonix] 40 mg PO BID #28 ect 03/02/18 Polyethylene Glycol 3350 [Miralax] 17 gm PO DAILY #30 packet 03/02/18 Albuterol 0.042% [Albuterol 0.042% 3 ml IH Q4H PRN #30 jamee 03/12/18 Inhal Jamee (1.25mg/3ml) UD] Azithromycin [Zithromax] 250 mg PO DAILY #6 tab 03/12/18 - Allergies Allergies/Adverse Reactions: Allergies Allergy/AdvReac Type Severity Reaction Status Date / Time No Known Allergies Allergy Verified 03/12/18 18:45 Wells Criteria for PE - Wells Criteria for Pulmonary Embolism Clinical Signs and Symptoms of DVT: No P.E is #1 Diagnosis, or Equally Likely: No Heart Rate >100: No Immobilization at least 3 days;Surgery previous 4 weeks: No Previous, objectively diagnosed PE or DVT: No Hemoptysis: No Malignancy w/treatment within 6 months, or palliative: No Total Score: 0 Review of Systems ROS Statement: Except As Marked, All Systems Reviewed And Found Negative Constitutional: Positive for: Sweats Respiratory: Positive for: Cough (productive), Shortness of Breath Physical Exam - Reviewed Nursing Documentation Reviewed: Yes Vital Signs Reviewed: Yes - Physical Exam Appears: Positive for: Non-toxic, No Acute Distress Head Exam: Positive for: ATRAUMATIC, NORMOCEPHALIC Skin: Positive for: Normal Color, Warm, Dry Eye Exam: Positive for: EOMI, Normal appearance, PERRL ENT: Positive for: Normal ENT Inspection Neck: Positive for: Normal, Painless ROM, Supple Cardiovascular/Chest: Positive for: Regular Rate, Rhythm. Negative for: Murmur Respiratory: Positive for: Normal Breath Sounds. Negative for: Respiratory Distress Gastrointestinal/Abdominal: Positive for: Normal Exam, Soft. Negative for: Tenderness Back: Positive for: Normal Inspection. Negative for: L CVA Tenderness, R CVA Tenderness, Vertebral Tenderness Extremity: Positive for: Normal ROM. Negative for: Pedal Edema, Deformity Neurologic/Psych: Positive for: Alert, Oriented - Laboratory Results Result Diagrams: 03/12/18 21:12 03/12/18 21:12 - ECG O2 Sat by Pulse Oximetry: 99 (RA) Pulse Ox Interpretation: Normal Medical Decision Making Medical Decision Making: Time: 2025 Plan: 52 yo m with cough and sob pts vitals are stable. pt appears to be comfortable and in no distress. -- CMP -- CBC with differentials -- CXR (two views) -- Peak flow Pre/Post Treatment Time: 2137 -- Patient is feeling better. X-Ray appear to not have lobar pneumonia. labs reviewed. -- Patient will be discharged home with abx and albuterol. Scribe Attestation: Documented by Yuli Gonslaves, acting as a scribe for Dr. Jessica Pelaez MD. Provider Scribe Attestation: All medical record entries made by the Scribe were at my direction and personally dictated by me. I have reviewed the chart and agree that the record accurately reflects my personal performance of the history, physical exam, medical decision making, and the department course for this patient. I have also personally directed, reviewed, and agree with the discharge instructions and disposition. Disposition - Clinical Impression Clinical Impression: Cough - Patient ED Disposition Is Patient to be Admitted: No Counseled Patient/Family Regarding: Studies Performed, Diagnosis, Need For Followup - Disposition Referrals: [facility] [Outside] [facility] [Outside] Disposition: Routine/Home Disposition Time: 20:00 Condition: IMPROVED Additional Instructions: follow up with your primary doctor in 1-2 days return to the ED with any worsening or concerning symptoms Prescriptions: Albuterol 0.042% [Albuterol 0.042% Inhal Jamee (1.25mg/3ml) UD] 3 ml IH Q4H PRN # 30 jamee PRN Reason: Cough Azithromycin [Zithromax] 250 mg PO DAILY #6 tab Instructions: Cough in Adults Forms: [facility] (Lao)
[2018-03-12 21:22] LABS: BASO # 0.1 K/uL (0.0-0.2); BASO % 1.3 % (0.0-2.0); EOS # 0.3 K/uL (0.0-0.7); EOS % 4.6 % (0.0-4.0); HEMOGLOBIN 10.4 g/dL (12.0-18.0); LYMPH # 1.8 K/uL (1.0-4.3); MEAN CORPUSCULAR HEMOGLOBIN 29.8 pg (27.0-31.0); MEAN CORPUSCULAR HGB CONC 33.9 g/dL (33.0-37.0); MEAN PLATELET VOLUME 6.7 fl (7.2-11.7); MONO # 0.9 K/uL (0.0-0.8); MONO % 14.6 % (0.0-10.0); NEUT # 2.9 K/uL (1.8-7.0); NEUT % 49.5 % (50.0-75.0); NRBC % 0.1 % (0.0-0.0); RBC 3.5 Mil/uL (4.40-5.90); RED CELL DISTRIBUTION WIDTH 13.5 % (11.5-14.5)
[2018-03-12] MEDS ORDERED: Albuterol 0.083% Inhal Sol (2.5 mg/3 mL) UD ONE (21:29)
[2018-03-12 21:32] LABS: ALB/GLOB RATIO 1.3 (1.0-2.1); ALBUMIN 3.7 g/dL (3.5-5.0); ALT/SGPT 49 U/L (21-72); AST/SGOT 31 U/L (17-59); BLOOD UREA NITROGEN 10 mg/dl (9-20); CALCIUM 8.3 mg/dL (8.4-10.2); GFR AFRICAN-AMERICAN > 60; GFR NON-AFRICAN AMERICAN > 60
[2018-03-12 22:20] VITALS: BP 139/88; PULSE 80; RESP 20
[2018-03-12 23:04] LABS: WHITE BLOOD COUNT 5.9 K/uL (4.8-10.8)
--- NOTE | 2018-03-13 06:28 | RAD ---
HISTORY: Cough. COMPARISON: 02/24/2018 TECHNIQUE: Chest PA and lateral FINDINGS: LUNGS: No active pulmonary disease. PLEURA: No significant pleural effusion identified. No pneumothorax apparent. CARDIOVASCULAR: No radiographic findings to suggest acute or significant cardiovascular disease. OSSEOUS STRUCTURES: No significant abnormalities. VISUALIZED UPPER ABDOMEN: Normal. OTHER FINDINGS: None. IMPRESSION: No active disease. No significant interval change compared to the prior examination(s). Concordant results with the preliminary interpretation rendered by the emergency department physician procedure.
== END 2018-03-12 22:20 | disposition home or self-care (01) ==
LOC: H.ER 18:36
DX: R05 Cough (principal); R06.02 Shortness of breath; E78.00 Pure hypercholesterolemia, unspecified; I10 Essential (primary) hypertension

== ENCOUNTER 2018-11-30 04:55 | Inpatient (IN) | payer MEDICAID ==
[2018-11-30 04:56] VITALS: BMI 31.0
[2018-11-30] MEDS ORDERED: Albuterol-Ipratrop 3 mg / 0.5 (3 ml) UD INH STA (05:28)
--- NOTE | 2018-11-30 05:33 | ED PDOC ---
HPI: CCC, URI, Sore Throat Time Seen by Provider: 11/30/18 05:03 Chief Complaint (Nursing): Chest Pain Chief Complaint (Provider): Cough/URI History Per: Patient History/Exam Limitations: no limitations Onset/Duration Of Symptoms: Days (x2) Current Symptoms Are (Timing): Still Present Location Of Pain: Sinus/es Additional Complaint(s): 53 y/o male with a PMHx of Dyslipidemia, Arthritis, Sinusitis, Bronchitis and HTN presents to the ED for evaluation of a cough associated with a sinus pressure and chest tightness, onset two days ago. Patient states cough is productive of greyish colored phlegm. Patient reports of having had two other sinus infections in the past year. Patient feels as if he is developing a new one. Of note, patient is an active smoker. Otherwise, patient denies fever, vomiting and diaphoresis. PMD: Dedrick Mendez Past Medical History Reviewed: Historical Data, Nursing Documentation, Vital Signs Vital Signs: Last Vital Signs Temp 97.6 F 11/30/18 05:11 Pulse 98 H 11/30/18 05:11 Resp 18 11/30/18 05:11 BP 173/102 H 11/30/18 05:11 Pulse Ox 95 11/30/18 05:11 - Medical History PMH: Anxiety, Arthritis, Bronchitis, HTN, Hypercholesterolemia Denies: Atrial Fibrillation, CAD, Chronic Kidney Disease Other PMH: Sinusitis - Surgical History Surgical History: Endoscopy, Hernia Repair (ventral on 02/17/2018) - Family History Family History: States: Unknown Family Hx - Social History Current smoker - smoking cessation education provided: Yes - Immunization History Hx Influenza Vaccination: No - Home Medications Home Medications: Ambulatory Orders Medication Instructions Recorded RX: Losartan/Hydrochlorothiazide 100 mg PO DAILY 11/30/18 [Losartan-Hctz 100-25 mg Tab] RX: Metoprolol Succinate [Toprol 50 mg PO DAILY 11/30/18 Xl] RX: Omeprazole 20 mg PO DAILY 11/30/18 Promethazine DM [Phenergan DM 5 ml PO Q6 PRN #250 ml 12/02/18 Syrup] RX: Albuterol HFA [Ventolin HFA 90 2 puff IH [id number] #1 puff 12/02/18 mcg/actuation (8 g)] RX: Ibuprofen [Motrin Tab] 600 mg PO Q6 PRN #20 tab 12/02/18 RX: guaiFENesin [Mucinex LA] 1,200 mg PO Q12 #20 tab 12/02/18 - Allergies Allergies/Adverse Reactions: Allergies Allergy/AdvReac Type Severity Reaction Status Date / Time No Known Allergies Allergy Verified 11/30/18 05:10 Review of Systems ROS Statement: Except As Marked, All Systems Reviewed And Found Negative Constitutional: Positive for: Other (sinus pressure). Negative for: Fever, Sweats Cardiovascular: Positive for: Chest Pain Respiratory: Positive for: Cough Gastrointestinal: Negative for: Vomiting Physical Exam - Reviewed Nursing Documentation Reviewed: Yes Vital Signs Reviewed: Yes - Physical Exam Appears: Positive for: Uncomfortable Head Exam: Positive for: ATRAUMATIC, NORMOCEPHALIC Skin: Positive for: Normal Color, Warm, Dry Eye Exam: Positive for: Normal appearance, EOMI, PERRL Neck: Positive for: Normal, Painless ROM, Supple Cardiovascular/Chest: Positive for: Regular Rate, Rhythm. Negative for: Murmur Respiratory: Positive for: Decreased Breath Sounds (Decreased air entry at the bases) Gastrointestinal/Abdominal: Positive for: Normal Exam, Soft. Negative for: Tenderness Back: Positive for: Normal Inspection. Negative for: L CVA Tenderness, R CVA Tenderness Extremity: Positive for: Normal ROM. Negative for: Pedal Edema, Deformity Neurologic/Psych: Positive for: Alert, Oriented. Negative for: Motor/Sensory Deficits - Laboratory Results Result Diagrams: 12/02/18 05:35 12/02/18 05:35 - ECG ECG Rhythm: Positive for: Sinus Rhythm Rate: 99 O2 Sat by Pulse Oximetry: 95 (RA) Pulse Ox Interpretation: Normal Medical Decision Making Medical Decision Making: Time: 527 Impression: 53 y/o male with productive cough and flu-like symptoms Plan: -- EKG -- CXR Two Views -- Duoneb 3mg/0.5mg 3 ml (UD) 3 ml INH -- Peak flow Pre/Post Tx -- Influenza A B Time: 06 -- CXR as read by MD shows bilateral pneumonia. Will order labs for further management, pending official CXR read. -- BNP -- CMP -- Lact Acid, Plasma -- Troponin I -- CBC with differentials -- Rocephin 1000 mg Ped IV Syringe 1 syr IV -- Blood Culture -- Heplock Insertion Time: 616 CXR RESULTS Findings: There is interval appearance of bilateral lower lobes airspace infiltrates. The lungs are expanded. There is bilateral peribronchial interstitial thickening suggestive of bronchitis. There is no demonstrated pleural abnormality. Normal heart and pericardium. Normal mediastinum and orly. Normal visualized pulmonary arteries. Normal visualized aortic arch and descending thoracic aorta. Normal visualized thoracic spine. Normal visualized ribs, clavicles, and shoulders. There is no demonstrated abnormality of the visualized soft tissue structures of the upper abdomen. IMPRESSION: Bronchitis. Interval appearance of bilateral lower lobes airspace infiltrates, probably multifocal bronchopneumonia. Electronically signed on Nov 30, 2018 6:17:33 AM EST by: David Plaza M.D., Certified by JONE, MSK, Neuroradiology Time: 07 -Patient will be admitted as d/w C Meron Dx Pneumonia Fair Scribe Attestation: Documented by Yuli Gonsalves, acting as a scribe for Luis Angel Aponte MD. Provider Scribe Attestation: All medical record entries made by the Scribe were at my direction and personally dictated by me. I have reviewed the chart and agree that the record accurately reflects my personal performance of the history, physical exam, medical decision making, and the department course for this patient. I have also personally directed, reviewed, and agree with the discharge instructions and disposition. Disposition - Clinical Impression Clinical Impression: Pneumonia - Patient ED Disposition Is Patient to be Admitted: Yes - Disposition Disposition Time: 07:00 Condition: FAIR Patient Signed Over To: Chi Rojas Handoff Comments: pending labs, re-evaluation and final ER disposition. - Pt Status Changed To: Hospital Disposition Of: Inpatient - Admit Certification Admit to Inpatient:: After my assessment, the patient will require hospitalization for at least two midnights. This is because of the severity of symptoms shown, intensity of services needed, and/or the medical risk in this patient being treated as an outpatient.
[2018-11-30] MEDS ORDERED: Albuterol-Ipratrop 3 mg / 0.5 (3 ml) UD ONE (05:39)
[2018-11-30] MEDS ORDERED: Azithromycin 500 MG in Sodium Chloride 0.9% 250 ML IVPB STA (06:00)
[2018-11-30] MEDS ORDERED: Azithromycin 500 MG IV IVPB ONE (06:05)
[2018-11-30 06:35] LABS: BASO # 0.1 K/uL (0.0-0.2); BASO % 0.7 % (0.0-2.0); EOS # 0.1 K/uL (0.0-0.7); EOS % 0.7 % (0.0-4.0); HEMOGLOBIN 13.3 g/dL (12.0-18.0); LYMPH # 1.1 K/uL (1.0-4.3); LYMPH % 8.3 % (20.0-40.0); MEAN CELL VOLUME 90.9 fl (80.0-94.0); MEAN CORPUSCULAR HEMOGLOBIN 30.9 pg (27.0-31.0); MEAN PLATELET VOLUME 6.8 fl (7.2-11.7); MONO # 0.9 K/uL (0.0-0.8); MONO % 7.4 % (0.0-10.0); NEUT # 10.6 K/uL (1.8-7.0); NEUT % 82.9 % (50.0-75.0); PLATELET COUNT 379 K/uL (130-400); RBC 4.29 Mil/uL (4.40-5.90); RED CELL DISTRIBUTION WIDTH 13.6 % (11.5-14.5); WHITE BLOOD COUNT 12.8 K/uL (4.8-10.8)
[2018-11-30 06:50] LABS: ALB/GLOB RATIO 1.3 (1.0-2.1); ALBUMIN 3.9 g/dL (3.5-5.0); ALT/SGPT 88 U/L (21-72); AST/SGOT 73 U/L (17-59); BLOOD UREA NITROGEN 9 mg/dl (9-20); CALCIUM 8.6 mg/dL (8.4-10.2); GFR NON-AFRICAN AMERICAN > 60
[2018-11-30 07:01] LABS: B-TYPE NATRIURETIC PEPTIDE 964 pg/ml (0-900)
[2018-11-30] MEDS: Pantoprazole 20 mg EC Tab PO SCH (09:00)
--- NOTE | 2018-11-30 09:01 | CP.PCM.HP ---
History of Present Illness - History of Present Illness History of Present Illness: pt admitted for b/l pna-cxr w/ b/l infiltrate. was in [facility] for same complaint. no f/c n/v/d. at prsent. bw noted. cxr noted. Present on Admission - Present on Admission Any Indicators Present on Admission: No Review of Systems - Respiratory Respiratory: As Per HPI, Cough, Dyspnea, Chest Congestion Past Patient History - Infectious Disease Hx of Infectious Diseases: None - Past Medical History & Family History Past Medical History?: Yes - Past Social History Smoking Status: Light Smoker < 10 Cigarettes Daily - CARDIAC Hx Atrial Fibrillation: No Hx Hypercholesterolemia: Yes Hx Hypertension: Yes - PULMONARY Hx Bronchitis: Yes - HEENT Hx HEENT Problems: No - RENAL Hx Chronic Kidney Disease: No - INTEGUMENTARY Hx Dermatological Problems: No - MUSCULOSKELETAL/RHEUMATOLOGICAL Hx Arthritis: Yes - PSYCHIATRIC Hx Anxiety: Yes - ANESTHESIA Hx Anesthesia: Yes Hx Anesthesia Reactions: No Meds Allergies/Adverse Reactions: Allergies Allergy/AdvReac Type Severity Reaction Status Date / Time No Known Allergies Allergy Verified 11/30/18 05:10 Physical Exam - Constitutional Appears: Well, Non-toxic, No Acute Distress - Head Exam Head Exam: ATRAUMATIC, NORMAL INSPECTION, NORMOCEPHALIC - Eye Exam Eye Exam: EOMI, Normal appearance, PERRL Pupil Exam: NORMAL ACCOMODATION, PERRL - ENT Exam ENT Exam: Mucous Membranes Moist, Normal Exam - Neck Exam Neck exam: Positive for: Normal Inspection - Respiratory Exam Respiratory Exam: Clear to Auscultation Bilateral, Rhonchi Additional comments: b/l bases - Cardiovascular Exam Cardiovascular Exam: REGULAR RHYTHM, RRR, +S1, +S2 - GI/Abdominal Exam GI & Abdominal Exam: Normal Bowel Sounds, Soft. absent: Tenderness - Extremities Exam Extremities exam: Positive for: full ROM, normal capillary refill, normal inspection, pedal pulses present - Back Exam Back exam: FULL ROM, NORMAL INSPECTION - Neurological Exam Neurological exam: Alert, CN II-XII Intact, Normal Gait, Oriented x3, Reflexes Normal - Psychiatric Exam Psychiatric exam: Normal Affect, Normal Mood - Skin Skin Exam: Dry, Intact, Normal Color, Warm Results - Vital Signs Recent Vital Signs: Last Vital Signs Temp 97.6 F 11/30/18 05:11 Pulse 99 H 11/30/18 07:04 Resp 20 11/30/18 07:33 BP 173/102 H 11/30/18 05:11 Pulse Ox 95 11/30/18 07:04 - Labs Result Diagrams: 11/30/18 06:12 11/30/18 06:12 Labs: Laboratory Results - last 24 hr 11/30/18 11/30/18 11/30/18 06:10 06:12 06:12 WBC 12.8 H D RBC 4.29 L Hgb 13.3 D Hct 39.0 MCV 90.9 D MCH 30.9 MCHC 34.0 RDW 13.6 Plt Count 379 MPV 6.8 L Neut % (Auto) 82.9 H Lymph % (Auto) 8.3 L [place] % (Auto) 7.4 Eos % (Auto) 0.7 Baso % (Auto) 0.7 Neut # (Auto) 10.6 H Lymph # (Auto) 1.1 [place] # (Auto) 0.9 H Eos # (Auto) 0.1 Baso # (Auto) 0.1 Sodium 135 Potassium 3.5 L Chloride 96 L Carbon Dioxide 26 Anion Gap 17 BUN 9 Creatinine 0.8 Est GFR ( Amer) > 60 Est GFR (Non-Af Amer) > 60 Random Glucose 115 H Lactic Acid Calcium 8.6 Total Bilirubin 0.6 AST 73 H D ALT 88 H D Alkaline Phosphatase 73 Troponin I < 0.0120 NT-Pro-B Natriuret Pep 964 H Total Protein 6.9 Albumin 3.9 Globulin 3.0 Albumin/Globulin Ratio 1.3 Influenza Typ A,B (EIA) Negative for flu a/b 11/30/18 06:12 WBC RBC Hgb Hct MCV MCH MCHC RDW Plt Count MPV Neut % (Auto) Lymph % (Auto) [place] % (Auto) Eos % (Auto) Baso % (Auto) Neut # (Auto) Lymph # (Auto) [place] # (Auto) Eos # (Auto) Baso # (Auto) Sodium Potassium Chloride Carbon Dioxide Anion Gap BUN Creatinine Est GFR ( Amer) Est GFR (Non-Af Amer) Random Glucose Lactic Acid 2.7 H Calcium Total Bilirubin AST ALT Alkaline Phosphatase Troponin I NT-Pro-B Natriuret Pep Total Protein Albumin Globulin Albumin/Globulin Ratio Influenza Typ A,B (EIA) Assessment & Plan (1) DVT prophylaxis Assessment and Plan: scd and aeh ose ambulation Status: Acute (2) Pneumonia Assessment and Plan: cap, bacterial, unkn surce/bacterium rocephin, zithromax, albuterol, phenergen, mucinex tylenol prn Status: Acute (3) Hypertension Status: Chronic Decision To Admit - Pt Status Changed To: Hospital Disposition Of: Inpatient - Admit Certification Admit to Inpatient:: After my assessment, the patient will require hospitalization for at least two midnights. This is because of the severity of symptoms shown, intensity of services needed, and/or the medical risk in this patient being treated as an outpatient. - . Bed Request Type: Med/Surg Admitting Physician: Zoran Aguirre
--- NOTE | 2018-11-30 09:12 | CARD ---
APPROVED REPORT Date of service: 11/30/2018 EKG Measurement Heart [id number] <Conclusion> Normal sinus rhythm Possible Left atrial enlargement Borderline ECG
[2018-11-30] MEDS: guaiFENesin 600 mg ER Tab PO SCH ×2 (10:00→21:03)
[2018-11-30 11:10] LABS: LYMPHOCYTE 9 % (20-50); MONOCYTE 6 % (0-10); NEUTROPHIL 85 % (42-75); PLATELET ESTIMATE NORMAL (NORMAL); TOTAL CELLS COUNTED 100
--- NOTE | 2018-11-30 11:38 | RAD ---
Date of service: 11/30/2018 HISTORY: cough COMPARISON: No at 03/12/2018 TECHNIQUE: Chest PA and lateral FINDINGS: LUNGS: Diffuse reticular interstitial infiltrate. No consolidation. No pulmonary mass identified. This represents interval change from the prior examination. This may reflect interstitial pulmonary edema or interstitial pneumonitis. PLEURA: No significant pleural effusion identified. No pneumothorax apparent. CARDIOVASCULAR: No aortic atherosclerotic calcification present. Normal cardiac size. No pulmonary vascular congestion. OSSEOUS STRUCTURES: No significant abnormalities. VISUALIZED UPPER ABDOMEN: Normal. OTHER FINDINGS: None. IMPRESSION: Diffuse interstitial infiltrate. Interstitial pneumonitis versus interstitial pulmonary edema. No significant congestive change and no pleural effusion or halima pulmonary edema.
[2018-11-30] MEDS: HCTZ/Losartan 12.5/50 Tab PO SCH (11:58)
[2018-11-30] MEDS: Promethazine DM 12.5 mg-30 mg/10 ml Syrup PO PRN ×2 (11:58→17:46)
[2018-11-30] MEDS: Metoprolol Succinate 50 mg XL Tab PO SCH (11:59)
[2018-11-30] MEDS: Albuterol-Ipratrop 3 mg / 0.5 (3 ml) UD INH SCH ×2 (15:09→19:12)
[2018-11-30 16:19] LABS: SQUAMOUS EPITHIAL < 1 /hpf (0-5); URINE BILIRUBIN NEGATIVE (NEGATIVE); URINE BLOOD NEGATIVE (NEGATIVE); URINE CLARITY CLEAR (Clear); URINE COLOR STRAW (YELLOW); URINE GLUCOSE (UA) NEG (NEGATIVE); URINE LEUKOCYTE ESTERASE NEG Leu/uL (Negative); URINE PROTEIN NEGATIVE (NEGATIVE); URINE UROBILINOGEN 0.2-1.0 mg/dL (0.2-1.0)
[2018-11-30 16:24] LABS: BARBITURATES, UR NEGATIVE (NEGATIVE); BENZODIAZEPINES, UR NEGATIVE (NEGATIVE); OPIATES, UR NEGATIVE (NEGATIVE); PHENCYCLIDINE, UR NEGATIVE (NEGATIVE)
[2018-11-30] MEDS: Azithromycin 500 MG in Sodium Chloride 0.9% 250 ML IVPB SCH (17:47)
[2018-12-01 06:45] LABS: HEMOGLOBIN 13.1 g/dL (12.0-18.0); MEAN CELL VOLUME 90.1 fl (80.0-94.0); MEAN CORPUSCULAR HEMOGLOBIN 32.1 pg (27.0-31.0); MEAN CORPUSCULAR HGB CONC 35.6 g/dL (33.0-37.0); RBC 4.07 Mil/uL (4.40-5.90); RED CELL DISTRIBUTION WIDTH 13.6 % (11.5-14.5); WHITE BLOOD COUNT 10.2 K/uL (4.8-10.8)
[2018-12-01 07:15] LABS: ALB/GLOB RATIO 1.2 (1.0-2.1); ALBUMIN 3.7 g/dL (3.5-5.0); ALT/SGPT 59 U/L (21-72); AST/SGOT 33 U/L (17-59); BLOOD UREA NITROGEN 10 mg/dl (9-20); CALCIUM 8.4 mg/dL (8.4-10.2); GFR NON-AFRICAN AMERICAN > 60
[2018-12-01] MEDS: Albuterol-Ipratrop 3 mg / 0.5 (3 ml) UD INH SCH ×4 (07:27→19:04)
[2018-12-01] MEDS: Azithromycin 500 MG in Sodium Chloride 0.9% 250 ML IVPB SCH (08:47)
[2018-12-01] MEDS: Metoprolol Succinate 50 mg XL Tab PO SCH (08:48)
[2018-12-01] MEDS: Pantoprazole 20 mg EC Tab PO SCH (08:48)
[2018-12-01] MEDS: guaiFENesin 600 mg ER Tab PO SCH ×2 (08:49→22:22)
[2018-12-01] MEDS: HCTZ/Losartan 12.5/50 Tab PO SCH (08:51)
[2018-12-01] MEDS ORDERED: Potassium Chloride 20 mEq ER Tab PO ONE (08:53)
--- NOTE | 2018-12-01 09:28 | US ---
Date of service: 12/01/2018 HISTORY: elev lft COMPARISON: None. TECHNIQUE: Sonographic evaluation of the right upper quadrant of the abdomen. FINDINGS: LIVER: Measures 19.2 cm in length. Diffusely increased echogenicity of the liver parenchyma. Consistent with fatty infiltration. Multiple circumscribed hypoechoic lesions are seen within the liver. Largest is in the left lobe, measuring 3.8 x 5.3 x 5.4 cm. Adjacent to the gallbladder fossa there are 2 such lesions measuring 2.4 x 2.6 x 1.1 cm and 2.2 x 1.3 x 1.9 cm. Most likely, these represent areas of focal fatty. Consideration should be given to confirmation of this finding with magnetic resonance imaging including opposed phase and fat saturation images. No biliary ductal dilatation. Smooth contour. GALLBLADDER: No mural thickening. No cholelithiasis. No pericholecystic fluid. Negative sonographic Vega sign. COMMON BILE DUCT: Measures 3 mm. No stones. No dilatation. PANCREAS: Unremarkable as visualized. RIGHT KIDNEY: Measures 11.8 cm in length. Normal echogenicity. No calculus, mass, or hydronephrosis. AORTA: No aneurysm IVC: Unremarkable. OTHER FINDINGS: None . IMPRESSION: Fatty infiltration of the liver. Three circumscribed areas of decreased echogenicity likely representing areas of focal fatty sparing. Consider further evaluation with magnetic resonance imaging to confirm this hypothesis. No evidence of biliary obstruction. Otherwise unremarkable.
--- NOTE | 2018-12-01 13:10 | CP.PCM.PN ---
Subjective - Date & Time of Evaluation Date of Evaluation: 12/01/18 Time of Evaluation: 13:08 - Subjective Subjective: pt doing well. no f/c, n/v/d. still w/ congestion/cough. liver us completed w/ fatty liver demonstrated pt w/ tremor. admits to being on drinking binge since harmeet time Objective - Vital Signs/Intake and Output Vital Signs (last 24 hours): Temp Pulse Resp BP Pulse Ox 98.7 F 89 18 143/90 94 L 12/01/18 08:07 12/01/18 08:07 12/01/18 08:07 12/01/18 08:07 12/01/18 08:07 - Medications Medications: Current Medications Acetaminophen (Tylenol 325mg Tab) 650 mg PO Q4 PRN PRN Reason: Fever >100.4 F/pain 1-3 Albuterol/Ipratropium (Duoneb 3 Mg/0.5 Mg (3 Ml) Ud) 3 ml INH RQID [facility] Last Admin: 12/01/18 11:23 Dose: 3 ml Chlordiazepoxide (Librium) 25 mg PO Q6 [facility] Guaifenesin (Mucinex La) 1,200 mg PO Q12 [facility] Last Admin: 12/01/18 08:49 Dose: 1,200 mg HCTZ/Losartan Potassium (Hyzaar 12.5 Mg-50 Mg) 2 tab PO DAILY [facility] Last Admin: 12/01/18 08:51 Dose: 2 tab Ceftriaxone Sodium 1 gm/ (Sodium Chloride) 100 mls @ 100 mls/hr IVPB DAILY [facility]; Protocol Last Admin: 12/01/18 08:46 Dose: 100 mls/hr Azithromycin 500 mg/ Sodium (Chloride) 250 mls @ 250 mls/hr IVPB DAILY [facility]; Protocol Last Admin: 12/01/18 08:47 Dose: 250 mls/hr Ibuprofen (Motrin Tab) 600 mg PO Q6 PRN PRN Reason: Pain, moderate (4-7) Last Admin: 11/30/18 09:31 Dose: 600 mg Ketorolac Tromethamine (Toradol) 15 mg IVP Q6 PRN PRN Reason: Pain, severe (8-10) Last Admin: 11/30/18 20:55 Dose: 15 mg Metoprolol Succinate (Toprol Xl) 50 mg PO DAILY [facility] Last Admin: 12/01/18 08:48 Dose: 50 mg Pantoprazole Sodium (Protonix Ec Tab) 20 mg PO DAILY [facility] Last Admin: 12/01/18 08:48 Dose: 20 mg Promethazine HCl/Dextromethorphan (Phenergan Dm Syrup) 10 ml PO Q6 PRN PRN Reason: Cough Last Admin: 11/30/18 17:46 Dose: 10 ml - Labs Labs: 12/01/18 05:50 12/01/18 05:50 - Constitutional Appears: Well, Non-toxic, No Acute Distress - Head Exam Head Exam: ATRAUMATIC, NORMAL INSPECTION, NORMOCEPHALIC - Eye Exam Eye Exam: EOMI, Normal appearance, PERRL Pupil Exam: NORMAL ACCOMODATION, PERRL - ENT Exam ENT Exam: Mucous Membranes Moist, Normal Exam - Neck Exam Neck Exam: Full ROM, Normal Inspection. absent: Lymphadenopathy - Respiratory Exam Respiratory Exam: Clear to Ausculation Bilateral, NORMAL BREATHING PATTERN - Cardiovascular Exam Cardiovascular Exam: REGULAR RHYTHM, RRR, +S1, +S2. absent: Murmur - GI/Abdominal Exam GI & Abdominal Exam: Soft, Normal Bowel Sounds. absent: Tenderness - Exam Exam: Circumcision - Extremities Exam Extremities Exam: Full ROM, Normal Capillary Refill, Normal Inspection. absent: Joint Swelling, Pedal Edema - Back Exam Back Exam: NORMAL INSPECTION - Neurological Exam Neurological Exam: Alert, Awake, CN II-XII Intact, Normal Gait, Oriented x3 - Psychiatric Exam Psychiatric exam: Normal Affect, Normal Mood - Skin Skin Exam: Dry, Intact, Normal Color, Warm Assessment and Plan (1) DVT prophylaxis Status: Acute (2) Pneumonia Status: Acute (3) Hypertension Status: Chronic - Assessment and Plan (Free Text) Assessment: (1) DVT prophylaxis Assessment and Plan: scd and aeh ose ambulation Status: Acute (2) Pneumonia Assessment and Plan: cap, bacterial, unkn surce/bacterium rocephin, zithromax, albuterol, phenergen, mucinex tylenol prn Status: Acute (3) Hypertension cont home meds Status: Chronic [id number] abuse-librium, monitor for worsening s/s
[2018-12-01] MEDS: Promethazine DM 12.5 mg-30 mg/10 ml Syrup PO PRN (22:22)
[2018-12-02 06:03] LABS: MEAN CELL VOLUME 90.2 fl (80.0-94.0); MEAN CORPUSCULAR HEMOGLOBIN 31.7 pg (27.0-31.0); MEAN CORPUSCULAR HGB CONC 35.2 g/dL (33.0-37.0); RBC 4.09 Mil/uL (4.40-5.90); RED CELL DISTRIBUTION WIDTH 13.2 % (11.5-14.5); WHITE BLOOD COUNT 5.1 K/uL (4.8-10.8)
[2018-12-02 06:32] LABS: ALB/GLOB RATIO 1.2 (1.0-2.1); ALBUMIN 3.6 g/dL (3.5-5.0); ALT/SGPT 49 U/L (21-72); AST/SGOT 25 U/L (17-59); BLOOD UREA NITROGEN 9 mg/dl (9-20); CALCIUM 8.7 mg/dL (8.4-10.2); GFR NON-AFRICAN AMERICAN > 60
[2018-12-02] MEDS: Albuterol-Ipratrop 3 mg / 0.5 (3 ml) UD INH SCH ×4 (07:31→19:46)
[2018-12-02] MEDS: Azithromycin 500 MG in Sodium Chloride 0.9% 250 ML IVPB SCH (08:17)
[2018-12-02] MEDS: Pantoprazole 20 mg EC Tab PO SCH (08:18)
[2018-12-02] MEDS: guaiFENesin 600 mg ER Tab PO SCH ×2 (08:18→21:14)
[2018-12-02] MEDS: Metoprolol Succinate 50 mg XL Tab PO SCH (08:19)
[2018-12-02] MEDS: HCTZ/Losartan 12.5/50 Tab PO SCH (08:19)
--- NOTE | 2018-12-02 08:35 | CP.PCM.PN ---
Subjective - Date & Time of Evaluation Date of Evaluation: 12/02/18 Time of Evaluation: 08:32 - Subjective Subjective: pt doing well. still w/ cough/congestion/viera. no f/c, n/v/d. bw noted. no tremor noted Objective - Vital Signs/Intake and Output Vital Signs (last 24 hours): Temp Pulse Resp BP Pulse Ox 97.5 F L 101 H 20 154/92 H 97 12/02/18 08:25 12/02/18 08:25 12/02/18 08:25 12/02/18 08:25 12/02/18 08:25 - Medications Medications: Current Medications Acetaminophen (Tylenol 325mg Tab) 650 mg PO Q4 PRN PRN Reason: Fever >100.4 F/pain 1-3 Albuterol/Ipratropium (Duoneb 3 Mg/0.5 Mg (3 Ml) Ud) 3 ml INH RQID [facility] Last Admin: 12/02/18 07:31 Dose: 3 ml Chlordiazepoxide (Librium) 25 mg PO Q6 [facility] Last Admin: 12/02/18 05:16 Dose: 25 mg Guaifenesin (Mucinex La) 1,200 mg PO Q12 [facility] Last Admin: 12/02/18 08:18 Dose: 1,200 mg HCTZ/Losartan Potassium (Hyzaar 12.5 Mg-50 Mg) 2 tab PO DAILY [facility] Last Admin: 12/02/18 08:19 Dose: 2 tab Ceftriaxone Sodium 1 gm/ (Sodium Chloride) 100 mls @ 100 mls/hr IVPB DAILY [facility]; Protocol Last Admin: 12/02/18 08:16 Dose: 100 mls/hr Azithromycin 500 mg/ Sodium (Chloride) 250 mls @ 250 mls/hr IVPB DAILY [facility]; Protocol Last Admin: 12/02/18 08:17 Dose: 250 mls/hr Ibuprofen (Motrin Tab) 600 mg PO Q6 PRN PRN Reason: Pain, moderate (4-7) Last Admin: 12/01/18 22:23 Dose: 600 mg Ketorolac Tromethamine (Toradol) 15 mg IVP Q6 PRN PRN Reason: Pain, severe (8-10) Last Admin: 11/30/18 20:55 Dose: 15 mg Metoprolol Succinate (Toprol Xl) 50 mg PO DAILY [facility] Last Admin: 12/02/18 08:19 Dose: 50 mg Pantoprazole Sodium (Protonix Ec Tab) 20 mg PO DAILY [facility] Last Admin: 12/02/18 08:18 Dose: 20 mg Promethazine HCl/Dextromethorphan (Phenergan Dm Syrup) 10 ml PO Q6 PRN PRN Reason: Cough Last Admin: 12/01/18 22:22 Dose: 10 ml - Labs Labs: 12/02/18 05:35 12/02/18 05:35 - Constitutional Appears: Well, Non-toxic, No Acute Distress - Head Exam Head Exam: ATRAUMATIC, NORMAL INSPECTION, NORMOCEPHALIC - Eye Exam Eye Exam: EOMI, Normal appearance, PERRL Pupil Exam: NORMAL ACCOMODATION, PERRL - ENT Exam ENT Exam: Mucous Membranes Moist, Normal Exam - Neck Exam Neck Exam: Full ROM, Normal Inspection. absent: Lymphadenopathy - Respiratory Exam Respiratory Exam: Clear to Ausculation Bilateral, NORMAL BREATHING PATTERN - Cardiovascular Exam Cardiovascular Exam: REGULAR RHYTHM, RRR, +S1, +S2. absent: Murmur - GI/Abdominal Exam GI & Abdominal Exam: Soft, Normal Bowel Sounds. absent: Tenderness - Extremities Exam Extremities Exam: Full ROM, Normal Capillary Refill, Normal Inspection. absent: Joint Swelling, Pedal Edema - Back Exam Back Exam: NORMAL INSPECTION - Neurological Exam Neurological Exam: Alert, Awake, CN II-XII Intact, Normal Gait, Oriented x3 - Psychiatric Exam Psychiatric exam: Normal Affect, Normal Mood - Skin Skin Exam: Dry, Intact, Normal Color, Warm Assessment and Plan (1) DVT prophylaxis Status: Acute (2) Pneumonia Status: Acute (3) Hypertension Status: Chronic - Assessment and Plan (Free Text) Assessment: (1) DVT prophylaxis Assessment and Plan: scd and aeh ose ambulation Status: Acute (2) Pneumonia Assessment and Plan: cap, bacterial, unkn surce/bacterium rocephin, zithromax, albuterol, phenergen, mucinex tylenol prn appearst improved Status: Acute (3) Hypertension cont home meds Status: Chronic [id number] abuse-librium, monitor for worsening s/s. improved today
[2018-12-03 07:04] LABS: BASO # 0.1 K/uL (0.0-0.2); EOS # 0.2 K/uL (0.0-0.7); EOS % 3.3 % (0.0-4.0); HEMOGLOBIN 13.2 g/dL (12.0-18.0); LYMPH # 1.4 K/uL (1.0-4.3); LYMPH % 19.1 % (20.0-40.0); MEAN CELL VOLUME 93.4 fl (80.0-94.0); MEAN CORPUSCULAR HEMOGLOBIN 30.8 pg (27.0-31.0); MEAN PLATELET VOLUME 7.3 fl (7.2-11.7); MONO # 0.9 K/uL (0.0-0.8); MONO % 13.1 % (0.0-10.0); NEUT # 4.6 K/uL (1.8-7.0); NEUT % 63.5 % (50.0-75.0); NRBC % 0.1 % (0.0-0.0); RBC 4.29 Mil/uL (4.40-5.90); RED CELL DISTRIBUTION WIDTH 13.5 % (11.5-14.5); WHITE BLOOD COUNT 7.2 K/uL (4.8-10.8)
[2018-12-03 07:12] LABS: ALB/GLOB RATIO 1.2 (1.0-2.1); ALBUMIN 3.8 g/dL (3.5-5.0); ALT/SGPT 43 U/L (21-72); AST/SGOT 27 U/L (17-59); BLOOD UREA NITROGEN 9 mg/dl (9-20); CALCIUM 9.1 mg/dL (8.4-10.2); GFR NON-AFRICAN AMERICAN > 60
[2018-12-03] MEDS: Albuterol-Ipratrop 3 mg / 0.5 (3 ml) UD INH SCH ×2 (07:30→11:35)
--- NOTE | 2018-12-03 08:46 | CP.PCM.DIS ---
Provider - Provider Date of Admission: 11/30/18 07:02 Attending physician: Zoran Aguirre MD Time Spent in preparation of Discharge (in minutes): 15 Diagnosis - Discharge Diagnosis (1) DVT prophylaxis Status: Acute (2) Pneumonia Status: Acute (3) Hypertension Status: Chronic Hospital Course - Lab Results Lab Results: Micro Results 11/30/18 06:12 Blood-Venous Blood Culture - Preliminary NO GROWTH AFTER 3 DAYS 11/30/18 06:25 Blood-Venous Blood Culture - Preliminary NO GROWTH AFTER 3 DAYS 11/30/18 15:26 Urine,Clean Catch Urine Culture - Final No Growth (<1,000 CFU/ML) Most Recent Lab Values WBC 7.2 K/uL (4.8-10.8) 12/03/18 06:15 RBC 4.29 Mil/uL (4.40-5.90) L 12/03/18 06:15 Hgb 13.2 g/dL (12.0-18.0) 12/03/18 06:15 Hct 40.1 % (35.0-51.0) 12/03/18 06:15 MCV 93.4 fl (80.0-94.0) D 12/03/18 06:15 MCH 30.8 pg (27.0-31.0) 12/03/18 06:15 MCHC 33.0 g/dL (33.0-37.0) 12/03/18 06:15 RDW 13.5 % (11.5-14.5) 12/03/18 06:15 Plt Count 357 K/uL (130-400) 12/03/18 06:15 MPV 7.3 fl (7.2-11.7) 12/03/18 06:15 Neut % (Auto) 63.5 % (50.0-75.0) 12/03/18 06:15 Lymph % (Auto) 19.1 % (20.0-40.0) L 12/03/18 06:15 [place] % (Auto) 13.1 % (0.0-10.0) H 12/03/18 06:15 Eos % (Auto) 3.3 % (0.0-4.0) 12/03/18 06:15 Baso % (Auto) 1.0 % (0.0-2.0) 12/03/18 06:15 Neut # (Auto) 4.6 K/uL (1.8-7.0) 12/03/18 06:15 Lymph # (Auto) 1.4 K/uL (1.0-4.3) 12/03/18 06:15 [place] # (Auto) 0.9 K/uL (0.0-0.8) H 12/03/18 06:15 Eos # (Auto) 0.2 K/uL (0.0-0.7) 12/03/18 06:15 Baso # (Auto) 0.1 K/uL (0.0-0.2) 12/03/18 06:15 Neutrophils % (Manual) 85 % (42-75) H 11/30/18 06:12 Lymphocytes % (Manual) 9 % (20-50) L 11/30/18 06:12 Monocytes % (Manual) 6 % (0-10) 11/30/18 06:12 Platelet Estimate Normal (NORMAL) 11/30/18 06:12 RBC Morphology Normal (NORMAL) 11/30/18 06:12 Sodium 135 mmol/l (132-148) 12/03/18 06:15 Potassium 4.1 MMOL/L (3.6-5.0) 12/03/18 06:15 Chloride 96 mmol/L (98-107) L 12/03/18 06:15 Carbon Dioxide 28 mmol/L (22-30) 12/03/18 06:15 Anion Gap 15 (10-20) 12/03/18 06:15 BUN 9 mg/dl (9-20) 12/03/18 06:15 Creatinine 0.8 mg/dl (0.8-1.5) 12/03/18 06:15 Est GFR ( Amer) > 60 12/03/18 06:15 Est GFR (Non-Af Amer) > 60 12/03/18 06:15 Random Glucose 101 mg/dL (75-110) 12/03/18 06:15 Lactic Acid 2.7 MMOL/L (0.7-2.1) H 11/30/18 06:12 Calcium 9.1 mg/dL (8.4-10.2) 12/03/18 06:15 Total Bilirubin 0.3 mg/dl (0.2-1.3) 12/03/18 06:15 AST 27 U/L (17-59) 12/03/18 06:15 ALT 43 U/L (21-72) 12/03/18 06:15 Alkaline Phosphatase 72 U/L (38-126) 12/03/18 06:15 Troponin I < 0.0120 ng/mL (0.00-0.120) 11/30/18 06:12 NT-Pro-B Natriuret Pep 964 pg/ml (0-900) H 11/30/18 06:12 Total Protein 7.0 G/DL (6.3-8.2) 12/03/18 06:15 Albumin 3.8 g/dL (3.5-5.0) 12/03/18 06:15 Globulin 3.3 gm/dL (2.2-3.9) 12/03/18 06:15 Albumin/Globulin Ratio 1.2 (1.0-2.1) 12/03/18 06:15 Urine Color Straw (YELLOW) 11/30/18 15:26 Urine Clarity Clear (Clear) 11/30/18 15:26 Urine pH 7.0 (5.0-8.0) 11/30/18 15:26 Ur Specific [place] 1.008 (1.003-1.030) 11/30/18 15:26 Urine Protein Negative mg/dL (NEGATIVE) 11/30/18 15:26 Urine Glucose (UA) Neg mg/dL (NEGATIVE) 11/30/18 15:26 Urine Ketones Negative mg/dL (NEGATIVE) 11/30/18 15:26 Urine Blood Negative (NEGATIVE) 11/30/18 15:26 Urine Nitrate Negative (NEGATIVE) 11/30/18 15:26 Urine Bilirubin Negative (NEGATIVE) 11/30/18 15:26 Urine Urobilinogen 0.2-1.0 mg/dL (0.2-1.0) 11/30/18 15:26 Ur Leukocyte Esterase Neg [place]/uL (Negative) 11/30/18 15:26 Urine RBC (Auto) < 1 /hpf (0-3) 11/30/18 15:26 Urine Microscopic WBC < 1 /hpf (0-5) 11/30/18 15:26 Ur Squamous Epith Cells < 1 /hpf (0-5) 11/30/18 15:26 Urine Opiates Screen Negative (NEGATIVE) 11/30/18 15:26 Urine Methadone Screen Negative (NEGATIVE) 11/30/18 15:26 Ur Barbiturates Screen Negative (NEGATIVE) 11/30/18 15:26 Ur Phencyclidine Scrn Negative (NEGATIVE) 11/30/18 15:26 Ur Amphetamines Screen Negative (NEGATIVE) 11/30/18 15:26 U Benzodiazepines Scrn Negative (NEGATIVE) 11/30/18 15:26 U Oth Cocaine Metabols Negative (NEGATIVE) 11/30/18 15:26 U Cannabinoids Screen Negative (NEGATIVE) 11/30/18 15:26 Influenza Typ A,B (EIA) Negative for flu a/b (NEGATIVE) 11/30/18 06:10 - Hospital Course Hospital Course: anbx, resp tx, cough meds abd us no s/s dt. tremors stopped. Discharge Exam - Head Exam Head Exam: ATRAUMATIC, NORMAL INSPECTION, NORMOCEPHALIC - Eye Exam Eye Exam: EOMI, Normal appearance, PERRL Pupil Exam: NORMAL ACCOMODATION, PERRL - Respiratory Exam Respiratory Exam: Clear to PA & Lateral, NORMAL BREATHING PATTERN, UNREMARKABLE - Cardiovascular Exam Cardiovascular Exam: REGULAR RHYTHM, RRR, +S1, +S2 - GI/Abdominal Exam GI & Abdominal Exam: Normal Bowel Sounds, Soft, Unremarkable - Extremities Exam Extremities exam: full ROM, normal capillary refill, normal inspection, pedal pulses present - Back Exam Back exam: NORMAL INSPECTION - Neurological Exam Neurological exam: Alert, CN II-XII Intact, Normal Gait, Oriented x3, Reflexes Normal - Psychiatric Exam Psychiatric exam: Normal Affect, Normal Mood - Skin Skin Exam: Dry, Intact, Normal Color, Warm Discharge Plan - Discharge Medications Prescriptions: Albuterol HFA [Ventolin HFA 90 mcg/actuation (8 g)] 2 puff IH [id number] #1 puff guaiFENesin [Mucinex LA] 1,200 mg PO Q12 #20 tab Ibuprofen [Motrin Tab] 600 mg PO Q6 PRN #20 tab PRN Reason: Pain, Moderate (4-7) Promethazine DM [Phenergan DM Syrup] 5 ml PO Q6 PRN #250 ml PRN Reason: Cough - Follow Up Plan Condition: FAIR Disposition: HOME/ ROUTINE Instructions: Community-Acquired Pneumonia, Adult (DC) Additional Instructions: follow up appointment with Jordan Chance on December 07 at 11:15am, please bring insurance info and discharge papers to appointment. final dx-pna, tremors, alcohol withdrawal. no f/,c n/v/d at present. resps evena nd unlabored. vss, bw noted f/u rmg 2 days, rted prn, meds per med rec, meds e-rx Referrals: Dedrick Mendez MD [Medical Doctor] - Jordan Chance, DNP, [employer] [Advanced Practice Nurse] -
[2018-12-03] MEDS: Azithromycin 500 MG in Sodium Chloride 0.9% 250 ML IVPB SCH (09:00)
[2018-12-03 09:01] VITALS: BP 143/84; PULSE 96; RESP 20; TEMP 97.8; O2SAT 91
[2018-12-03] MEDS: guaiFENesin 600 mg ER Tab PO SCH (09:04)
[2018-12-03] MEDS: HCTZ/Losartan 12.5/50 Tab PO SCH (09:04)
[2018-12-03] MEDS: Metoprolol Succinate 50 mg XL Tab PO SCH (09:05)
[2018-12-03] MEDS: Pantoprazole 20 mg EC Tab PO SCH (09:05)
[2018-12-03] MEDS ORDERED: Albuterol-Ipratrop 3 mg / 0.5 (3 ml) UD ONE (11:36)
== END 2018-12-03 13:14 | disposition home or self-care (01) | DRG 90 ==
LOC: H.ER 04:55 → H.ERHOLD 07:02 → H.MEDSURG1 09:50
PROVIDERS: ADMIT Family Medicine; ATTEND Family Medicine
DX: J15.9 Unspecified bacterial pneumonia (principal); I10 Essential (primary) hypertension; F10.10 Alcohol abuse, uncomplicated; J40 Bronchitis, not specified as acute or chronic; E78.5 Hyperlipidemia, unspecified; E78.00 Pure hypercholesterolemia, unspecified; F41.9 Anxiety disorder, unspecified; M19.90 Unspecified osteoarthritis, unspecified site; F17.210 Nicotine dependence, cigarettes, uncomplicated

== ENCOUNTER 2018-12-07 12:27 | Emergency (ER) | payer MEDICAID ==
[2018-12-07 12:34] VITALS: BMI 32.8
[2018-12-07 12:36] VITALS: PULSE 92; RESP 18; TEMP 97.6; O2SAT 95
--- NOTE | 2018-12-07 13:23 | ED PDOC ---
Lower Extremity Pain/Injury Time Seen by Provider: 12/07/18 12:41 Chief Complaint (Nursing): Lower Extremity Problem/Injury Chief Complaint (Provider): Left great toe pain History Per: Patient History/Exam Limitations: no limitations Onset/Duration Of Symptoms: Hrs Current Symptoms Are (Timing): Still Present Additional History Per: Patient Additional Complaint(s): 53yo male, with history of hypertension, high cholesterol, comes to ER with complaints of atraumatic left great to pain since this morning. Patient denies any associated numbness, tingling, rash, fever or chills. No additional complaints. Past Medical History Reviewed: Historical Data, Nursing Documentation, Vital Signs Vital Signs: Last Vital Signs Temp 97.6 F 12/07/18 12:34 Pulse 92 H 12/07/18 12:34 Resp 18 12/07/18 12:34 BP 164/102 H 12/07/18 12:34 Pulse Ox 95 12/07/18 12:34 - Medical History PMH: Anxiety, Arthritis, Bronchitis, HTN, Hypercholesterolemia Denies: Atrial Fibrillation, CAD, Chronic Kidney Disease - Surgical History Surgical History: Endoscopy, Hernia Repair (ventral on 02/17/2018) - Family History Family History: States: Unknown Family Hx - Immunization History Hx Influenza Vaccination: No - Home Medications Home Medications: Ambulatory Orders Medication Instructions Recorded Losartan/Hydrochlorothiazide 100 mg PO DAILY 11/30/18 [Losartan-Hctz 100-25 mg Tab] Metoprolol Succinate [Toprol Xl] 50 mg PO DAILY 11/30/18 Albuterol HFA [Ventolin HFA 90 2 puff IH [id number] #1 puff 12/02/18 mcg/actuation (8 g)] Ibuprofen [Motrin Tab] 600 mg PO Q6 PRN #20 tab 12/02/18 Promethazine DM [Phenergan DM 5 ml PO Q6 PRN #250 ml 12/02/18 Syrup] guaiFENesin [Mucinex LA] 1,200 mg PO Q12 #20 tab 12/02/18 Omeprazole 40 mg PO DAILY #30 capsule. 12/03/18 Naproxen [Naprosyn] 500 mg PO BID PRN #7 tab 12/07/18 - Allergies Allergies/Adverse Reactions: Allergies Allergy/AdvReac Type Severity Reaction Status Date / Time No Known Allergies Allergy Verified 12/07/18 12:33 Review of Systems ROS Statement: Except As Marked, All Systems Reviewed And Found Negative Constitutional: Negative for: Fever, Chills Musculoskeletal: Positive for: Foot Pain (left great toe) Skin: Negative for: Rash Neurological: Negative for: Weakness, Numbness Physical Exam - Reviewed Nursing Documentation Reviewed: Yes Vital Signs Reviewed: Yes - Physical Exam Appears: Positive for: Non-toxic Skin: Positive for: Normal Color Pulses-Dorsalis Pedis (L): 2+ Pulses-Dorsalis Pedis (R): 2+ Extremity: Positive for: Normal ROM (FROM of all digits on left foot), Capillary Refill (< 2 seconds on all digits on left foot), Other (no break in skin, no lesions, warmth or erythema noted.). Negative for: Tenderness ((-) tenderness to podagra), Pedal Edema, Calf Tenderness, Deformity, Swelling Neurologic/Psych: Positive for: Alert, Oriented. Negative for: Motor/Sensory Deficits - ECG O2 Sat by Pulse Oximetry: 95 (RA) Pulse Ox Interpretation: Normal Medical Decision Making Medical Decision Making: Impression: Left great toe pain Plan: -- XR Left foot 1325 XR reviewed, no acute findings. Patient is stable for discharge home; instructed to follow up at podiatry clinic. Scribe Attestation: Documented by Racquel Remy, acting as a scribe for DA Peng. Provider Scribe Attestation: All medical record entries made by the Scribe were at my direction and personally dictated by me. I have reviewed the chart and agree that the record accurately reflects my personal performance of the history, physical exam, medical decision making, and the department course for this patient. I have also personally directed, reviewed, and agree with the discharge instructions and disposition. Disposition - Clinical Impression Clinical Impression: Toe pain - Disposition Referrals: Podiatry Clinic [Outside] Disposition Time: 13:25 Condition: STABLE Additional Instructions: FOLLOW UP WITH PMD FOR FURTHER EVALUATION RETURN TO ED IMMEDIATELY IF SYMPTOMS WORSEN TESSIE MCDONALD, thank you for letting us take care of you today. Your provider was Inge Ruelas MD and you were treated for LT FOOT PAIN. The emergency medical care you received today was directed at your acute symptoms. If you were prescribed any medication, please fill it and take as directed. It may take several days for your symptoms to resolve. Return to the Emergency Department if your symptoms worsen, do not improve, or if you have any other problems. Please contact your doctor or call one of the physicians/clinics you have been referred to that are listed on the Patient Visit Information form that is included in your discharge packet. Bring any paperwork you were given at discharge with you along with any medications you are taking to your follow up visit. Our treatment cannot replace ongoing medical care by a primary care provider outside of the emergency department. Thank you for allowing the [facility] team to be part of your care today. If you had an X-Ray or CT scan: A Radiologist will review the ED reading if any change in treatment is needed we will contact you. If you had a blood, urine, or wound culture: It will take several days for the results, if any change in treatment is needed we will contact you. If you had an STI test: It will take 48 hours for the results. Please call after 1 week if you have not heard back. Prescriptions: Naproxen [Naprosyn] 500 mg PO BID PRN #7 tab PRN Reason: Pain Instructions: Muscle and Bone Pain (DC) Print Language: [place]
[2018-12-07 14:19] VITALS: BP 140/90
--- NOTE | 2018-12-07 16:51 | RAD ---
Date of service: 12/07/2018 PROCEDURE: Left Foot Radiographs. HISTORY: Pain. No history of recent/ related trauma provided COMPARISON: None. FINDINGS: BONES: Normal. No fracture. JOINTS: Normal. SOFT TISSUES: Normal. OTHER FINDINGS: None. IMPRESSION: No significant or acute findings to account for/ related to the clinical presentation.
== END 2018-12-07 14:30 | disposition home or self-care (01) ==
LOC: H.ER 12:27
DX: M79.675 Pain in left toe(s) (principal)

== ENCOUNTER 2018-12-09 10:40 | Emergency (ER) | payer MEDICAID ==
[2018-12-09 10:40] VITALS: BMI 32.8
[2018-12-09 10:47] VITALS: RESP 18
[2018-12-09] MEDS ORDERED: Albuterol-Ipratrop 3 mg / 0.5 (3 ml) UD INH STA (12:00)
--- NOTE | 2018-12-09 12:20 | ED PDOC ---
HPI: CCC, URI, Sore Throat Time Seen by Provider: 12/09/18 11:26 Chief Complaint (Nursing): Cough, Cold, Congestion Chief Complaint (Provider): cough, nasal congestion History Per: Patient History/Exam Limitations: no limitations Additional Complaint(s): 53 y/o Homeless Male with hx of HTN, HL who presents with cough and nasal congestion. Patient was recently admitted to hospital for CAP and was discharged on 12/03/18. He states that his cough improved after being in the hospital but did not go away. He states that the cough has again become slightly worse productive of segura sputum. He now has nasal congestion, which he did not previously and has intermittent SOB and pleuritic C/P. Denies fever, chills, night sweats, N/V, diarrhea. He missed his f/u appointment with PMD on 12/07 Past Medical History Reviewed: Historical Data, Nursing Documentation, Vital Signs Vital Signs: Last Vital Signs Temp 97.9 F 12/09/18 10:47 Pulse 104 H 12/09/18 10:47 Resp 18 12/09/18 10:47 BP 211/112 H 12/09/18 10:47 Pulse Ox 97 12/09/18 10:47 - Medical History PMH: Anxiety, Arthritis, Bronchitis, HTN, Hypercholesterolemia Denies: Atrial Fibrillation, CAD, Chronic Kidney Disease - Surgical History Surgical History: Endoscopy, Hernia Repair (ventral on 02/17/2018) - Family History Family History: States: Unknown Family Hx - Immunization History Hx Influenza Vaccination: No - Home Medications Home Medications: Ambulatory Orders Medication Instructions Recorded Losartan/Hydrochlorothiazide 100 mg PO DAILY 11/30/18 [Losartan-Hctz 100-25 mg Tab] Metoprolol Succinate [Toprol Xl] 50 mg PO DAILY 11/30/18 Albuterol HFA [Ventolin HFA 90 2 puff IH [id number] #1 puff 12/02/18 mcg/actuation (8 g)] Ibuprofen [Motrin Tab] 600 mg PO Q6 PRN #20 tab 12/02/18 Promethazine DM [Phenergan DM 5 ml PO Q6 PRN #250 ml 12/02/18 Syrup] guaiFENesin [Mucinex LA] 1,200 mg PO Q12 #20 tab 12/02/18 Omeprazole 40 mg PO DAILY #30 capsule. 12/03/18 Naproxen [Naprosyn] 500 mg PO BID PRN #7 tab 12/07/18 Fluticasone Propionate [Flonase] 1 spr INH BID PRN 7 Days bottle 12/09/18 Guaifenesin [Mucinex] 1,200 mg PO BID PRN 7 Days 12/09/18 tab.er.12h Promethazine [Phenergan Syrup] 6.25 mg PO Q6 PRN 7 Days dose 12/09/18 - Allergies Allergies/Adverse Reactions: Allergies Allergy/AdvReac Type Severity Reaction Status Date / Time No Known Allergies Allergy Verified 12/07/18 12:33 Review of Systems Constitutional: Negative for: Sweats ENT: Positive for: Nose Congestion. Negative for: Ear Pain, Throat Pain Cardiovascular: Positive for: Chest Pain (pleuritic). Negative for: Palpitations Respiratory: Positive for: Cough, Shortness of Breath (intermittent) Gastrointestinal: Negative for: Nausea, Vomiting Physical Exam - Reviewed Nursing Documentation Reviewed: Yes Vital Signs Reviewed: Yes - Physical Exam Appears: Positive for: Non-toxic Skin: Positive for: Normal Color Eye Exam: Positive for: Normal appearance ENT: Positive for: TM Is/Are (normal B/L), Nasal Congestion. Negative for: Si nus Pain/Drainage, Pharyngeal Erythema, Tonsillar Exudate, Tonsillar Swelling Neck: Positive for: Normal Cardiovascular/Chest: Positive for: Regular Rate, Rhythm Respiratory: Positive for: Wheezing (intermittent wheezing on Right improved with cough). Negative for: Rales, Rhonchi Gastrointestinal/Abdominal: Positive for: Normal Exam Lymphatic: Positive for: Normal Exam Neurologic/Psych: Positive for: Alert, Oriented - Laboratory Results Result Diagrams: 12/09/18 12:25 12/09/18 12:25 - ECG O2 Sat by Pulse Oximetry: 97 Medical Decision Making Medical Decision Making: CXR PA and lateral Rapid flu CBC, CMP Flonase 1 spray in each nostril x 1 DuoNEb x 1 14:00: re-evaluated, lungs clear CXR: LUNGS: Prior mostly bibasilar diffuse interstitial abnormal lung markings have cleared. No interval consolidation suggested. PLEURA: No significant pleural effusion identified. No pneumothorax apparent. CARDIOVASCULAR: No aortic atherosclerotic calcification present. Minimal cardiomegaly-similar. Tortuous thoracic aorta-similar No significant appearing pulmonary venous congestion. OSSEOUS STRUCTURES: Thoracic spondylosis. VISUALIZED UPPER ABDOMEN: Normal. OTHER FINDINGS: None. IMPRESSION: Interval improvement of the prior diffuse bibasilar interstitial pathology. No interval consolidation or interval acute cardiopulmonary pathology apparent. Stable for D/C home with recommendation to f/u with PMD within the next week. Pt encouraged to use Albuterol inhaler and cough meds for cough. Return instructio ns given. Disposition - Clinical Impression Clinical Impression: Common cold - Patient ED Disposition Is Patient to be Admitted: No Counseled Patient/Family Regarding: Studies Performed, Diagnosis, Need For Followup - Disposition Disposition: Routine/Home Disposition Time: 14:27 Condition: STABLE Additional Instructions: Use albuterol inhaler and cough medications for cough. Use Flonase for nasal congestion. Return to ER if you develop worsening shortness of breath. F/u with your primary care doctor within the next week for post-pneumonia f/u. Prescriptions: Fluticasone Propionate [Flonase] 1 spr INH BID PRN 7 Days bottle PRN Reason: Nasal Congestion Guaifenesin [Mucinex] 1,200 mg PO BID PRN 7 Days tab.er.12h PRN Reason: Cough Promethazine [Phenergan Syrup] 6.25 mg PO Q6 PRN 7 Days dose PRN Reason: Cough Instructions: Viral Upper Respiratory Infection, Adult (DC) Forms: [facility] (Macedonian) Print Language: ROMANSH
--- NOTE | 2018-12-09 12:41 | RAD ---
Date of service: 12/09/2018 HISTORY: shortness of breath, cough COMPARISON: 11/30/2018 TECHNIQUE: Chest PA and lateral FINDINGS: LUNGS: Prior mostly bibasilar diffuse interstitial abnormal lung markings have cleared. No interval consolidation suggested. PLEURA: No significant pleural effusion identified. No pneumothorax apparent. CARDIOVASCULAR: No aortic atherosclerotic calcification present. Minimal cardiomegaly-similar. Tortuous thoracic aorta-similar No significant appearing pulmonary venous congestion. OSSEOUS STRUCTURES: Thoracic spondylosis. VISUALIZED UPPER ABDOMEN: Normal. OTHER FINDINGS: None. IMPRESSION: Interval improvement of the prior diffuse bibasilar interstitial pathology. No interval consolidation or interval acute cardiopulmonary pathology apparent.
[2018-12-09] MEDS ORDERED: Albuterol-Ipratrop 3 mg / 0.5 (3 ml) UD ONE (12:51)
[2018-12-09 13:01] LABS: BASO # 0.1 K/uL (0.0-0.2); BASO % 1.2 % (0.0-2.0); EOS # 0.3 K/uL (0.0-0.7); EOS % 2.8 % (0.0-4.0); HEMOGLOBIN 13.8 g/dL (12.0-18.0); LYMPH # 1.7 K/uL (1.0-4.3); LYMPH % 18.2 % (20.0-40.0); MEAN CELL VOLUME 92.6 fl (80.0-94.0); MEAN CORPUSCULAR HEMOGLOBIN 31.1 pg (27.0-31.0); MEAN CORPUSCULAR HGB CONC 33.5 g/dL (33.0-37.0); MEAN PLATELET VOLUME 7.2 fl (7.2-11.7); MONO # 0.6 K/uL (0.0-0.8); MONO % 6.2 % (0.0-10.0); NEUT # 6.7 K/uL (1.8-7.0); NEUT % 71.6 % (50.0-75.0); NRBC % 0.1 % (0.0-0.0); RBC 4.43 Mil/uL (4.40-5.90); RED CELL DISTRIBUTION WIDTH 13.7 % (11.5-14.5); WHITE BLOOD COUNT 9.4 K/uL (4.8-10.8)
[2018-12-09 13:24] LABS: ALB/GLOB RATIO 1.2 (1.0-2.1); ALBUMIN 4.1 g/dL (3.5-5.0); ALT/SGPT 34 U/L (21-72); AST/SGOT 35 U/L (17-59); BLOOD UREA NITROGEN 10 mg/dl (9-20); GFR NON-AFRICAN AMERICAN > 60
--- NOTE | 2018-12-09 13:26 | CARD ---
APPROVED REPORT Date of service: 12/09/2018 EKG Measurement Heart [id number] <Conclusion> Normal sinus rhythm Possible Left atrial enlargement Borderline ECG
[2018-12-09 15:01] VITALS: BP 127/73; PULSE 87; TEMP 98.2; O2SAT 95
== END 2018-12-09 14:52 | disposition home or self-care (01) ==
LOC: H.ER 10:40
DX: J00 Acute nasopharyngitis [common cold] (principal); R05 Cough; R09.81 Nasal congestion; E78.00 Pure hypercholesterolemia, unspecified; F41.9 Anxiety disorder, unspecified; I10 Essential (primary) hypertension; Z59.0 Homelessness